=== PATIENT | male | born 1965 | race Caucasian/White ===

== ENCOUNTER 2018-01-02 20:26 | Inpatient (IN) | payer OTHER, SELFPAY ==
[2018-01-02 20:26] VITALS: BP 157/87; PULSE 89; RESP 24; TEMP 36.9; O2SAT 86; BMI 43.5
--- NOTE | 2018-01-02 20:37 | RAD_ITS ---
STUDY: X-RAY CHEST REASON FOR EXAM: Male, 52 years old. Lower extremity swelling TECHNIQUE: Frontal view COMPARISON: July 29, 2017 FINDINGS: The lungs are expanded. There is mild left basilar atelectasis. Normal size heart. Normal mediastinum and li. Normal visualized pulmonary arteries. Normal visualized aortic arch and descending thoracic aorta. Normal visualized thoracic spine. Normal visualized ribs, clavicles, and shoulders. There is no demonstrated abnormality of the visualized soft tissue structures of the upper abdomen. RAD/Chest 1 View (Portable) IMPRESSION: Mild left basilar atelectasis. Electronically Signed: Timoteo Barney DO at 21:27 EDT Tel [phone], Service support ,
--- NOTE | 2018-01-02 20:37 | EKG12_ITS ---
Test Reason : Blood Pressure : / mmHG Vent. Rate : 078 BPM Atrial Rate : 078 BPM P-R Int : 158 ms QRS Dur : 114 ms QT Int : 394 ms P-R-T Axes : 055 -23 033 degrees QTc Int : 449 ms Normal sinus rhythm Normal ECG Confirmed by OSIRIS HANNAH MD ([id number]), editorial specialist JOJO STRANGE ([id number] on 01/08/2018 3:38:42 PM Referred By: ISSA Confirmed By:OSIRIS HANNAH MD
--- NOTE | 2018-01-02 20:51 | ED.VISSUMM ---
- ER Visit Summary Date of Service: 01/02/18 Chief Complaint: Bilateral leg swelling and shortness of breath History of Present Illness: The patient is a 52 M presenting with bilateral leg swelling and shortness of breath. This has been ongoing for the past week. He saw his primary care physician yesterday. He doubled his dose of Lasix this morning. He had no improvement. He has shortness of breath with exertion. He has gained 42 pounds since August. He denies chest pain. Denies fever cough or other complaints. Physical Examination: Vitals are stable. Patient is afebrile. Alert no acute distress. Pulse ox 86% on room air HEENT exam is unremarkable. Neck is supple. Lungs are wheezing bilaterally. Heart is regular rate and rhythm. Abdomen is soft nontender nondistended. Extremities symmetric edema Skin is warm and dry. No focal neurologic deficit. Remainder of exam is unremarkable. Emergency Department Course and Treatment: Patient is given albuterol and Atrovent aerosols. He was given Solumedrol IV. EKG is sinus rate is 78 with no acute ischemic changes. Chest x-ray shows left basilar atelectasis. CBC chemistries unremarkable other than glucose 191. Troponin is negative. BNP normal. He was given Lasix IV. He is hypoxic at rest. He has no home O2. Discussed with the hospitalist for admission. Disposition: Admission Impression: COPD exacerbation, hypoxia, fluid overload This note was generated with [employer] dictation software. It may contain incorrect words, spelling, and punctuation that were not noted in review of the chart prior to signing ED Disposition - Plan for ED Patient: Chief Complaint: Edema Referrals: Thompson Ramos DO [Primary Care Provider] -
[2018-01-02] MEDS: Ipratropium/Albuterol Sulfate 3 ML AMPUL.NEB INHALATION (20:54)
[2018-01-02] MEDS: Albuterol 2.5 MG/3 ML VIAL.NEB. INHALATION ×2 (20:54)
[2018-01-02 20:55] VITALS: PULSE 82; RESP 12
[2018-01-02 20:59] LABS: Absolute Neutrophil Count 4.3 X10^3/uL (2.0-7.7); Basophil# 0.06 X10^3/uL; Basophil% 0.9 % (0-1); Eosinophil# 0.11 X10^3/uL; Eosinophils% 1.7 % (0-5); Hematocrit 43.1 % (40-54); Hemoglobin 14.8 g/dl (13.0-16.5); Lymphocyte % 22.8 % (19-41); Mean Corp Hgb Conc 34.3 g/gl (32-36); Mean Corpuscular Hgb 32.4 pg (27.0-32.0); Mean Corpuscular Volume 94.3 fL (80-94); Mean Platelet Vol. 9.2 fl (6.2-12.0); Monocyte# 0.64 X10^3/uL; Monocyte% 9.7 % (0-10); Neutrophil # 4.26 X10^3/uL (2.7-7.7); Neutrophil % 64.7 % (47-70); Platelet Count 220 K/mm3 (150-450); RBC Distribution Width CV 12.9 % (11.6-14.6); RBC Distribution Width SD 43.3 fl (35.1-43.9); Red Blood Count 4.57 M/mm3 (4.6-6.2); White Blood Count 6.6 K/mm3 (4.4-11.0)
[2018-01-02 21:00] LABS: POSITIVE DIFFERENTIAL NO
[2018-01-02 21:01] LABS: POSITIVE COUNT NO; POSITIVE MORPHOLOGY NO
[2018-01-02 21:12] LABS: Anion Gap 11 (5-15); BUN 14 mg/dL (7-18); BUN/Creat Ratio 14.4 RATIO (10-20); Calcium,Total 8.3 mg/dL (8.5-10.1); Chloride 101 mmol/L (98-107); Creatinine, Serum 0.97 mg/dL (0.70-1.30); EST Glomerular Filtration Rate 86 mL/min (>60); Est Glom Filt Rate - Afr Amer 104 mL/min (>60); Estimated Creatinine Clearance 97.78 ml/min; Glucose 191 mg/dL (74-106); Potassium 3.5 mmol/L (3.5-5.1); Sodium Level 138 mmol/L (136-145)
[2018-01-02 21:23] VITALS: PULSE 83; RESP 16
[2018-01-02 22:13] LABS: BNP,B-Type NATRIURETIC PEPTIDE 18.4 pg/mL (0-100)
[2018-01-02 22:36] VITALS: BP 152/72; PULSE 87; RESP 16; O2SAT 94
[2018-01-02] MEDS: Furosemide 40 MG/4 ML Vial IV (22:36)
[2018-01-02] MEDS: Ondansetron 4 MG/2 ML Vial IV (22:36)
[2018-01-02] MEDS: MethylPREDNISolone 125 MG/2 ML Vial IV (22:36)
[2018-01-02] MEDS: Morphine 4 MG/ML Syringe IV (22:36)
[2018-01-02 22:38] VITALS: BP 152/72; PULSE 86; O2SAT 94
--- NOTE | 2018-01-02 22:47 | PCM.HP.STD ---
Problem List (1) Tobacco abuse Status: Chronic (2) Chronic hypoxemic respiratory failure Status: Chronic (3) CHF (congestive heart failure) Status: Chronic Qualifiers: (4) Hypertension Status: Chronic Qualifiers: (5) Dyslipidemia Status: Chronic (6) MEREDITH treated with BiPAP Status: Chronic (7) COPD (chronic obstructive pulmonary disease) Status: Chronic Qualifiers: History of Present Illness Date of Admission: 01/02/18 Chief Complaint: Bilateral leg pain and swelling. The patient is a 52 year old M with past medical history as mentioned above presented to the emergency room because of 1 week history of bilateral leg pain and swelling. He mentioned that his symptoms started around 1 week ago with progressively increasing bilateral leg swelling, equal on both sides, associated with dull aching pain, not radiating, constant, sometimes aggravated by standing and relieved by rest and without other associated symptoms. According to the opposition, patient complained of shortness of breath as well. For me, he denies any shortness of breath. Denied cough or sputum production. Denied orthopnea or PND. He denied sore throat, sinus or nasal congestion. Denies fever or chills. He does have a history of COPD and he mentioned that he was discharged from the hospital on oxygen to home back in August, but later, he was taken off oxygen. He had a history of hypertension which seemed to be under fair control with Norvasc, Cardizem and metoprolol. He has a history of type 2 diabetes mellitus and apparently, he was started recently on metformin. His hemoglobin A1c was 6.7 on August,. In the emergency room and according to the physician, patient was dyspneic, tachypneic and having wheezing. His pulse oximeter was 86% on room air. He received DuoNeb, albuterol, IV Lasix and IV salmeterol. Patient remained dyspneic and tachypneic. He is afebrile, blood pressure and heart rate are stable. His routine blood work was unremarkable. His troponin and BNP was normal. His EKG revealed normal sinus rhythm without evidence of acute ischemic changes. Chest x-ray showed no obvious infiltrate, consolidation or CHF. He is being admitted for mild acute COPD exacerbation with hypoxia and bilateral leg edema/pain due to probable acute on chronic diastolic CHF. Past Medical History Past Medical History (Chronic Problems): Chronic Problems (Last Updated 01/02/18 @ 22:47 by Shira Rios MD) Alcohol abuse (Chronic) Tobacco abuse (Chronic) Chronic hypoxemic respiratory failure (Chronic) Dyspnea (Chronic) CHF (congestive heart failure) (Chronic) Hypertension (Chronic) Dyslipidemia (Chronic) MEREDITH treated with BiPAP (Chronic) COPD (chronic obstructive pulmonary disease) (Chronic) Allergies losartan Adverse Reaction (Verified 01/02/18 20:28) Angioedema Home Medications: Ambulatory Orders Medication Instructions Recorded Amlodipine [Norvasc] 10 mg PO DAILY 07/29/17 Pravastatin Sodium 80 mg PO QHS 07/29/17 Diltiazem CD [Cardizem CD] 180 mg PO DAILY #30 cap 08/03/17 Folic Acid 1 mg PO DAILY@0800 #30 tab 08/03/17 Furosemide [Lasix] 40 mg PO BID #60 tab 08/03/17 Metoprolol Tartrate [Lopressor 25 mg PO BID #60 tab 08/03/17 (beta fang)] Famotidine [Pepcid] 20 mg PO BID #6 tab 08/09/17 Metformin HCl 500 mg PO BID #60 tab 08/09/17 albuterol sulfate 90 mcg/actuation 2 puff INHALATION Q4H PRN #1 ea 10/25/17 breath activated powder inhaler Surgical History: appendectomy, arthroscopy, knee, cataract Psychiatric History: No pertinent psych hx Lives: Spouse/ Significant Other Smoking Status: Former smoker Alcohol: None Drugs: None - *Family History Paternal History Items: Heart Disease - Age of 53 of [place], uncles all have severe heart disease Maternal History Items: Cancer - renal Sibling History Items: No pertinent history Review of Systems Constitutional: Denies: Anorexia, Chills, Fever, Weakness Eyes: Denies: Blurred vision, Double vision, Drainage, Redness HEENT: Denies: Difficulty Hearing, Ear Pain, Eye Pain, Nasal Congestion, Sore Throat Cardiovascular: Reports: Edema. Denies: Chest Pain, Chest Pressure, Chest Tightness, Light Headedness, Orthopnea, Syncope Respiratory: Denies: Cough, Pleuritic Pain, Shortness of Breath, Sputum production, Wheezing Gastrointestinal: Denies: Abdominal Pain, Constipation, Diarrhea, Nausea, Vomiting Genitourinary: Denies: Dysuria, Frequency, Hematuria Musculoskeletal: Reports: Leg Pain. Denies: Arm Pain, Back Pain Skin: Denies: Dryness, Rash Neurological: Denies: Balance problems, Blurred vision, Change in Speech, Slurred speech, Confusion, Focal weakness, Headaches, Incoordination Psychiatric: Denies: Anxiety, Depression Endocrine: Denies: Change in Body Habitus, Polydipsia VTE Information - Inpt Only VTE Present on Admission: No VTE Mechan Device Prophylaxis: None VTE Pharm Prophylaxis ordered?: Yes - Physical Exam General: Alert, Oriented x3, Cooperative, - - Moderately short of breath. HEENT: Atraumatic, PERRLA, EOMI Oral: Moist Mucosa, No Gingival or Mucosal Lesions/ Ulcerations Neck: Supple, No JVD, Negative Carotid Bruits Lungs: Clear to auscultation, No wheeze, No rales, Diminished, Rhonchi Cardiovascular: Regular rate, Regular Rhythm, Normal S1, Normal S2, PMI Normal Abdomen: Bowel Sounds Present, Soft, Non Tender, Non-Distended, No Hepato-splenomegaly Extremities: No clubbing, No cyanosis, Edema - ++ Edema. Skin: No rashes, No breakdown Musculoskeletal: No Tenderness to Palpation of Joints or Extremities Lymphatic: No Cervical, Supraclavicular, or Inguinal Adenopathy Neurological: Cranial nerves II-XII grossly intact, Motor Exam 5/5 strength throughout Psych/Mental Status: Normal Affect, Appropriate, Alert and oriented to time, place, person, mood and affect Vital Signs Temp Pulse Resp BP Pulse Ox 98.5 F 86 16 152/72 H 94 01/02/18 20:26 01/02/18 22:38 01/02/18 22:36 01/02/18 22:38 01/02/18 22:38 Oxygen Flow Rate (L/min) 2 Oxygen Delivery Method Nasal Cannula Laboratory Tests 01/02/18 01/02/18 01/02/18 Range/Units 20:40 20:40 20:40 WBC 6.6 (4.4-11.0) K/mm3 RBC 4.57 L (4.6-6.2) M/mm3 Hgb 14.8 (13.0-16.5) g/dl Hct 43.1 (40-54) % MCV 94.3 H (80-94) fL MCH 32.4 H (27.0-32.0) pg MCHC 34.3 (32-36) g/gl RDW 12.9 (11.6-14.6) % RDW Differential 43.3 (35.1-43.9) fl Plt Count 220 (150-450) K/mm3 MPV 9.2 (6.2-12.0) fl Immature Gran % (Auto) 0.200 (0.0-0.9) % Neut % (Auto) 64.7 (47-70) % Lymph % (Auto) 22.8 (19-41) % [place] % (Auto) 9.7 (0-10) % Eos % (Auto) 1.7 (0-5) % Baso % (Auto) 0.9 (0-1) % Absolute Neuts (auto) 4.3 (2.0-7.7) X10^3/uL Absolute Lymphs (auto) 1.50 (0.83-4.51) X10^3/ul Total Counted Not Reportable Sodium 138 (136-145) mmol/L Potassium 3.5 (3.5-5.1) mmol/L Chloride 101 (98-107) mmol/L Carbon Dioxide 26.0 (21.0-32.0) mmol/L Anion Gap 11 (5-15) BUN 14 (7-18) mg/dL Creatinine 0.97 (0.70-1.30) mg/dL Estim Creat Clear Calc 97.78 ml/min Est GFR (MDRD) Af Amer 104 (>60) mL/min Est GFR (MDRD) Non-Af 86 (>60) mL/min BUN/Creatinine Ratio 14.4 (10-20) RATIO Glucose 191 H (74-106) mg/dL Calcium 8.3 L (8.5-10.1) mg/dL Troponin I < 0.02 (<0.06) ng/mL B-Natriuretic Peptide 18.4 (0-100) pg/mL Clinical Impression(s) from Imaging Studies Chest X-Ray 01/02/18 20:37 IMPRESSION: Mild left basilar atelectasis. Electronically Signed: Timoteo Barney DO at 21:27 EDT Tel [phone], Service support , Assessment/Plan This is a 52 years old male patient presented to the emergency room because of bilateral leg swelling and pain and according to a physician, patient complained of shortness of breath, found to have acute COPD exacerbation with hypoxia and probable acute on chronic diastolic CHF. #1 mild acute COPD exacerbation/hypoxia: Reportedly, patient was dyspneic and tachypneic as well as having significant wheezing. He received DuoNeb, albuterol and IV Solu-Medrol. When I saw the patient, his chest was almost clear but he remained on 2 L of oxygen. His pulse ox upon arrival was 86% on room air. Chest x-ray showed no acute infiltrate. EKG reviewed as above. Plan: Admit to PCU, cardiac monitoring, oxygen by nasal cannula to keep O2 saturation more than 92%, DuoNeb every 6 hours, albuterol as needed, prednisone 40 mg p.o. daily, incentive spirometer, chest physical therapy, pulmonology consult. #2 probable acute on chronic diastolic CHF: This is based on symptoms of bilateral leg swelling and edema. Patient denied dyspnea, orthopnea or PND. He had 2D echocardiogram back in July, and revealed ejection fraction 65%. Patient was on Lasix 40 mg twice daily at home. He does have significant bilateral leg edema. Plan: IV Lasix, fluid restriction to less than 1500 cc daily continue metoprolol. #3 COPD/chronic respiratory failure: Patient has COPD, he quit smoking recently. According to the patient, he was on oxygen for couple of months on August, and he was taken off that oxygen since then. At this time, pulse ox was 86% on room air. It improved with oxygen 2 L. Plan as above. #4 hypertension: Blood pressure stable, continue Norvasc, Cardizem and metoprolol. #5 type 2 diabetes mellitus: ADA diet, Accu-Cheks, insulin scale, hold metformin. #6 obstructive sleep apnea. Continue BiPAP with the same settings. Pulmonology consult. #7 hyperlipidemia: Continue statins. #8 DVT prophylaxis: Subcu Lovenox. This note was generated with [employer] dictation software. It may contain incorrect words, spelling, and punctuation that were not noted in checking the note before signing. Code Visit Inpatient E&M: 76531 Init Hosp L3
--- NOTE | 2018-01-02 22:51 | HP.PCM_ITS ---
Problem List (1) Tobacco abuse Status: Chronic (2) Chronic hypoxemic respiratory failure Status: Chronic (3) CHF (congestive heart failure) Status: Chronic Qualifiers: (4) Hypertension Status: Chronic Qualifiers: (5) Dyslipidemia Status: Chronic (6) MEREDITH treated with BiPAP Status: Chronic (7) COPD (chronic obstructive pulmonary disease) Status: Chronic Qualifiers: History of Present Illness Date of Admission: 01/02/18 Chief Complaint: Bilateral leg pain and swelling. The patient is a 52 year old M with past medical history as mentioned above presented to the emergency room because of 1 week history of bilateral leg pain and swelling. He mentioned that his symptoms started around 1 week ago with progressively increasing bilateral leg swelling, equal on both sides, associated with dull aching pain, not radiating, constant, sometimes aggravated by standing and relieved by rest and without other associated symptoms. According to the opposition, patient complained of shortness of breath as well. For me, he denies any shortness of breath. Denied cough or sputum production. Denied orthopnea or PND. He denied sore throat, sinus or nasal congestion. Denies fever or chills. He does have a history of COPD and he mentioned that he was discharged from the hospital on oxygen to home back in August, but later, he was taken off oxygen. He had a history of hypertension which seemed to be under fair control with Norvasc, Cardizem and metoprolol. He has a history of type 2 diabetes mellitus and apparently, he was started recently on metformin. His hemoglobin A1c was 6.7 on August,. In the emergency room and according to the physician, patient was dyspneic, tachypneic and having wheezing. His pulse oximeter was 86% on room air. He received DuoNeb, albuterol, IV Lasix and IV salmeterol. Patient remained dyspneic and tachypneic. He is afebrile, blood pressure and heart rate are stable. His routine blood work was unremarkable. His troponin and BNP was normal. His EKG revealed normal sinus rhythm without evidence of acute ischemic changes. Chest x-ray showed no obvious infiltrate, consolidation or CHF. He is being admitted for mild acute COPD exacerbation with hypoxia and bilateral leg edema/pain due to probable acute on chronic diastolic CHF. Past Medical History Past Medical History (Chronic Problems): Chronic Problems (Last Updated 01/02/18 @ 22:47 by Shira Rios MD) Alcohol abuse (Chronic) Tobacco abuse (Chronic) Chronic hypoxemic respiratory failure (Chronic) Dyspnea (Chronic) CHF (congestive heart failure) (Chronic) Hypertension (Chronic) Dyslipidemia (Chronic) MEREDITH treated with BiPAP (Chronic) COPD (chronic obstructive pulmonary disease) (Chronic) Allergies losartan Adverse Reaction (Verified 01/02/18 20:28) Angioedema Home Medications: Ambulatory Orders Medication Instructions Recorded Amlodipine [Norvasc] 10 mg PO DAILY 07/29/17 Pravastatin Sodium 80 mg PO QHS 07/29/17 Diltiazem CD [Cardizem CD] 180 mg PO DAILY #30 cap 08/03/17 Folic Acid 1 mg PO DAILY@0800 #30 tab 08/03/17 Furosemide [Lasix] 40 mg PO BID #60 tab 08/03/17 Metoprolol Tartrate [Lopressor 25 mg PO BID #60 tab 08/03/17 (beta fang)] Famotidine [Pepcid] 20 mg PO BID #6 tab 08/09/17 Metformin HCl 500 mg PO BID #60 tab 08/09/17 albuterol sulfate 90 mcg/actuation 2 puff INHALATION Q4H PRN #1 ea 10/25/17 breath activated powder inhaler Surgical History: appendectomy, arthroscopy, knee, cataract Psychiatric History: No pertinent psych hx Lives: Spouse/ Significant Other Smoking Status: Former smoker Alcohol: None Drugs: None - *Family History Paternal History Items: Heart Disease - Age of 53 of [place], uncles all have severe heart disease Maternal History Items: Cancer - renal Sibling History Items: No pertinent history Review of Systems Constitutional: Denies: Anorexia, Chills, Fever, Weakness Eyes: Denies: Blurred vision, Double vision, Drainage, Redness HEENT: Denies: Difficulty Hearing, Ear Pain, Eye Pain, Nasal Congestion, Sore Throat Cardiovascular: Reports: Edema. Denies: Chest Pain, Chest Pressure, Chest Tightness, Light Headedness, Orthopnea, Syncope Respiratory: Denies: Cough, Pleuritic Pain, Shortness of Breath, Sputum production, Wheezing Gastrointestinal: Denies: Abdominal Pain, Constipation, Diarrhea, Nausea, Vomiting Genitourinary: Denies: Dysuria, Frequency, Hematuria Musculoskeletal: Reports: Leg Pain. Denies: Arm Pain, Back Pain Skin: Denies: Dryness, Rash Neurological: Denies: Balance problems, Blurred vision, Change in Speech, Slurred speech, Confusion, Focal weakness, Headaches, Incoordination Psychiatric: Denies: Anxiety, Depression Endocrine: Denies: Change in Body Habitus, Polydipsia VTE Information - Inpt Only VTE Present on Admission: No VTE Mechan Device Prophylaxis: None VTE Pharm Prophylaxis ordered?: Yes - Physical Exam General: Alert, Oriented x3, Cooperative, - - Moderately short of breath. HEENT: Atraumatic, PERRLA, EOMI Oral: Moist Mucosa, No Gingival or Mucosal Lesions/ Ulcerations Neck: Supple, No JVD, Negative Carotid Bruits Lungs: Clear to auscultation, No wheeze, No rales, Diminished, Rhonchi Cardiovascular: Regular rate, Regular Rhythm, Normal S1, Normal S2, PMI Normal Abdomen: Bowel Sounds Present, Soft, Non Tender, Non-Distended, No Hepato- splenomegaly Extremities: No clubbing, No cyanosis, Edema - ++ Edema. Skin: No rashes, No breakdown Musculoskeletal: No Tenderness to Palpation of Joints or Extremities Lymphatic: No Cervical, Supraclavicular, or Inguinal Adenopathy Neurological: Cranial nerves II-XII grossly intact, Motor Exam 5/5 strength throughout Psych/Mental Status: Normal Affect, Appropriate, Alert and oriented to time, place, person, mood and affect Vital Signs Temp Pulse Resp BP Pulse Ox 98.5 F 86 16 152/72 H 94 01/02/18 20:26 01/02/18 22:38 01/02/18 22:36 01/02/18 22:38 01/02/18 22:38 Oxygen Flow Rate (L/min) 2 Oxygen Delivery Method Nasal Cannula Laboratory Tests 3 01/02/18 01/02/18 01/02/18 Range/Units 20:40 20:40 20:40 WBC 6.6 (4.4-11.0) K/mm3 RBC 4.57 L (4.6-6.2) M/mm3 Hgb 14.8 (13.0-16.5) g/dl Hct 43.1 (40-54) % MCV 94.3 H (80-94) fL MCH 32.4 H (27.0-32.0) pg MCHC 34.3 (32-36) g/gl RDW 12.9 (11.6-14.6) % RDW Differential 43.3 (35.1-43.9) fl Plt Count 220 (150-450) K/mm3 MPV 9.2 (6.2-12.0) fl Immature Gran % (Auto) 0.200 (0.0-0.9) % Neut % (Auto) 64.7 (47-70) % Lymph % (Auto) 22.8 (19-41) % [place] % (Auto) 9.7 (0-10) % Eos % (Auto) 1.7 (0-5) % Baso % (Auto) 0.9 (0-1) % Absolute Neuts (auto) 4.3 (2.0-7.7) X10^3/uL Absolute Lymphs (auto) 1.50 (0.83-4.51) X10^3/ul Total Counted Not Reportable Sodium 138 (136-145) mmol/L Potassium 3.5 (3.5-5.1) mmol/L Chloride 101 (98-107) mmol/L Carbon Dioxide 26.0 (21.0-32.0) mmol/L Anion Gap 11 (5-15) BUN 14 (7-18) mg/dL Creatinine 0.97 (0.70-1.30) mg/dL Estim Creat Clear Calc 97.78 ml/min Est GFR (MDRD) Af Amer 104 (>60) mL/min Est GFR (MDRD) Non-Af 86 (>60) mL/min BUN/Creatinine Ratio 14.4 (10-20) RATIO Glucose 191 H (74-106) mg/dL Calcium 8.3 L (8.5-10.1) mg/dL Troponin I < 0.02 (<0.06) ng/mL B-Natriuretic Peptide 18.4 (0-100) pg/mL Clinical Impression(s) from Imaging Studies Chest X-Ray 01/02/18 20:37 IMPRESSION: Mild left basilar atelectasis. Electronically Signed: Timoteo Barney DO at 21:27 EDT Tel [phone], Service support , Assessment/Plan This is a 52 years old male patient presented to the emergency room because of bilateral leg swelling and pain and according to a physician, patient complained of shortness of breath, found to have acute COPD exacerbation with hypoxia and probable acute on chronic diastolic CHF. #1 mild acute COPD exacerbation/hypoxia: Reportedly, patient was dyspneic and tachypneic as well as having significant wheezing. He received DuoNeb, albuterol and IV Solu-Medrol. When I saw the patient, his chest was almost clear but he remained on 2 L of oxygen. His pulse ox upon arrival was 86% on room air. Chest x-ray showed no acute infiltrate. EKG reviewed as above. Plan : Admit to PCU, cardiac monitoring, oxygen by nasal cannula to keep O2 saturation more than 92%, DuoNeb every 6 hours, albuterol as needed, prednisone 40 mg p.o. daily, incentive spirometer, chest physical therapy, pulmonology consult. #2 probable acute on chronic diastolic CHF: This is based on symptoms of bilateral leg swelling and edema. Patient denied dyspnea, orthopnea or PND. He had 2D echocardiogram back in July, and revealed ejection fraction 65 %. Patient was on Lasix 40 mg twice daily at home. He does have significant bilateral leg edema. Plan: IV Lasix, fluid restriction to less than 1500 cc daily continue metoprolol. #3 COPD/chronic respiratory failure: Patient has COPD, he quit smoking recently. According to the patient, he was on oxygen for couple of months on August, and he was taken off that oxygen since then. At this time, pulse ox was 86% on room air. It improved with oxygen 2 L. Plan as above. #4 hypertension: Blood pressure stable, continue Norvasc, Cardizem and metoprolol. #5 type 2 diabetes mellitus: ADA diet, Accu-Cheks, insulin scale, hold metformin. #6 obstructive sleep apnea. Continue BiPAP with the same settings. Pulmonology consult. #7 hyperlipidemia: Continue statins. #8 DVT prophylaxis: Subcu Lovenox. This note was generated with [employer] dictation software. It may contain incorrect words, spelling, and punctuation that were not noted in checking the note before signing. Code Visit Inpatient E&M: 61096 Init Hosp L3
[2018-01-02 23:51] VITALS: BP 142/83; PULSE 70; RESP 18; TEMP 36.9; O2SAT 93
[2018-01-02 23:54] VITALS: BMI 43.7
[2018-01-03] VITALS (19 sets, daily range): BP systolic 140–154; BP diastolic 73–87; PULSE 78–98; RESP 12–24; TEMP 36.4–36.8; O2SAT 89–95; BMI 43.7
[2018-01-03] MEDS: Ipratropium/Albuterol Sulfate 3 ML AMPUL.NEB INHALATION ×4 (01:47→19:02)
[2018-01-03] MEDS: oxyCODONE 5 MG Tablet PO ×3 (02:04→19:18)
[2018-01-03] MEDS: Furosemide 40 MG/4 ML Vial IV ×3 (05:50→22:43)
[2018-01-03] MEDS: Enoxaparin 40 MG/0.4 ML Syringe SC (05:50)
[2018-01-03 06:53] LABS: Anion Gap 9 (5-15); BUN 15 mg/dL (7-18); BUN/Creat Ratio 13.6 RATIO (10-20); Calcium,Total 8.5 mg/dL (8.5-10.1); Chloride 98 mmol/L (98-107); EST Glomerular Filtration Rate 75 mL/min (>60); Est Glom Filt Rate - Afr Amer 90 mL/min (>60); Estimated Creatinine Clearance 86.22 ml/min; Glucose 234 mg/dL (74-106); Potassium 4.2 mmol/L (3.5-5.1); Sodium Level 138 mmol/L (136-145)
[2018-01-03 07:01] LABS: Bedside Glucose 236 mg/dL (70-110)
[2018-01-03 07:07] LABS: Absolute Lymphocyte Count 0.38 X10^3/ul (0.83-4.51); Absolute Neutrophil Count 5.5 X10^3/uL (2.0-7.7); Basophil# 0.01 X10^3/uL; Basophil% 0.2 % (0-1); Hematocrit 46.1 % (40-54); Hemoglobin 15.3 g/dl (13.0-16.5); Lymphocyte # 0.38 X10^3/ul (4.0); Lymphocyte % 6.4 % (19-41); Mean Corp Hgb Conc 33.2 g/gl (32-36); Mean Corpuscular Hgb 31.8 pg (27.0-32.0); Mean Corpuscular Volume 95.8 fL (80-94); Mean Platelet Vol. 9.4 fl (6.2-12.0); Monocyte# 0.02 X10^3/uL; Monocyte% 0.3 % (0-10); Neutrophil # 5.51 X10^3/uL (2.7-7.7); Neutrophil % 92.9 % (47-70); Platelet Count 234 K/mm3 (150-450); RBC Distribution Width CV 13.1 % (11.6-14.6); RBC Distribution Width SD 44.9 fl (35.1-43.9); Red Blood Count 4.81 M/mm3 (4.6-6.2); White Blood Count 5.9 K/mm3 (4.4-11.0)
[2018-01-03 07:09] LABS: Differential Indicated SCAN CRITERIA MET; POSITIVE COUNT NO; POSITIVE DIFFERENTIAL YES; POSITIVE MORPHOLOGY NO
--- NOTE | 2018-01-03 07:33 | ECHOCS_ITS ---
Reason For Study: dyspnea/SOB Procedure This was a 2D Doppler, Color Flow transthoracic echocardiogram. The study was technically difficult. Due to body habitus. Contrast injection was performed. Exam performed portable in patient room. Left Ventricle Mild concentric left ventricular hypertrophy. The estimated ejection fraction is 65 %. Normal diastology for age. No regional wall motion abnormalities noted. Right Ventricle Mildly dilated right ventricle. Normal systolic function. Atria The left atrium is moderately enlarged. Normal right atrium. Normal atrial septum. Mitral Valve The mitral valve is structurally normal. No prolapse or stenosis seen. Tricuspid Valve Normal tricuspid valve. Trivial tricuspid valve insufficiency. Right ventricular systolic pressure estimated to be 27 mmHg. Aortic Valve Normal aortic valve. Trisinus/trileaflet aortic valve. Pulmonic Valve Normal pulmonic valve. Great Vessels Normal aortic root. Normal arch. Normal inferior vena cava. Inferior vena cava collapse with sniff. Pericardium/Pleural No pericardial effusion. Medication Diluted definity 4.0ml given slow IV push to enhance endocardial definition. MMode/2D Measurements & Calculations LVIDd: 5.5 cm IVSd: 1.3 cm LVOT diam: 2.5 cm LVIDs: 3.7 cm LVPWd: 1.3 cm LVOT area: 4.8 cm2 RVDd: 3.7 cm FS: 33.2 % Ao root diam: 3.2 cm LAV(MOD-bp): 122.6 ml LA A4 area: 27.6 cm2 LA dimension: 5.2 cm LAV(MOD-bp) Indexed: 47.0 ml/m2 LAV(MOD-sp2): 109.7 ml LAV(MOD-sp4): 108.5 ml RA A4 area: 16.4 cm2 Doppler Measurements & Calculations MV E max eleazar: 98.7 cm/sec Lat Peak E' Eleazar: 11.5 cm/sec Med Peak E' Eleazar: 11.4 cm/sec MV A max eleazar: 102.5 cm/sec E/E' lat: 8.6 E/E' med: 8.7 MV E/A: 0.96 Ao V2 max: 228.2 cm/sec LV V1 max: 148.5 cm/sec SV(LVOT): 128.3 ml Ao max P.9 mmHg LV V1 max P.8 mmHg Ao V2 mean: 150.6 cm/sec LV V1 mean P.4 mmHg Ao mean P.2 mmHg LV V1 mean: 99.8 cm/sec Ao V2 VTI: 39.8 cm LV V1 VTI: 26.6 cm JOSY(I,D): 3.2 cm2 JOSY(V,D): 3.1 cm2 PA V2 max: 155.0 cm/sec TR max eleazar: 233.7 cm/sec TR max P.4 mmHg Interpretation Summary Mild concentric left ventricular hypertrophy. The estimated ejection fraction is 65 %. Normal diastology for age. Mildly dilated right ventricle. The left atrium is moderately enlarged. Trivial tricuspid valve insufficiency. Right ventricular systolic pressure estimated to be 27 mmHg. Compared to echo report dated 07/31/2017, no appreciable changes noted. RVSP may be underestimated due to poor echo windows. The study was technically difficult. Contrast injection was performed. Ordering Physician: Eusebio Nair Referring Physician: Thompson Ramos Performed By: Tawana Perez RDCS, RVT
--- NOTE | 2018-01-03 07:37 | PCM.CONS.GEN ---
Problem List (1) Alcohol abuse Status: Chronic (2) Tobacco abuse Status: Chronic (3) Dyspnea Status: Chronic Qualifiers: Dyspnea type: shortness of breath Qualified Code(s): R06.02 - Shortness of breath; R06.00 - Dyspnea, unspecified; R06.01 - Orthopnea (4) CHF (congestive heart failure) Status: Chronic Qualifiers: Heart failure type: diastolic Heart failure chronicity: chronic Qualified Code(s): I50.32 - Chronic diastolic (congestive) heart failure (5) Hypertension Status: Chronic Qualifiers: Hypertension type: essential hypertension (6) Dyslipidemia Status: Chronic (7) MEREDITH treated with BiPAP Status: Chronic (8) COPD (chronic obstructive pulmonary disease) Status: Chronic Qualifiers: COPD type: emphysema Emphysema type: centrilobular Qualified Code(s): J43.2 - Centrilobular emphysema Reason for Consult Date of Consultation: 01/03/18 Reason for Consultation: Hypoxemia History of Present Illness: The patient is a 52 year old M, with past medical history listed below and well-known to me from the outpatient office, who presented to [facility] 1 01/02/2018 secondary to a 1 week history of bilateral leg swelling and pain. Patient states that approximately 1 week ago he noted increasing leg swelling that did not improve with elevation. Patient did attempt to add creams with no improvement. Patient reports pain as a dull aching to burning pain that is nonradiating and constant. This is made worse with standing and there is minimal improvement with elevation and rest. Patient states that over the last 3-4 days he has noted increasing shortness of breath, especially with exertion. Patient has not reported any significant change in cough, congestion, fever, chills, nausea or vomiting. Emergency room, patient was noted to be 86% on room air. Patient had a chest x-ray and CBC that were relatively unremarkable. Patient received aerosol therapy, IV Lasix and Solu-Medrol. Patient was admitted to the floor for further evaluation. On my evaluation, patient reports little subjective change compared to previous. No sick contacts of been reported. Patient does have a history of hypertension and uses Norvasc at baseline. Patient was recently started on metformin secondary to diabetes mellitus type 2. Patient has required supplemental oxygen in the past, but recently had a walking oximetry that showed no desaturation with ambulation. Patient does report to drinking 6-12 beers on a weekly basis. Patient does continue to smoke on a regular basis. Patient readily admits that he does not use his BiPAP at night as prescribed. Patient states he feels this is suffocating. Past Medical History Past Medical History (Chronic Problems): Chronic Problems (Last Updated 01/02/18 @ 22:47 by Shira Rios MD) Alcohol abuse (Chronic) Tobacco abuse (Chronic) Chronic hypoxemic respiratory failure (Chronic) Dyspnea (Chronic) CHF (congestive heart failure) (Chronic) Hypertension (Chronic) Dyslipidemia (Chronic) MEREDITH treated with BiPAP (Chronic) COPD (chronic obstructive pulmonary disease) (Chronic) Allergies losartan Adverse Reaction (Verified 01/02/18 20:28) Angioedema Home Medications: Ambulatory Orders Medication Instructions Recorded Amlodipine [Norvasc] 10 mg PO DAILY 07/29/17 Pravastatin Sodium 80 mg PO QHS 07/29/17 Diltiazem CD [Cardizem CD] 180 mg PO DAILY #30 cap 08/03/17 Folic Acid 1 mg PO DAILY@0800 #30 tab 08/03/17 Furosemide [Lasix] 40 mg PO BID #60 tab 08/03/17 Metoprolol Tartrate [Lopressor 25 mg PO BID #60 tab 08/03/17 (beta fang)] Famotidine [Pepcid] 20 mg PO BID #6 tab 08/09/17 Metformin HCl 500 mg PO BID #60 tab 08/09/17 albuterol sulfate 90 mcg/actuation 2 puff INHALATION Q4H PRN #1 ea 10/25/17 breath activated powder inhaler Surgical History: appendectomy, arthroscopy, knee, cataract Psychiatric History: No pertinent psych hx Lives: Spouse/ Significant Other Smoking Status: Former smoker Alcohol: None Drugs: None - *Family History Paternal History Items: Heart Disease - Age of 53 of [place], uncles all have severe heart disease Maternal History Items: Cancer - renal Sibling History Items: No pertinent history Review of Systems Comment: See HPI, otherwise negative ?10 systems. Objective: Chest x-ray was personally reviewed and was relatively unremarkable. There was some mild left basilar atelectasis noted, but no infiltrates, effusions or hyperinflation was appreciated. - Physical Exam General: Alert, Oriented x3, Cooperative, - - Mild conversational dyspnea. Morbidly obese. Appears older than stated age. HEENT: Atraumatic, PERRLA, EOMI, Normocephalic, - - Light scleral injection without icterus Oral: Moist Mucosa, No Gingival or Mucosal Lesions/ Ulcerations, - - Fair dentition. Mallampati 4. Neck: Supple, No JVD, No Nodes, Trachea Midline Lungs: No rhonchi, No wheeze, No rales, Diminished, - - Symmetric expansion. No dullness to percussion. Cardiovascular: Regular rate, Regular Rhythm, Normal S1, Normal S2, No murmurs, No rub noted, No Gallop Abdomen: Bowel Sounds Present, Soft, Non Tender, Non-Distended, Obese Extremities: No clubbing, No cyanosis, Edema - 4+ lower extremities Skin: - - Venous congestion noted bilateral lower extremities. Slightly warm to the touch, but do improve with elevation. No open sores noted. Musculoskeletal: Tenderness - Palpation of bilateral lower extremities Lymphatic: No Cervical, Supraclavicular, or Inguinal Adenopathy Neurological: Cranial nerves II-XII grossly intact, Motor Exam 5/5 strength throughout, - - Decreased 2 point sensation of the lower extremities noted Psych/Mental Status: Alert and oriented to time, place, person, mood and affect Vital Signs Temp Pulse Resp BP Pulse Ox 36.6 C 86 24 H 149/83 H 92 01/03/18 05:45 01/03/18 07:14 01/03/18 07:14 01/03/18 05:45 01/03/18 07:14 Oxygen Flow Rate (L/min) 3 Oxygen Delivery Method Nasal Cannula Weight: 146.2 kg Body Mass Index (BMI) 43.7 Intake and Output for Last 24 Hours 01/01/18 01/02/18 01/03/18 23:59 23:59 23:59 Intake Total 100 / 100 Output Total 425 / 425 1200 / 1200 Balance -425 / -425 -1100 / -1100 Laboratory Tests Past 24 Hrs 01/03/18 01/03/18 06:15 06:15 WBC 5.9 RBC 4.81 Hgb 15.3 Hct 46.1 MCV 95.8 H MCH 31.8 MCHC 33.2 RDW 13.1 RDW Differential 44.9 H Plt Count 234 MPV 9.4 Immature Gran % (Auto) 0.200 Neut % (Auto) 92.9 H Lymph % (Auto) 6.4 L [place] % (Auto) 0.3 Eos % (Auto) 0.0 Baso % (Auto) 0.2 Absolute Neuts (auto) 5.5 Absolute Lymphs (auto) 0.38 L Total Counted Not Reportable Sodium 138 Potassium 4.2 Chloride 98 Carbon Dioxide 31.0 Anion Gap 9 BUN 15 Creatinine 1.10 Estim Creat Clear Calc 86.22 Est GFR (MDRD) Af Amer 90 Est GFR (MDRD) Non-Af 75 BUN/Creatinine Ratio 13.6 Glucose 234 H Calcium 8.5 POC Glucose 01/03/18 06:52 POC Glucose 236 H Clinical Impression(s) from Imaging Studies Chest X-Ray 01/02/18 20:37 IMPRESSION: Mild left basilar atelectasis. Electronically Signed: Timoteo Barney DO at 21:27 EDT Tel [phone], Service support , Assessment/Plan RECOMMENDATIONS: 1. Obtain echocardiogram 2. Obtain LFTs 3. Consider discontinuation of Norvasc 4. Wean oxygen as tolerated 5. Consider transition to DuoNeb and Pulmicort, discontinue prednisone IMPRESSIONS: 1. Acute hypoxic respiratory insufficiency Patient currently requiring supplemental oxygen to maintain saturations. This is accompanied with significant lower extremity edema. Patient has had concerns for diastolic dysfunction in the past, but no echocardiogram is available for review. Patient does have desaturation with ambulation, so pulmonary hypertension would be a consideration. BNP is not very impressive, but clinical scenario is consistent with acute on chronic diastolic congestive heart failure. Will obtain an echocardiogram for evaluation. Norvasc is known to have complications with lower extremity edema. Might consider an alternative medication for hypertension. Very low clinical suspicion for COPD exacerbation at this time given lack of cough and wheezing. 2. Uncontrolled obstructive sleep apnea Patient readily admits he is not compliant with BiPAP therapy. Stressed to the patient that this can lead to retention with minimal salt intake. Patient also has multiple comorbidities such as hypertension and possible diastolic congestive heart failure, which would be exacerbated by uncontrolled sleep apnea. Patient appears to be pre-contemplative at this time. 3. Regular alcohol and tobacco use Patient does drink alcohol on a consistent basis. Patient may have lower extremity edema secondary to hepatic congestion. Will obtain liver function test for evaluation. Does not have any physical stigmata such as telangiectasias or varices to suggest obvious cirrhosis, but this would be a consideration if LFTs are abnormal. Patient encouraged to discontinue alcohol and tobacco use. 4. Hypertension/diabetes type 2/hyperlipidemia/morbid obesity Complicates care, management, recovery and prognosis. Will need to watch sugars closely given systemic steroids. These can likely be discontinued. Patient may benefit from transition from Norvasc to another antihypertensive given lower extremity edema. Code Visit Inpatient E&M: 93407 Init Hosp L3
--- NOTE | 2018-01-03 07:49 | CON.PCM_ITS ---
Problem List (1) Alcohol abuse Status: Chronic (2) Tobacco abuse Status: Chronic (3) Dyspnea Status: Chronic Qualifiers: Dyspnea type: shortness of breath Qualified Code(s): R06.02 - Shortness of breath; R06.00 - Dyspnea, unspecified; R06.01 - Orthopnea (4) CHF (congestive heart failure) Status: Chronic Qualifiers: Heart failure type: diastolic Heart failure chronicity: chronic Qualified Code(s): I50.32 - Chronic diastolic (congestive) heart failure (5) Hypertension Status: Chronic Qualifiers: Hypertension type: essential hypertension (6) Dyslipidemia Status: Chronic (7) MEREDITH treated with BiPAP Status: Chronic (8) COPD (chronic obstructive pulmonary disease) Status: Chronic Qualifiers: COPD type: emphysema Emphysema type: centrilobular Qualified Code(s): J43.2 - Centrilobular emphysema Reason for Consult Date of Consultation: 01/03/18 Reason for Consultation: Hypoxemia History of Present Illness: The patient is a 52 year old M, with past medical history listed below and well- known to me from the outpatient office, who presented to [facility] 1 01/02/2018 secondary to a 1 week history of bilateral leg swelling and pain. Patient states that approximately 1 week ago he noted increasing leg swelling that did not improve with elevation. Patient did attempt to add creams with no improvement. Patient reports pain as a dull aching to burning pain that is nonradiating and constant. This is made worse with standing and there is minimal improvement with elevation and rest. Patient states that over the last 3-4 days he has noted increasing shortness of breath, especially with exertion. Patient has not reported any significant change in cough, congestion , fever, chills, nausea or vomiting. Emergency room, patient was noted to be 86% on room air. Patient had a chest x- ray and CBC that were relatively unremarkable. Patient received aerosol therapy , IV Lasix and Solu-Medrol. Patient was admitted to the floor for further evaluation. On my evaluation, patient reports little subjective change compared to previous. No sick contacts of been reported. Patient does have a history of hypertension and uses Norvasc at baseline. Patient was recently started on metformin secondary to diabetes mellitus type 2. Patient has required supplemental oxygen in the past, but recently had a walking oximetry that showed no desaturation with ambulation. Patient does report to drinking 6-12 beers on a weekly basis. Patient does continue to smoke on a regular basis. Patient readily admits that he does not use his BiPAP at night as prescribed. Patient states he feels this is suffocating. Past Medical History Past Medical History (Chronic Problems): Chronic Problems (Last Updated 01/02/18 @ 22:47 by Shira Rios MD) Alcohol abuse (Chronic) Tobacco abuse (Chronic) Chronic hypoxemic respiratory failure (Chronic) Dyspnea (Chronic) CHF (congestive heart failure) (Chronic) Hypertension (Chronic) Dyslipidemia (Chronic) MEREDITH treated with BiPAP (Chronic) COPD (chronic obstructive pulmonary disease) (Chronic) Allergies losartan Adverse Reaction (Verified 01/02/18 20:28) Angioedema Home Medications: Ambulatory Orders Medication Instructions Recorded Amlodipine [Norvasc] 10 mg PO DAILY 07/29/17 Pravastatin Sodium 80 mg PO QHS 07/29/17 Diltiazem CD [Cardizem CD] 180 mg PO DAILY #30 cap 08/03/17 Folic Acid 1 mg PO DAILY@0800 #30 tab 08/03/17 Furosemide [Lasix] 40 mg PO BID #60 tab 08/03/17 Metoprolol Tartrate [Lopressor 25 mg PO BID #60 tab 08/03/17 (beta fang)] Famotidine [Pepcid] 20 mg PO BID #6 tab 08/09/17 Metformin HCl 500 mg PO BID #60 tab 08/09/17 albuterol sulfate 90 mcg/actuation 2 puff INHALATION Q4H PRN #1 ea 10/25/17 breath activated powder inhaler Surgical History: appendectomy, arthroscopy, knee, cataract Psychiatric History: No pertinent psych hx Lives: Spouse/ Significant Other Smoking Status: Former smoker Alcohol: None Drugs: None - *Family History Paternal History Items: Heart Disease - Age of 53 of [place], uncles all have severe heart disease Maternal History Items: Cancer - renal Sibling History Items: No pertinent history Review of Systems Comment: See HPI, otherwise negative ?10 systems. Objective: Chest x-ray was personally reviewed and was relatively unremarkable. There was some mild left basilar atelectasis noted, but no infiltrates, effusions or hyperinflation was appreciated. - Physical Exam General: Alert, Oriented x3, Cooperative, - - Mild conversational dyspnea. Morbidly obese. Appears older than stated age. HEENT: Atraumatic, PERRLA, EOMI, Normocephalic, - - Light scleral injection without icterus Oral: Moist Mucosa, No Gingival or Mucosal Lesions/ Ulcerations, - - Fair dentition. Mallampati 4. Neck: Supple, No JVD, No Nodes, Trachea Midline Lungs: No rhonchi, No wheeze, No rales, Diminished, - - Symmetric expansion. No dullness to percussion. Cardiovascular: Regular rate, Regular Rhythm, Normal S1, Normal S2, No murmurs, No rub noted, No Gallop Abdomen: Bowel Sounds Present, Soft, Non Tender, Non-Distended, Obese Extremities: No clubbing, No cyanosis, Edema - 4+ lower extremities Skin: - - Venous congestion noted bilateral lower extremities. Slightly warm to the touch, but do improve with elevation. No open sores noted. Musculoskeletal: Tenderness - Palpation of bilateral lower extremities Lymphatic: No Cervical, Supraclavicular, or Inguinal Adenopathy Neurological: Cranial nerves II-XII grossly intact, Motor Exam 5/5 strength throughout, - - Decreased 2 point sensation of the lower extremities noted Psych/Mental Status: Alert and oriented to time, place, person, mood and affect Vital Signs Temp Pulse Resp BP Pulse Ox 36.6 C 86 24 H 149/83 H 92 01/03/18 05:45 01/03/18 07:14 01/03/18 07:14 01/03/18 05:45 01/03/18 07:14 Oxygen Flow Rate (L/min) 3 Oxygen Delivery Method Nasal Cannula Weight: 146.2 kg Body Mass Index (BMI) 43.7 Intake and Output for Last 24 Hours 01/01/18 01/02/18 01/03/18 23:59 23:59 23:59 Intake Total 100 / 100 Output Total 425 / 425 1200 / 1200 Balance -425 / -425 -1100 / -1100 Laboratory Tests Past 24 Hrs 01/03/18 01/03/18 06:15 06:15 WBC 5.9 RBC 4.81 Hgb 15.3 Hct 46.1 MCV 95.8 H MCH 31.8 MCHC 33.2 RDW 13.1 RDW Differential 44.9 H Plt Count 234 MPV 9.4 Immature Gran % (Auto) 0.200 Neut % (Auto) 92.9 H Lymph % (Auto) 6.4 L [place] % (Auto) 0.3 Eos % (Auto) 0.0 Baso % (Auto) 0.2 Absolute Neuts (auto) 5.5 Absolute Lymphs (auto) 0.38 L Total Counted Not Reportable Sodium 138 Potassium 4.2 Chloride 98 Carbon Dioxide 31.0 Anion Gap 9 BUN 15 Creatinine 1.10 Estim Creat Clear Calc 86.22 Est GFR (MDRD) Af Amer 90 Est GFR (MDRD) Non-Af 75 BUN/Creatinine Ratio 13.6 Glucose 234 H Calcium 8.5 POC Glucose 01/03/18 06:52 POC Glucose 236 H Clinical Impression(s) from Imaging Studies Chest X-Ray 01/02/18 20:37 IMPRESSION: Mild left basilar atelectasis. Electronically Signed: Timoteo Barney DO at 21:27 EDT Tel [phone], Service support , Assessment/Plan RECOMMENDATIONS: 1. Obtain echocardiogram 2. Obtain LFTs 3. Consider discontinuation of Norvasc 4. Wean oxygen as tolerated 5. Consider transition to DuoNeb and Pulmicort, discontinue prednisone IMPRESSIONS: 1. Acute hypoxic respiratory insufficiency Patient currently requiring supplemental oxygen to maintain saturations. This is accompanied with significant lower extremity edema. Patient has had concerns for diastolic dysfunction in the past, but no echocardiogram is available for review. Patient does have desaturation with ambulation, so pulmonary hypertension would be a consideration. BNP is not very impressive, but clinical scenario is consistent with acute on chronic diastolic congestive heart failure. Will obtain an echocardiogram for evaluation. Norvasc is known to have complications with lower extremity edema. Might consider an alternative medication for hypertension. Very low clinical suspicion for COPD exacerbation at this time given lack of cough and wheezing. 2. Uncontrolled obstructive sleep apnea Patient readily admits he is not compliant with BiPAP therapy. Stressed to the patient that this can lead to retention with minimal salt intake. Patient also has multiple comorbidities such as hypertension and possible diastolic congestive heart failure, which would be exacerbated by uncontrolled sleep apnea. Patient appears to be pre-contemplative at this time. 3. Regular alcohol and tobacco use Patient does drink alcohol on a consistent basis. Patient may have lower extremity edema secondary to hepatic congestion. Will obtain liver function test for evaluation. Does not have any physical stigmata such as telangiectasias or varices to suggest obvious cirrhosis, but this would be a consideration if LFTs are abnormal. Patient encouraged to discontinue alcohol and tobacco use. 4. Hypertension/diabetes type 2/hyperlipidemia/morbid obesity Complicates care, management, recovery and prognosis. Will need to watch sugars closely given systemic steroids. These can likely be discontinued. Patient may benefit from transition from Norvasc to another antihypertensive given lower extremity edema. Code Visit Inpatient E&M: 39045 Init Hosp L3
[2018-01-03 08:03] LABS: AST(SGOT) 27 U/L (15-37); Alanine Aminotransfer ALT/SGPT 34 U/L (16-61); Albumin, Serum 3.8 g/dL (3.2-5.0); Alkaline Phosphatase 74 U/L (45-117); Bilirubin, Direct 0.05 mg/dL (0.00-0.30); Globulin 4.3 g/dL (2.2-4.2); Protein, Total 8.1 g/dL (6.4-8.2)
[2018-01-03] MEDS: predniSONE 20 MG Tablet 40 MG PO (08:11)
[2018-01-03] MEDS: Folic Acid 1 MG Tablet PO (08:11)
[2018-01-03] MEDS: Metoprolol Tartrate 25 MG Tablet PO ×2 (08:12→22:43)
[2018-01-03] MEDS: dilTIAZem CD 180 MG Capsule PO (08:12)
[2018-01-03] MEDS: guaiFENesin 1,200 MG Tablet 1200 MG PO ×2 (08:12→22:44)
[2018-01-03] MEDS: Famotidine 20 MG Tablet PO ×2 (08:12→22:44)
[2018-01-03] MEDS: amLODIPine 10 MG Tablet PO (08:12)
--- NOTE | 2018-01-03 10:39 | NURSING ---
pt walked approx 15ft with physical therapy and satted 96% on RA
[2018-01-03 11:36] LABS: Bedside Glucose 293 mg/dL (70-110)
--- NOTE | 2018-01-03 11:50 | CASEMGMT ---
Face to Face with patient for initial transition planning/care coordination assessment. LUIS M YU introduced self and role at [facility], pt voices understanding and consents to assessment at this time. Pt is sitting up in chair in no distress at this time. Pt is A/O x4 at this time and answers all questions appropriately. Care providers, pharmacy, and demographics verified. See attached link. Pt states that he would like to update HPOA at this time to have girlfriend as primary HPOA. Tai SW aware at this time and into room to complete new HPOA paper with pt at this time. This LUIS M YU witnessed pt's signature. Pt voices no further questions/concerns at this time. Advised pt to ask for CM if any further questions/concerns/needs arise, voices understanding. PLAN: [place] LUIS M YU
--- NOTE | 2018-01-03 15:06 | CASEMGMT ---
RN GIGI said patient would like to redo his healthcare power of erisa attorney. SW spoke with patient and completed a new healthcare power of erisa attorney with him. Copies made, one placed in his chart, and others given to patient. Tracie AMIN
--- NOTE | 2018-01-03 16:29 | PCM.PN.HOSP ---
Subjective: CC: Shortness of breath and leg edema Objective: He presented to the ED due to bilateral leg swelling and pain , he is found to have acute on chronic diastolic CHF. Vitals/I&O's: Vital Signs Temp Pulse Resp BP Pulse Ox 97.5 F L 94 12 144/77 H 95 01/03/18 14:10 01/03/18 15:00 01/03/18 14:10 01/03/18 14:10 01/03/18 14:10 Oxygen Flow Rate (L/min) 3 Oxygen Delivery Method Nasal Cannula Weight: 146.2 kg Body Mass Index (BMI) 43.7 Intake and Output for Last 24 Hours 01/01/18 01/02/18 01/03/18 23:59 23:59 23:59 Intake Total 460 / 460 Output Total 425 / 425 1999 Balance -425 / -425 -1540 / -1540 General: Alert, Oriented x3 HEENT: Atraumatic Oral: Moist Mucosa Neck: Supple, No JVD Lungs: Clear to auscultation Cardiovascular: Regular rate, Normal S1, Normal S2 Abdomen: Soft, Non Tender, Non-Distended Extremities: Edema Neurological: Cranial nerves II-XII grossly intact, Neuro grossly intact, Motor Exam 5/5 strength throughout Microbiology Past 72 Hours 01/02/18 23:55 Mucosa - Nasopharyngeal Respiratory Panel (PCR) - Final Laboratory Results 01/03/18 06:15: WBC 5.9, RBC 4.81, Hgb 15.3, Hct 46.1, MCV 95.8 H, MCH 31.8, MCHC 33.2, RDW 13.1, RDW Differential 44.9 H, Plt Count 234, MPV 9.4, Immature Gran % (Auto) 0.200, Neut % (Auto) 92.9 H, Lymph % (Auto) 6.4 L, [place] % (Auto) 0.3, Eos % (Auto) 0.0, Baso % (Auto) 0.2, Absolute Neuts (auto) 5.5, Absolute Lymphs (auto) 0.38 L, Total Counted Not Reportable 01/03/18 06:15: Sodium 138, Potassium 4.2, Chloride 98, Carbon Dioxide 31.0, Anion Gap 9, BUN 15, Creatinine 1.10, Estim Creat Clear Calc 86.22, Est GFR (MDRD) Af Amer 90, Est GFR (MDRD) Non-Af 75, BUN/Creatinine Ratio 13.6, Glucose 234 H, Calcium 8.5 01/03/18 06:15: Total Bilirubin 0.20, Direct Bilirubin 0.05, AST 27, ALT 34, Alkaline Phosphatase 74, Total Protein 8.1, Albumin 3.8, Globulin 4.3 H 01/03/18 06:52: POC Glucose 236 H 01/03/18 11:28: POC Glucose 293 H Current Medications Acetaminophen (Tylenol) 650 mg PO Q6H PRN PRN PRN Reason: Mild Pain (scale 0-3)/T>100.7 Albuterol Sulfate (Ventolin Aerosols) 2.5 mg INHALATION Q2H PRN PRN PRN Reason: Shortness of breath, wheezing Albuterol/Ipratropium (Duoneb) 3 ml INHALATION Q6H.RT [facility] Last Admin: 01/03/18 13:56 Dose: 3 ml Amlodipine Besylate (Norvasc) 10 mg PO DAILY [facility] Last Admin: 01/03/18 08:12 Dose: 10 mg Dextrose (D50w Syringe) 0 gm IV X1 PRN; Protocol PRN Reason: Hypoglycemia Diltiazem HCl (Cardizem Cd) 180 mg PO DAILY [facility] Last Admin: 01/03/18 08:12 Dose: 180 mg Enoxaparin Sodium (Lovenox) 40 mg SC DAILY@0600 [facility] Last Admin: 01/03/18 05:50 Dose: 40 mg Famotidine (Pepcid) 20 mg PO BID [facility] Last Admin: 01/03/18 08:12 Dose: 20 mg Folic Acid (Folic Acid) 1 mg PO DAILY@0800 [facility] Last Admin: 01/03/18 08:11 Dose: 1 mg Furosemide (Lasix) 40 mg IV Q8 [facility] Last Admin: 01/03/18 13:16 Dose: 40 mg Glucagon () 1 mg IM .X1 PRN PRN Reason: Hypoglycemia Guaifenesin (Mucinex) 1,200 mg PO BID [facility] Last Admin: 01/03/18 08:12 Dose: 1,200 mg Insulin Aspart (Novolog Flexpen (Bkc)) 0 units SC ACHS [facility]IVIANE PRN Reason: Protocol Last Admin: 01/03/18 11:30 Dose: 3 units Metoprolol Tartrate (Lopressor (Beta Yani)) 25 mg PO BID [facility] Last Admin: 01/03/18 08:12 Dose: 25 mg Ondansetron HCl (Zofran) 4 mg IV Q8H PRN PRN PRN Reason: Nausea Oxycodone HCl (Oxyir) 5 mg PO Q6H PRN PRN PRN Reason: Moderate Pain (pain scale 4-5) Last Admin: 01/03/18 10:21 Dose: 5 mg Pravastatin Sodium (Pravachol) 80 mg PO QHS [facility] Prednisone () 40 mg PO DAILY@0800 [facility] Last Admin: 01/03/18 08:11 Dose: 40 mg Sodium Chloride () 5 - 30 ml IV UD PRN PRN Reason: SALINE FLUSH Zolpidem Tartrate (Ambien (Generic)) 5 mg PO QHS PRN PRN PRN Reason: INSOMNIA Medical Necessity - Tobacco Use Smoking Status: Former smoker Assessment/Plan 1. Acute tonic respiratory failure with hypoxia; continue on supplemental oxygen. 2. acute on chronic diastolic CHF; place on IV Lasix. 3. Untreated obstructive sleep apnea; the patient is recommended to comply with use of BiPAP. 4. acute COPD with exacerbation; continue on bronchodilators and IV steroids. 5. Diabetes; will continue on regular insulin sliding scale. His metformin is on hold. 6. Obesity; weight loss is recommended. 7. Hypertension; the patient is on Cardizem and metoprolol, Norvasc has been discontinued due to pedal edema. 8. DVT prophylaxis with Lovenox. Code Visit Inpatient E&M: 95816 Subs Hosp L2
--- NOTE | 2018-01-03 16:33 | PN_ITS ---
Subjective: CC: Shortness of breath and leg edema Objective: He presented to the ED due to bilateral leg swelling and pain , he is found to have acute on chronic diastolic CHF. Vitals/I&O's: Vital Signs Temp Pulse Resp BP Pulse Ox 97.5 F L 94 12 144/77 H 95 01/03/18 14:10 01/03/18 15:00 01/03/18 14:10 01/03/18 14:10 01/03/18 14:10 Oxygen Flow Rate (L/min) 3 Oxygen Delivery Method Nasal Cannula Weight: 146.2 kg Body Mass Index (BMI) 43.7 Intake and Output for Last 24 Hours 01/01/18 01/02/18 01/03/18 23:59 23:59 23:59 Intake Total 460 / 460 Output Total 425 / 425 1999 Balance -425 / -425 -1540 / -1540 General: Alert, Oriented x3 HEENT: Atraumatic Oral: Moist Mucosa Neck: Supple, No JVD Lungs: Clear to auscultation Cardiovascular: Regular rate, Normal S1, Normal S2 Abdomen: Soft, Non Tender, Non-Distended Extremities: Edema Neurological: Cranial nerves II-XII grossly intact, Neuro grossly intact, Motor Exam 5/5 strength throughout Microbiology Past 72 Hours 01/02/18 23:55 Mucosa - Nasopharyngeal Respiratory Panel (PCR) - Final Laboratory Results 01/03/18 06:15: WBC 5.9, RBC 4.81, Hgb 15.3, Hct 46.1, MCV 95.8 H, MCH 31.8, MCHC 33.2, RDW 13.1, RDW Differential 44.9 H, Plt Count 234, MPV 9.4, Immature Gran % (Auto) 0.200, Neut % (Auto) 92.9 H, Lymph % (Auto) 6.4 L, [place] % (Auto) 0.3, Eos % (Auto) 0.0, Baso % (Auto) 0.2, Absolute Neuts (auto) 5.5, Absolute Lymphs (auto) 0.38 L, Total Counted Not Reportable 01/03/18 06:15: Sodium 138, Potassium 4.2, Chloride 98, Carbon Dioxide 31.0, Anion Gap 9, BUN 15, Creatinine 1.10, Estim Creat Clear Calc 86.22, Est GFR ( MDRD) Af Amer 90, Est GFR (MDRD) Non-Af 75, BUN/Creatinine Ratio 13.6, Glucose 234 H, Calcium 8.5 01/03/18 06:15: Total Bilirubin 0.20, Direct Bilirubin 0.05, AST 27, ALT 34, Alkaline Phosphatase 74, Total Protein 8.1, Albumin 3.8, Globulin 4.3 H 01/03/18 06:52: POC Glucose 236 H 01/03/18 11:28: POC Glucose 293 H Current Medications Acetaminophen (Tylenol) 650 mg PO Q6H PRN PRN PRN Reason: Mild Pain (scale 0-3)/T>100.7 Albuterol Sulfate (Ventolin Aerosols) 2.5 mg INHALATION Q2H PRN PRN PRN Reason: Shortness of breath, wheezing Albuterol/Ipratropium (Duoneb) 3 ml INHALATION Q6H.RT [facility] Last Admin: 01/03/18 13:56 Dose: 3 ml Amlodipine Besylate (Norvasc) 10 mg PO DAILY [facility] Last Admin: 01/03/18 08:12 Dose: 10 mg Dextrose (D50w Syringe) 0 gm IV X1 PRN; Protocol PRN Reason: Hypoglycemia Diltiazem HCl (Cardizem Cd) 180 mg PO DAILY [facility] Last Admin: 01/03/18 08:12 Dose: 180 mg Enoxaparin Sodium (Lovenox) 40 mg SC DAILY@0600 [facility] Last Admin: 01/03/18 05:50 Dose: 40 mg Famotidine (Pepcid) 20 mg PO BID [facility] Last Admin: 01/03/18 08:12 Dose: 20 mg Folic Acid (Folic Acid) 1 mg PO DAILY@0800 [facility] Last Admin: 01/03/18 08:11 Dose: 1 mg Furosemide (Lasix) 40 mg IV Q8 [facility] Last Admin: 01/03/18 13:16 Dose: 40 mg Glucagon () 1 mg IM .X1 PRN PRN Reason: Hypoglycemia Guaifenesin (Mucinex) 1,200 mg PO BID [facility] Last Admin: 01/03/18 08:12 Dose: 1,200 mg Insulin Aspart (Novolog Flexpen (Bkc)) 0 units SC ACHS [facility] PRN Reason: Protocol Last Admin: 01/03/18 11:30 Dose: 3 units Metoprolol Tartrate (Lopressor (Beta Yani)) 25 mg PO BID [facility] Last Admin: 01/03/18 08:12 Dose: 25 mg Ondansetron HCl (Zofran) 4 mg IV Q8H PRN PRN PRN Reason: Nausea Oxycodone HCl (Oxyir) 5 mg PO Q6H PRN PRN PRN Reason: Moderate Pain (pain scale 4-5) Last Admin: 01/03/18 10:21 Dose: 5 mg Pravastatin Sodium (Pravachol) 80 mg PO QHS [facility] Prednisone () 40 mg PO DAILY@0800 [facility] Last Admin: 01/03/18 08:11 Dose: 40 mg Sodium Chloride () 5 - 30 ml IV UD PRN PRN Reason: SALINE FLUSH Zolpidem Tartrate (Ambien (Generic)) 5 mg PO QHS PRN PRN PRN Reason: INSOMNIA Medical Necessity - Tobacco Use Smoking Status: Former smoker Assessment/Plan 1. Acute tonic respiratory failure with hypoxia; continue on supplemental oxygen. 2. acute on chronic diastolic CHF; place on IV Lasix. 3. Untreated obstructive sleep apnea; the patient is recommended to comply with use of BiPAP. 4. acute COPD with exacerbation; continue on bronchodilators and IV steroids. 5. Diabetes; will continue on regular insulin sliding scale. His metformin is on hold. 6. Obesity; weight loss is recommended. 7. Hypertension; the patient is on Cardizem and metoprolol, Norvasc has been discontinued due to pedal edema. 8. DVT prophylaxis with Lovenox. Code Visit Inpatient E&M: 18342 Subs Hosp L2
[2018-01-03 16:45] LABS: Bedside Glucose 235 mg/dL (70-110)
[2018-01-03 22:36] LABS: Bedside Glucose 187 mg/dL (70-110)
[2018-01-03] MEDS: Pravastatin 80 MG Tablet PO (22:44)
[2018-01-03] MEDS: 0.9% NaCl Peripheral Flush Adult/Peds IV (22:46)
[2018-01-04] VITALS (18 sets, daily range): BP systolic 116–161; BP diastolic 61–87; PULSE 65–85; RESP 15–20; TEMP 36.4–37; O2SAT 93–95
[2018-01-04] MEDS: Ipratropium/Albuterol Sulfate 3 ML AMPUL.NEB INHALATION ×3 (00:27→13:10)
[2018-01-04] MEDS: oxyCODONE 5 MG Tablet PO ×3 (04:32→22:05)
[2018-01-04] MEDS: Furosemide 40 MG/4 ML Vial IV ×3 (06:06→22:05)
[2018-01-04] MEDS: 0.9% NaCl Peripheral Flush Adult/Peds IV ×3 (06:06→22:05)
[2018-01-04] MEDS: Enoxaparin 40 MG/0.4 ML Syringe SC (06:06)
[2018-01-04 06:56] LABS: Bedside Glucose 133 mg/dL (70-110)
[2018-01-04 07:01] LABS: Absolute Lymphocyte Count 1.03 X10^3/ul (0.83-4.51); Absolute Neutrophil Count 9.9 X10^3/uL (2.0-7.7); Basophil# 0.02 X10^3/uL; Basophil% 0.2 % (0-1); Hematocrit 47.2 % (40-54); Hemoglobin 15.3 g/dl (13.0-16.5); Lymphocyte # 1.03 X10^3/ul (4.0); Lymphocyte % 8.8 % (19-41); Mean Corp Hgb Conc 32.4 g/gl (32-36); Mean Corpuscular Hgb 31.8 pg (27.0-32.0); Mean Corpuscular Volume 98.1 fL (80-94); Mean Platelet Vol. 9.2 fl (6.2-12.0); Monocyte# 0.69 X10^3/uL; Monocyte% 5.9 % (0-10); Neutrophil # 9.88 X10^3/uL (2.7-7.7); Neutrophil % 84.9 % (47-70); Platelet Count 250 K/mm3 (150-450); RBC Distribution Width CV 13.4 % (11.6-14.6); RBC Distribution Width SD 47.6 fl (35.1-43.9); Red Blood Count 4.81 M/mm3 (4.6-6.2); White Blood Count 11.6 K/mm3 (4.4-11.0)
[2018-01-04 07:04] LABS: POSITIVE COUNT NO; POSITIVE DIFFERENTIAL NO; POSITIVE MORPHOLOGY NO
[2018-01-04 07:16] LABS: BUN 22 mg/dL (7-18); BUN/Creat Ratio 20.8 RATIO (10-20); Calcium,Total 8.8 mg/dL (8.5-10.1); Chloride 97 mmol/L (98-107); Creatinine, Serum 1.06 mg/dL (0.70-1.30); EST Glomerular Filtration Rate 78 mL/min (>60); Est Glom Filt Rate - Afr Amer 94 mL/min (>60); Estimated Creatinine Clearance 89.48 ml/min; Glucose 144 mg/dL (74-106); Potassium 3.9 mmol/L (3.5-5.1); Sodium Level 140 mmol/L (136-145)
[2018-01-04 07:17] LABS: Anion Gap 6 (5-15)
[2018-01-04] MEDS: Folic Acid 1 MG Tablet PO (08:39)
[2018-01-04] MEDS: predniSONE 20 MG Tablet 40 MG PO (08:39)
[2018-01-04] MEDS: Metoprolol Tartrate 25 MG Tablet PO ×2 (09:41→22:04)
[2018-01-04] MEDS: guaiFENesin 1,200 MG Tablet 1200 MG PO ×2 (09:41→22:05)
[2018-01-04] MEDS: amLODIPine 10 MG Tablet PO (09:41)
[2018-01-04] MEDS: dilTIAZem CD 180 MG Capsule PO (09:41)
[2018-01-04] MEDS: Famotidine 20 MG Tablet PO ×2 (09:41→22:05)
--- NOTE | 2018-01-04 10:08 | PN_ITS ---
Subjective: Patient did well overnight. Patient reports little subjective improvement in overall condition. Patient not coughing much, but was able to provide a sputum sample. Patient continues to have lower extremity pain and feels this is pretty consistent with previous symptoms. Objective: Echocardiogram was personally reviewed. This shows relatively normal RSVP of 27 mmHg, but does have right ventricular dilation and left atrial dilation. - Physical Exam General: Alert, Oriented x3, Cooperative, No apparent distress HEENT: Atraumatic, PERRLA, EOMI, Normocephalic, - - No scleral icterus or injection noted. Oral: Moist Mucosa, No Gingival or Mucosal Lesions/ Ulcerations Neck: Supple, No Nodes, Trachea Midline, JVD, Right Lungs: No rhonchi, No wheeze, No rales, Diminished, - - Metric expansion. No dullness to percussion. Cardiovascular: Regular rate, Regular Rhythm, Normal S1, Normal S2, No murmurs, No rub noted, No Gallop Abdomen: Bowel Sounds Present, Soft, Non Tender, Non-Distended, Obese Extremities: No clubbing, No cyanosis, Capillary Refill Less than 3 Seconds, Edema - Grossly unchanged compared to previous Skin: - - Grossly unchanged compared to previous. Still with venous stasis changes Musculoskeletal: No Tenderness to Palpation of Joints or Extremities Lymphatic: No Cervical, Supraclavicular, or Inguinal Adenopathy Neurological: Cranial nerves II-XII grossly intact, Neuro grossly intact Psych/Mental Status: Alert and oriented to time, place, person, mood and affect Vital Signs Temp Pulse Resp BP Pulse Ox 36.7 C 83 18 149/87 H 94 01/04/18 09:40 01/04/18 09:41 01/04/18 09:40 01/04/18 09:40 01/04/18 09:40 Oxygen Flow Rate (L/min) 2 Oxygen Delivery Method Nasal Cannula Weight: 146.2 kg Body Mass Index (BMI) 43.7 Intake and Output for Last 24 Hours 01/02/18 01/03/18 01/04/18 23:59 23:59 23:59 Intake Total 810 / 810 560 / 560 Output Total 425 / 425 2350 / 2350 2275 / 2275 Balance -425 / -425 -1540 / -1540 -1715 / -1715 Microbiology Past 72 Hours 01/03/18 19:15 Gram Stain - Final Sputum, Expectorated/Coughed 01/02/18 23:55 Respiratory Panel (PCR) - Final Mucosa - Nasopharyngeal Laboratory Tests Past 24 Hrs 01/04/18 01/04/18 06:45 06:45 WBC 11.6 H RBC 4.81 Hgb 15.3 Hct 47.2 MCV 98.1 H MCH 31.8 MCHC 32.4 RDW 13.4 RDW Differential 47.6 H Plt Count 250 MPV 9.2 Immature Gran % (Auto) 0.200 Neut % (Auto) 84.9 H Lymph % (Auto) 8.8 L [place] % (Auto) 5.9 Eos % (Auto) 0.0 Baso % (Auto) 0.2 Absolute Neuts (auto) 9.9 H Absolute Lymphs (auto) 1.03 Total Counted Not Reportable Sodium 140 Potassium 3.9 Chloride 97 L Carbon Dioxide 37.0 H Anion Gap 6 BUN 22 H Creatinine 1.06 Estim Creat Clear Calc 89.48 Est GFR (MDRD) Af Amer 94 Est GFR (MDRD) Non-Af 78 BUN/Creatinine Ratio 20.8 H Glucose 144 H Calcium 8.8 POC Glucose 01/04/18 01/03/18 01/03/18 06:52 22:32 16:41 POC Glucose 133 H 187 H 235 H 01/03/18 11:28 POC Glucose 293 H Medical Necessity - Tobacco Use Smoking Status: Former smoker Assessment/Plan RECOMMENDATIONS: 1. Continue diuresis 2. Discontinue prednisone, initiate Pulmicort 3. Consider discontinuation of Norvasc 4. Wean oxygen as tolerated 5. Walking oximetry prior to discharge IMPRESSIONS: 1. Acute hypoxic respiratory insufficiency Since lower extremity edema is grossly unchanged despite appropriate diuresis over the last 24 hours. Would consider discontinuation of Norvasc therapy as this has been implicated in lower extremity may have previously. Will discontinue steroid therapy as patient is not acting like a COPD exacerbation and this is leading to elevated glucose levels. Wean oxygen as tolerated. Continue to monitor renal function on a daily basis. Echocardiogram did not show elevated pulmonary artery pressures, but did have RV and left atrial dilation. Patient may benefit from a right heart catheterization as an outpatient 2. Uncontrolled obstructive sleep apnea Patient readily admits he is not compliant with BiPAP therapy. Stressed to the patient that this can lead to retention with minimal salt intake. Patient also has multiple comorbidities such as hypertension and possible diastolic congestive heart failure, which would be exacerbated by uncontrolled sleep apnea. Patient appears to be pre-contemplative at this time. 3. Regular alcohol and tobacco use Patient does drink alcohol on a consistent basis. No signs or symptoms of withdrawal at this time. Liver function tests are within normal limits. Does not have any physical stigmata such as telangiectasias or varices to suggest obvious cirrhosis. Patient encouraged to discontinue alcohol and tobacco use. 4. Hypertension/diabetes type 2/hyperlipidemia/morbid obesity Complicates care, management, recovery and prognosis. Systemic steroids were discontinued given elevated blood sugars and low suspicion for COPD exacerbation. These can likely be discontinued. Patient may benefit from transition from Norvasc to another antihypertensive given lower extremity edema. Code Visit Inpatient E&M: 67732 Subs Hosp L3
[2018-01-04 11:15] LABS: Bedside Glucose 257 mg/dL (70-110)
[2018-01-04] MEDS: Budesonide Respules 0.5 MG/2 ML AMPUL.NEB. INHALATION (13:10)
[2018-01-04 16:16] LABS: Bedside Glucose 225 mg/dL (70-110)
--- NOTE | 2018-01-04 17:01 | PCM.PN.HOSP ---
Subjective: CC: shortness of breath Objective: He presented to the ED due to bilateral leg swelling and pain , he is found to have acute on chronic diastolic CHF. He reports improvement in his breathing and leg edema after Lasix. No acute events reported overnight. Vitals/I&O's: Vital Signs Temp Pulse Resp BP Pulse Ox 98.0 F 68 18 116/61 93 01/04/18 15:33 01/04/18 15:33 01/04/18 15:33 01/04/18 15:33 01/04/18 15:33 Oxygen Flow Rate (L/min) 2 Oxygen Delivery Method Room Air Weight: 146.2 kg Body Mass Index (BMI) 43.7 Intake and Output for Last 24 Hours 01/02/18 01/03/18 01/04/18 23:59 23:59 23:59 Intake Total 810 / 810 920 / 920 Output Total 425 / 425 2350 / 2350 3050 / 3050 Balance -425 / -425 -1540 / -1540 -2130 / -2130 General: Alert, Oriented x3 Oral: Moist Mucosa Neck: Supple, No JVD Lungs: Clear to auscultation Cardiovascular: Regular rate, Normal S1, Normal S2, No Ectopic Activity Abdomen: Bowel Sounds Present, Soft, Non Tender Extremities: No edema Microbiology Past 72 Hours 01/03/18 19:15 Sputum, Expectorated/Coughed Gram Stain - Final 01/02/18 23:55 Mucosa - Nasopharyngeal Respiratory Panel (PCR) - Final Laboratory Results 01/03/18 22:32: POC Glucose 187 H 01/04/18 06:45: WBC 11.6 H, RBC 4.81, Hgb 15.3, Hct 47.2, MCV 98.1 H, MCH 31.8, MCHC 32.4, RDW 13.4, RDW Differential 47.6 H, Plt Count 250, MPV 9.2, Immature Gran % (Auto) 0.200, Neut % (Auto) 84.9 H, Lymph % (Auto) 8.8 L, [place] % (Auto) 5.9, Eos % (Auto) 0.0, Baso % (Auto) 0.2, Absolute Neuts (auto) 9.9 H, Absolute Lymphs (auto) 1.03, Total Counted Not Reportable 01/04/18 06:45: Sodium 140, Potassium 3.9, Chloride 97 L, Carbon Dioxide 37.0 H, Anion Gap 6, BUN 22 H, Creatinine 1.06, Estim Creat Clear Calc 89.48, Est GFR (MDRD) Af Amer 94, Est GFR (MDRD) Non-Af 78, BUN/Creatinine Ratio 20.8 H, Glucose 144 H, Calcium 8.8 01/04/18 06:52: POC Glucose 133 H 01/04/18 11:08: POC Glucose 257 H 01/04/18 16:06: POC Glucose 225 H Current Medications Acetaminophen (Tylenol) 650 mg PO Q6H PRN PRN PRN Reason: Mild Pain (scale 0-3)/T>100.7 Albuterol Sulfate (Ventolin Aerosols) 2.5 mg INHALATION Q2H PRN PRN PRN Reason: Shortness of breath, wheezing Albuterol/Ipratropium (Duoneb) 3 ml INHALATION Q6H.RT [facility] Last Admin: 01/04/18 13:10 Dose: 3 ml Budesonide (Pulmicort Aerosol) 0.5 mg INHALATION BID.RT [facility] Last Admin: 01/04/18 13:10 Dose: 0.5 mg Dextrose (D50w Syringe) 0 gm IV X1 PRN; Protocol PRN Reason: Hypoglycemia Diltiazem HCl (Cardizem Cd) 180 mg PO DAILY [facility] Last Admin: 01/04/18 09:41 Dose: 180 mg Enoxaparin Sodium (Lovenox) 40 mg SC DAILY@0600 [facility] Last Admin: 01/04/18 06:06 Dose: 40 mg Famotidine (Pepcid) 20 mg PO BID [facility] Last Admin: 01/04/18 09:41 Dose: 20 mg Folic Acid (Folic Acid) 1 mg PO DAILY@0800 [facility] Last Admin: 01/04/18 08:39 Dose: 1 mg Furosemide (Lasix) 40 mg IV Q8 [facility] Last Admin: 01/04/18 13:46 Dose: 40 mg Glucagon () 1 mg IM .X1 PRN PRN Reason: Hypoglycemia Guaifenesin (Mucinex) 1,200 mg PO BID [facility] Last Admin: 01/04/18 09:41 Dose: 1,200 mg Insulin Aspart (Novolog Flexpen (Bkc)) 0 units SC ACHS [facility] PRN Reason: Protocol Last Admin: 01/04/18 12:29 Dose: 2 units Metoprolol Tartrate (Lopressor (Beta Yani)) 25 mg PO BID [facility] Last Admin: 01/04/18 09:41 Dose: 25 mg Ondansetron HCl (Zofran) 4 mg IV Q8H PRN PRN PRN Reason: Nausea Oxycodone HCl (Oxyir) 5 mg PO Q6H PRN PRN PRN Reason: Moderate Pain (pain scale 4-5) Last Admin: 01/04/18 11:09 Dose: 5 mg Pravastatin Sodium (Pravachol) 80 mg PO QHS [facility] Last Admin: 01/03/18 22:44 Dose: 80 mg Sodium Chloride () 5 - 30 ml IV UD PRN PRN Reason: SALINE FLUSH Last Admin: 01/04/18 13:46 Dose: 10 ml Zolpidem Tartrate (Ambien (Generic)) 5 mg PO QHS PRN PRN PRN Reason: INSOMNIA Medical Necessity - Tobacco Use Smoking Status: Former smoker Assessment/Plan 1. Acute respiratory failure with hypoxia; we will continue on supplemental oxygen. 2. acute on chronic diastolic CHF; continue on IV Lasix. 3. Untreated obstructive sleep apnea; the patient is recommended to comply with use of BiPAP. 4. acute COPD with exacerbation; continue on bronchodilators and IV steroids. 5. Diabetes; will continue on regular insulin sliding scale. His metformin is on hold. 6. Obesity; weight loss is recommended. 7. Hypertension; the patient is on Cardizem and metoprolol, Norvasc has been discontinued due to pedal edema. 8. DVT prophylaxis with Lovenox. Code Visit Inpatient E&M: 05672 [facility] Hosp L2
--- NOTE | 2018-01-04 17:04 | PN_ITS ---
Subjective: CC: shortness of breath Objective: He presented to the ED due to bilateral leg swelling and pain , he is found to have acute on chronic diastolic CHF. He reports improvement in his breathing and leg edema after Lasix. No acute events reported overnight. Vitals/I&O's: Vital Signs Temp Pulse Resp BP Pulse Ox 98.0 F 68 18 116/61 93 01/04/18 15:33 01/04/18 15:33 01/04/18 15:33 01/04/18 15:33 01/04/18 15:33 Oxygen Flow Rate (L/min) 2 Oxygen Delivery Method Room Air Weight: 146.2 kg Body Mass Index (BMI) 43.7 Intake and Output for Last 24 Hours 01/02/18 01/03/18 01/04/18 23:59 23:59 23:59 Intake Total 810 / 810 920 / 920 Output Total 425 / 425 2350 / 2350 3050 / 3050 Balance -425 / -425 -1540 / -1540 -2130 / -2130 General: Alert, Oriented x3 Oral: Moist Mucosa Neck: Supple, No JVD Lungs: Clear to auscultation Cardiovascular: Regular rate, Normal S1, Normal S2, No Ectopic Activity Abdomen: Bowel Sounds Present, Soft, Non Tender Extremities: No edema Microbiology Past 72 Hours 01/03/18 19:15 Sputum, Expectorated/Coughed Gram Stain - Final 01/02/18 23:55 Mucosa - Nasopharyngeal Respiratory Panel (PCR) - Final Laboratory Results 01/03/18 22:32: POC Glucose 187 H 01/04/18 06:45: WBC 11.6 H, RBC 4.81, Hgb 15.3, Hct 47.2, MCV 98.1 H, MCH 31.8, MCHC 32.4, RDW 13.4, RDW Differential 47.6 H, Plt Count 250, MPV 9.2, Immature Gran % (Auto) 0.200, Neut % (Auto) 84.9 H, Lymph % (Auto) 8.8 L, [place] % (Auto) 5.9, Eos % (Auto) 0.0, Baso % (Auto) 0.2, Absolute Neuts (auto) 9.9 H, Absolute Lymphs (auto) 1.03, Total Counted Not Reportable 01/04/18 06:45: Sodium 140, Potassium 3.9, Chloride 97 L, Carbon Dioxide 37.0 H , Anion Gap 6, BUN 22 H, Creatinine 1.06, Estim Creat Clear Calc 89.48, Est GFR (MDRD) Af Amer 94, Est GFR (MDRD) Non-Af 78, BUN/Creatinine Ratio 20.8 H, Glucose 144 H, Calcium 8.8 01/04/18 06:52: POC Glucose 133 H 01/04/18 11:08: POC Glucose 257 H 01/04/18 16:06: POC Glucose 225 H Current Medications Acetaminophen (Tylenol) 650 mg PO Q6H PRN PRN PRN Reason: Mild Pain (scale 0-3)/T>100.7 Albuterol Sulfate (Ventolin Aerosols) 2.5 mg INHALATION Q2H PRN PRN PRN Reason: Shortness of breath, wheezing Albuterol/Ipratropium (Duoneb) 3 ml INHALATION Q6H.RT [facility] Last Admin: 01/04/18 13:10 Dose: 3 ml Budesonide (Pulmicort Aerosol) 0.5 mg INHALATION BID.RT [facility] Last Admin: 01/04/18 13:10 Dose: 0.5 mg Dextrose (D50w Syringe) 0 gm IV X1 PRN; Protocol PRN Reason: Hypoglycemia Diltiazem HCl (Cardizem Cd) 180 mg PO DAILY [facility] Last Admin: 01/04/18 09:41 Dose: 180 mg Enoxaparin Sodium (Lovenox) 40 mg SC DAILY@0600 [facility] Last Admin: 01/04/18 06:06 Dose: 40 mg Famotidine (Pepcid) 20 mg PO BID [facility] Last Admin: 01/04/18 09:41 Dose: 20 mg Folic Acid (Folic Acid) 1 mg PO DAILY@0800 [facility] Last Admin: 01/04/18 08:39 Dose: 1 mg Furosemide (Lasix) 40 mg IV Q8 [facility] Last Admin: 01/04/18 13:46 Dose: 40 mg Glucagon () 1 mg IM .X1 PRN PRN Reason: Hypoglycemia Guaifenesin (Mucinex) 1,200 mg PO BID [facility] Last Admin: 01/04/18 09:41 Dose: 1,200 mg Insulin Aspart (Novolog Flexpen (Bkc)) 0 units SC ACHS [facility] PRN Reason: Protocol Last Admin: 01/04/18 12:29 Dose: 2 units Metoprolol Tartrate (Lopressor (Beta Yani)) 25 mg PO BID [facility] Last Admin: 01/04/18 09:41 Dose: 25 mg Ondansetron HCl (Zofran) 4 mg IV Q8H PRN PRN PRN Reason: Nausea Oxycodone HCl (Oxyir) 5 mg PO Q6H PRN PRN PRN Reason: Moderate Pain (pain scale 4-5) Last Admin: 01/04/18 11:09 Dose: 5 mg Pravastatin Sodium (Pravachol) 80 mg PO QHS [facility] Last Admin: 01/03/18 22:44 Dose: 80 mg Sodium Chloride () 5 - 30 ml IV UD PRN PRN Reason: SALINE FLUSH Last Admin: 01/04/18 13:46 Dose: 10 ml Zolpidem Tartrate (Ambien (Generic)) 5 mg PO QHS PRN PRN PRN Reason: INSOMNIA Medical Necessity - Tobacco Use Smoking Status: Former smoker Assessment/Plan 1. Acute respiratory failure with hypoxia; we will continue on supplemental oxygen. 2. acute on chronic diastolic CHF; continue on IV Lasix. 3. Untreated obstructive sleep apnea; the patient is recommended to comply with use of BiPAP. 4. acute COPD with exacerbation; continue on bronchodilators and IV steroids. 5. Diabetes; will continue on regular insulin sliding scale. His metformin is on hold. 6. Obesity; weight loss is recommended. 7. Hypertension; the patient is on Cardizem and metoprolol, Norvasc has been discontinued due to pedal edema. 8. DVT prophylaxis with Lovenox. Code Visit Inpatient E&M: 65242 [facility] Hosp L2
[2018-01-04] MEDS: Pravastatin 80 MG Tablet PO (22:05)
[2018-01-04 22:55] LABS: Bedside Glucose 108 mg/dL (70-110)
[2018-01-05] VITALS (16 sets, daily range): BP systolic 133–154; BP diastolic 80–96; PULSE 62–84; RESP 16–20; TEMP 36.6–36.8; O2SAT 92–96
[2018-01-05] MEDS: 0.9% NaCl Peripheral Flush Adult/Peds IV ×3 (05:43→22:19)
[2018-01-05] MEDS: Enoxaparin 40 MG/0.4 ML Syringe SC (05:43)
[2018-01-05] MEDS: Furosemide 40 MG/4 ML Vial IV ×3 (05:44→22:16)
[2018-01-05 06:58] LABS: Anion Gap 9 (5-15); BUN 24 mg/dL (7-18); BUN/Creat Ratio 25.5 RATIO (10-20); Calcium,Total 8.6 mg/dL (8.5-10.1); Chloride 98 mmol/L (98-107); Creatinine, Serum 0.94 mg/dL (0.70-1.30); EST Glomerular Filtration Rate 89 mL/min (>60); Est Glom Filt Rate - Afr Amer 108 mL/min (>60); Glucose 121 mg/dL (74-106); Potassium 3.4 mmol/L (3.5-5.1); Sodium Level 142 mmol/L (136-145)
[2018-01-05 07:01] LABS: Bedside Glucose 130 mg/dL (70-110)
--- NOTE | 2018-01-05 08:03 | PCM.PROGNOTE ---
Subjective: Patient did well overnight. Patient reports subjective improvement in dyspnea today compared to yesterday. Patient still having some pain and tension in his legs, but feels this is somewhat improved compared to yesterday. Patient denies any chest pain at this time. No significant cough is been reported. - Physical Exam General: Alert, Oriented x3, Cooperative, No apparent distress, Well developed, Well nourished, - - Speaking in full sentences. Morbidly obese. HEENT: Atraumatic, PERRLA, EOMI, Normocephalic, - - No scleral icterus or injection noted. Oral: Moist Mucosa, No Gingival or Mucosal Lesions/ Ulcerations Neck: Supple, No JVD, No Nodes, Trachea Midline Lungs: No rhonchi, No wheeze, No rales, Diminished, - - Symmetric expansion. No dullness to percussion. Cardiovascular: Regular rate, Regular Rhythm, Normal S1, Normal S2, No murmurs, No rub noted, No Gallop Abdomen: Bowel Sounds Present, Soft, Non Tender, Non-Distended, Obese Extremities: No clubbing, No cyanosis, Edema, - - Still with decreased sensation and tenderness with palpation of the lower extremities. Skin: - - No significant change compared to previous. Still with tense edema and venous stasis changes of the lower extremities. Musculoskeletal: No Muscle Wasting Lymphatic: No Cervical, Supraclavicular, or Inguinal Adenopathy Neurological: Cranial nerves II-XII grossly intact, Neuro grossly intact, Motor Exam 5/5 strength throughout Psych/Mental Status: Alert and oriented to time, place, person, mood and affect Vital Signs Temp Pulse Resp BP Pulse Ox 36.6 C 66 17 154/96 H 92 01/05/18 03:45 01/05/18 07:39 01/05/18 03:45 01/05/18 03:45 01/05/18 07:45 Oxygen Flow Rate (L/min) 2 Oxygen Delivery Method Room Air Weight: 146.2 kg Body Mass Index (BMI) 43.7 Intake and Output for Last 24 Hours 01/03/18 01/04/18 01/05/18 23:59 23:59 23:59 Intake Total 810 / 810 1320 / 1320 520 / 520 Output Total 2350 / 2350 4450 / 4450 2450 / 2450 Balance -1540 / -1540 -3130 / -3130 -1930 / -1930 Microbiology Past 72 Hours 01/03/18 19:15 Gram Stain - Final Sputum, Expectorated/Coughed 01/02/18 23:55 Respiratory Panel (PCR) - Final Mucosa - Nasopharyngeal Laboratory Tests Past 24 Hrs 01/05/18 06:20 Sodium 142 Potassium 3.4 L Chloride 98 Carbon Dioxide 35.0 H Anion Gap 9 BUN 24 H Creatinine 0.94 Estim Creat Clear Calc 100.90 Est GFR (MDRD) Af Amer 108 Est GFR (MDRD) Non-Af 89 BUN/Creatinine Ratio 25.5 H Glucose 121 H Calcium 8.6 POC Glucose 01/05/18 01/04/18 01/04/18 06:54 21:58 16:06 POC Glucose 130 H 108 225 H 01/04/18 11:08 POC Glucose 257 H Medical Necessity - Tobacco Use Smoking Status: Former smoker Assessment/Plan RECOMMENDATIONS: 1. Continue aggressive diuresis 2. Continue Pulmicort, likely okay to make DuoNeb's as needed 3. Consider initiation of another antihypertensive 4. Wean oxygen as tolerated 5. Walking oximetry prior to discharge IMPRESSIONS: 1. Acute hypoxic respiratory insufficiency Patient's oxygenation status has greatly improved with 3 L of diuresis over the last 24 hours. Clinical suspicion for acute on chronic diastolic congestive heart failure, but poor echo windows make diagnosis with echocardiogram difficult. Patient should continue with diuretic therapy. Potassium will be supplemented for hypokalemia. Patient should have a walking oximetry prior to discharge. Likely okay to discharge if able to tolerate ambulation with no significant desaturations. Anticipate discharge in the next 24 hours. 2. Uncontrolled obstructive sleep apnea Patient readily admits he is not compliant with BiPAP therapy. Stressed to the patient that this can lead to retention with minimal salt intake. Patient also has multiple comorbidities such as hypertension and possible diastolic congestive heart failure, which would be exacerbated by uncontrolled sleep apnea. Patient appears to be pre-contemplative at this time. 3. Regular alcohol and tobacco use Patient does drink alcohol on a consistent basis. No signs or symptoms of withdrawal at this time. Liver function tests are within normal limits. Does not have any physical stigmata such as telangiectasias or varices to suggest obvious cirrhosis. Patient encouraged to discontinue alcohol and tobacco use. 4. Hypertension/diabetes type 2/hyperlipidemia/morbid obesity Complicates care, management, recovery and prognosis. Tolerating discontinuation of steroids well. Patient's blood pressure has trended up after discontinuation of Norvasc. Would likely benefit from additional antihypertensive medications, but would defer to hospitalist. Code Visit Inpatient E&M: 37751 Subs Hosp L2
[2018-01-05] MEDS: dilTIAZem CD 180 MG Capsule PO (08:21)
[2018-01-05] MEDS: Folic Acid 1 MG Tablet PO (08:21)
[2018-01-05] MEDS: Metoprolol Tartrate 25 MG Tablet PO ×2 (08:21→22:17)
[2018-01-05] MEDS: Famotidine 20 MG Tablet PO ×2 (08:22→22:16)
[2018-01-05] MEDS: guaiFENesin 1,200 MG Tablet 1200 MG PO ×2 (08:22→22:16)
[2018-01-05 10:56] LABS: Bedside Glucose 160 mg/dL (70-110)
[2018-01-05] MEDS: oxyCODONE 5 MG Tablet PO ×3 (11:35→23:07)
--- NOTE | 2018-01-05 12:11 | PCM.PN.HOSP ---
Subjective: CC: Pedal Edema, shortness of breath Objective: Interval history; He is a 52 year old M presented with a week history of bilateral leg pain and swelling as well as progressive dyspnea. On Arrival to the emergency room the patient was noted to have significant hypoxia in the 80s. He has acute diastolic heart failure, untreated obstructive sleep apnea and acute COPD exacerbation with bronchitis. He is improving with bronchodilator therapy, IV steroids and IV Lasix. He reports no new complaints today. Vitals/I&O's: Vital Signs Temp Pulse Resp BP Pulse Ox 98.3 F 73 16 150/86 H 94 01/05/18 08:25 01/05/18 08:29 01/05/18 08:29 01/05/18 08:25 01/05/18 08:29 Oxygen Flow Rate (L/min) 2 Oxygen Delivery Method Room Air Weight: 141.3 kg Body Mass Index (BMI) 43.7 Intake and Output for Last 24 Hours 01/03/18 01/04/18 01/05/18 23:59 23:59 23:59 Intake Total 810 / 810 1320 / 1320 520 / 520 Output Total 2350 / 2350 4450 / 4450 2450 / 2450 Balance -1540 / -1540 -3130 / -3130 -1930 / -1930 General: Alert, Oriented x3 HEENT: Atraumatic Oral: Moist Mucosa Neck: Supple, No JVD Lungs: Rales Cardiovascular: Regular rate, Normal S1, Normal S2 Abdomen: Bowel Sounds Present, Soft, Non Tender Extremities: Edema Neurological: Cranial nerves II-XII grossly intact, Neuro grossly intact, Motor Exam 5/5 strength throughout Microbiology Past 72 Hours 01/03/18 19:15 Sputum, Expectorated/Coughed Gram Stain - Final 01/03/18 19:15 Sputum, Expectorated/Coughed Respiratory Culture - Preliminary Staphylococcus species 01/02/18 23:55 Mucosa - Nasopharyngeal Respiratory Panel (PCR) - Final Laboratory Results 01/04/18 16:06: POC Glucose 225 H 01/04/18 21:58: POC Glucose 108 01/05/18 06:20: Sodium 142, Potassium 3.4 L, Chloride 98, Carbon Dioxide 35.0 H, Anion Gap 9, BUN 24 H, Creatinine 0.94, Estim Creat Clear Calc 100.90, Est GFR (MDRD) Af Amer 108, Est GFR (MDRD) Non-Af 89, BUN/Creatinine Ratio 25.5 H, Glucose 121 H, Calcium 8.6 01/05/18 06:54: POC Glucose 130 H 01/05/18 10:46: POC Glucose 160 H Current Medications Acetaminophen (Tylenol) 650 mg PO Q6H PRN PRN PRN Reason: Mild Pain (scale 0-3)/T>100.7 Albuterol Sulfate (Ventolin Aerosols) 2.5 mg INHALATION Q2H PRN PRN PRN Reason: Shortness of breath, wheezing Dextrose (D50w Syringe) 0 gm IV X1 PRN; Protocol PRN Reason: Hypoglycemia Diltiazem HCl (Cardizem Cd) 180 mg PO DAILY [facility] Last Admin: 01/05/18 08:21 Dose: 180 mg Doxycycline Monohydrate (Doxycycline) 100 mg PO BID [facility] Enoxaparin Sodium (Lovenox) 40 mg SC DAILY@0600 [facility] Last Admin: 01/05/18 05:43 Dose: 40 mg Famotidine (Pepcid) 20 mg PO BID [facility] Last Admin: 01/05/18 08:22 Dose: 20 mg Folic Acid (Folic Acid) 1 mg PO DAILY@0800 [facility] Last Admin: 01/05/18 08:21 Dose: 1 mg Furosemide (Lasix) 40 mg IV Q8 [facility] Last Admin: 01/05/18 05:44 Dose: 40 mg Glucagon () 1 mg IM .X1 PRN PRN Reason: Hypoglycemia Guaifenesin (Mucinex) 1,200 mg PO BID [facility] Last Admin: 01/05/18 08:22 Dose: 1,200 mg Insulin Aspart (Novolog Flexpen (Bkc)) 0 units SC ACHS [facility] PRN Reason: Protocol Last Admin: 01/05/18 08:18 Dose: Not Given Metoprolol Tartrate (Lopressor (Beta Yani)) 25 mg PO BID [facility] Last Admin: 01/05/18 08:21 Dose: 25 mg Ondansetron HCl (Zofran) 4 mg IV Q8H PRN PRN PRN Reason: Nausea Oxycodone HCl (Oxyir) 5 mg PO Q6H PRN PRN PRN Reason: Moderate Pain (pain scale 4-5) Last Admin: 01/04/18 22:05 Dose: 5 mg Potassium [facility] ([facility] Stop: 01/05/18 17:01 Last Admin: 01/05/18 08:20 Dose: 40 meq Pravastatin Sodium (Pravachol) 80 mg PO QHS [facility] Last Admin: 01/04/18 22:05 Dose: 80 mg Sodium Chloride () 5 - 30 ml IV UD PRN PRN Reason: SALINE FLUSH Last Admin: 01/05/18 05:43 Dose: 10 ml Zolpidem Tartrate (Ambien (Generic)) 5 mg PO QHS PRN PRN PRN Reason: INSOMNIA Medical Necessity - Tobacco Use Smoking Status: Former smoker Assessment/Plan 1. Acute respiratory failure with hypoxia; we will continue on supplemental oxygen and wean as tolerated. 2. acute on chronic diastolic CHF; continue on IV Lasix for another 24 hours, he could be changed to oral Lasix tomorrow. 3. Untreated obstructive sleep apnea; the patient is recommended to comply with use of BiPAP. 4. acute [employer] exacerbation rhonchi to his; continue on bronchodilators and IV steroids. sputum culture grew staph, he is on p.o. Doxycycline 5. Diabetes; will continue on regular insulin sliding scale. His metformin is on hold. 6. Obesity; weight loss is recommended. 7. Hypertension; the patient is on Cardizem and metoprolol, Norvasc has been discontinued due to pedal edema. 8. DVT prophylaxis with Lovenox. Code Visit Inpatient E&M: 19723 Subs Hosp L2
[2018-01-05 17:01] LABS: Bedside Glucose 135 mg/dL (70-110)
[2018-01-05] MEDS: Doxycycline 100 MG CAPSULE PO (22:16)
[2018-01-05] MEDS: Pravastatin 80 MG Tablet PO (22:17)
[2018-01-05 22:41] LABS: Bedside Glucose 136 mg/dL (70-110)
[2018-01-05] MEDS: Zolpidem Tartrate 5 MG Tablet PO (23:09)
[2018-01-06] VITALS (8 sets, daily range): BP systolic 147–157; BP diastolic 76–93; PULSE 59–78; RESP 16–20; TEMP 36.4–36.9; O2SAT 95–97
[2018-01-06] MEDS: Furosemide 40 MG/4 ML Vial IV (05:05)
[2018-01-06] MEDS: Enoxaparin 40 MG/0.4 ML Syringe SC (05:05)
[2018-01-06] MEDS: 0.9% NaCl Peripheral Flush Adult/Peds IV (05:05)
[2018-01-06 07:06] LABS: Bedside Glucose 170 mg/dL (70-110)
[2018-01-06 07:57] LABS: Anion Gap 7 (5-15); BUN 25 mg/dL (7-18); BUN/Creat Ratio 21.6 RATIO (10-20); Calcium,Total 8.6 mg/dL (8.5-10.1); Chloride 98 mmol/L (98-107); Creatinine, Serum 1.16 mg/dL (0.70-1.30); EST Glomerular Filtration Rate 70 mL/min (>60); Est Glom Filt Rate - Afr Amer 85 mL/min (>60); Estimated Creatinine Clearance 81.76 ml/min; Glucose 134 mg/dL (74-106); Potassium 3.8 mmol/L (3.5-5.1); Sodium Level 139 mmol/L (136-145)
[2018-01-06] MEDS: dilTIAZem CD 180 MG Capsule PO (08:26)
[2018-01-06] MEDS: Folic Acid 1 MG Tablet PO (08:26)
[2018-01-06] MEDS: Doxycycline 100 MG CAPSULE PO (08:26)
[2018-01-06] MEDS: guaiFENesin 1,200 MG Tablet 1200 MG PO (08:27)
[2018-01-06] MEDS: Metoprolol Tartrate 25 MG Tablet PO (08:27)
[2018-01-06] MEDS: Famotidine 20 MG Tablet PO (08:27)
--- NOTE | 2018-01-06 08:29 | PCM.PROGNOTE ---
Subjective: Patient did well overnight. Patient denies any complications at this time. Patient reports that he feels subjectively back to his baseline. Patient still having lower extremity pain and calf tightness. - Physical Exam General: Alert, Oriented x3, Cooperative, No apparent distress, - - Morbidly obese. Speaking in full sentences. HEENT: Atraumatic, PERRLA, EOMI, Normocephalic, - - No scleral icterus or injection noted. Oral: No Gingival or Mucosal Lesions/ Ulcerations, Dry Mucosa Neck: Supple, No Nodes, Trachea Midline, JVD, Right Lungs: No rhonchi, No wheeze, No rales, Diminished, - - No dullness to percussion. Symmetric expansion. Cardiovascular: Regular rate, Regular Rhythm, Normal S1, Normal S2, No murmurs, No rub noted, No Gallop Abdomen: Bowel Sounds Present, Soft, Non Tender, Non-Distended, Obese Extremities: No clubbing, No cyanosis, Edema Skin: - - Venous stasis changes bilateral lower extremities Musculoskeletal: No Tenderness to Palpation of Joints or Extremities, No Muscle Wasting Lymphatic: No Cervical, Supraclavicular, or Inguinal Adenopathy Neurological: Cranial nerves II-XII grossly intact, Neuro grossly intact, Motor Exam 5/5 strength throughout Psych/Mental Status: Alert and oriented to time, place, person, mood and affect Vital Signs Temp Pulse Resp BP Pulse Ox 36.4 C L 74 20 H 156/93 H 96 01/06/18 08:25 01/06/18 08:25 01/06/18 08:25 01/06/18 08:25 01/06/18 08:25 Oxygen Flow Rate (L/min) 2 Oxygen Delivery Method Room Air Weight: 140 kg Body Mass Index (BMI) 43.7 Intake and Output for Last 24 Hours 01/04/18 01/05/18 01/06/18 23:59 23:59 23:59 Intake Total 1320 / 1320 1170 / 1170 600 / 600 Output Total 4450 / 4450 3800 / 3800 1325 / 1325 Balance -3130 / -3130 -2630 / -2630 -725 / -725 Microbiology Past 72 Hours 01/03/18 19:15 Gram Stain - Final Sputum, Expectorated/Coughed Respiratory Culture - Preliminary Staphylococcus species 04/03/18 23:55 Respiratory Panel (PCR) - Final Mucosa - Nasopharyngeal Laboratory Tests Past 24 Hrs 01/06/18 07:18 Sodium 139 Potassium 3.8 Chloride 98 Carbon Dioxide 34.0 H Anion Gap 7 BUN 25 H Creatinine 1.16 Estim Creat Clear Calc 81.76 Est GFR (MDRD) Af Amer 85 Est GFR (MDRD) Non-Af 70 BUN/Creatinine Ratio 21.6 H Glucose 134 H Calcium 8.6 POC Glucose 01/06/18 01/05/18 01/05/18 06:58 22:14 16:54 POC Glucose 170 H 136 H 135 H 01/05/18 10:46 POC Glucose 160 H Medical Necessity - Tobacco Use Smoking Status: Former smoker Assessment/Plan RECOMMENDATIONS: 1. Weekly okay to resume baseline diuretic therapy 2. Continue Pulmicort, likely okay to make DuoNeb's as needed 3. Consider initiation of another antihypertensive 4. NO antibiotics at discharge 5. Walking oximetry prior to discharge 6. Okay with discharge if able to tolerate walking oximetry without desaturation less than 89% 7. Patient can follow-up at his regularly scheduled appointment at the end of this month. IMPRESSIONS: 1. Acute hypoxic respiratory insufficiency Patient's oxygenation has significantly improved over the course of the hospitalization. Patient is down almost 8 L from admission. Stressed to the patient importance of a low-salt diet. Clinical suspicion for acute on chronic diastolic congestive heart failure. Patient can likely resume his baseline diuretic therapy. Patient can follow-up in the office at his regularly scheduled appointment at the end of this month. Daily weights and low-salt diet were reviewed in detail and patient voiced understanding. Clinical suspicion for staph aureus positive sputum culture representing colonization as patient has improved without antibiotics during the hospitalization. In my opinion, this should not be treated despite positive culture. 2. Uncontrolled obstructive sleep apnea Patient readily admits he is not compliant with BiPAP therapy. Stressed to the patient that this can lead to retention with minimal salt intake. Patient also has multiple comorbidities such as hypertension and possible diastolic congestive heart failure, which would be exacerbated by uncontrolled sleep apnea. Patient appears to be pre-contemplative at this time. 3. Regular alcohol and tobacco use Patient does drink alcohol on a consistent basis. No signs or symptoms of withdrawal at this time. Liver function tests are within normal limits. Does not have any physical stigmata such as telangiectasias or varices to suggest obvious cirrhosis. Patient encouraged to discontinue alcohol and tobacco use. 4. Hypertension/diabetes type 2/hyperlipidemia/morbid obesity Complicates care, management, recovery and prognosis. Tolerating discontinuation of steroids well. Patient's blood pressure has trended up after discontinuation of Norvasc. Would likely benefit from additional antihypertensive medications, but would defer to hospitalist. Code Visit Inpatient E&M: 79132 Subs Hosp L2
--- NOTE | 2018-01-06 11:15 | PCM.PN.HOSP ---
Subjective: Is a 52-year-old male was admitted with a one-week history of bilateral lower extremity pain and swelling as well as progressive dyspnea. On admission he has significant hypoxia in the 80s. He is been managed for toxic respiratory failure due to diastolic heart failure exacerbation, untreated obstructive sleep apnea and acute COPD exacerbation bronchitis. He has been on IV Lasix and IV steroids and on bronchodilator therapy. He has remained stable. Patient seen and examined this morning. He has no complaints and feels much better. He denies any shortness of breath or wheezing, any chest pain or palpitations, any abdominal pain no swelling, any diarrhea vomiting. He states his lower extremity swelling is also come down significantly. Review of systems otherwise negative. Patient admits to not using his CPAP because he cannot tolerate it. Patient counseled that he would need to start using it. Vitals/I&O's: Vital Signs Temp Pulse Resp BP Pulse Ox 97.5 F L 73 20 H 156/93 H 95 01/06/18 08:25 01/06/18 08:27 01/06/18 08:25 01/06/18 08:25 01/06/18 09:35 Oxygen Flow Rate (L/min) 2 Oxygen Delivery Method Room Air Weight: 308 lb 10.354 oz Body Mass Index (BMI) 43.7 Intake and Output for Last 24 Hours 01/04/18 01/05/18 01/06/18 23:59 23:59 23:59 Intake Total 1320 / 1320 1170 / 1170 600 / 600 Output Total 4450 / 4450 3800 / 3800 1325 / 1325 Balance -3130 / -3130 -2630 / -2630 -725 / -725 General: Alert, Oriented x3, Cooperative HEENT: Atraumatic, PERRLA, EOMI, Normocephalic Oral: Moist Mucosa Neck: Supple, No JVD, Negative Carotid Bruits Lungs: - - Had adequate breathsounds bilaterally with vesicular breath sounds and very few rhonchi auscultated bilaterally. Cardiovascular: Regular rate, Regular Rhythm, Normal S1, Normal S2, No murmurs Abdomen: Bowel Sounds Present, Soft, Non Tender, Non-Distended, No Hepato-splenomegaly Extremities: No clubbing, No cyanosis, Capillary Refill Less than 3 Seconds, - - Mild bipedal pitting edema lower extremities bilaterally Skin: No rashes, No breakdown Musculoskeletal: No Tenderness to Palpation of Joints or Extremities Lymphatic: No Cervical, Supraclavicular, or Inguinal Adenopathy Neurological: Cranial nerves II-XII grossly intact, Neuro grossly intact Psych/Mental Status: Normal Affect, Appropriate, Alert and oriented to time, place, person, mood and affect Microbiology Past 72 Hours 01/03/18 19:15 Sputum, Expectorated/Coughed Gram Stain - Final 01/03/18 19:15 Sputum, Expectorated/Coughed Respiratory Culture - Preliminary Staphylococcus aureus 01/02/18 23:55 Mucosa - Nasopharyngeal Respiratory Panel (PCR) - Final Laboratory Results 01/05/18 16:54: POC Glucose 135 H 01/05/18 22:14: POC Glucose 136 H 01/06/18 06:58: POC Glucose 170 H 01/06/18 07:18: Sodium 139, Potassium 3.8, Chloride 98, Carbon Dioxide 34.0 H, Anion Gap 7, BUN 25 H, Creatinine 1.16, Estim Creat Clear Calc 81.76, Est GFR (MDRD) Af Amer 85, Est GFR (MDRD) Non-Af 70, BUN/Creatinine Ratio 21.6 H, Glucose 134 H, Calcium 8.6 Current Medications Acetaminophen (Tylenol) 650 mg PO Q6H PRN PRN PRN Reason: Mild Pain (scale 0-3)/T>100.7 Albuterol Sulfate (Ventolin Aerosols) 2.5 mg INHALATION Q2H PRN PRN PRN Reason: Shortness of breath, wheezing Dextrose (D50w Syringe) 0 gm IV X1 PRN; Protocol PRN Reason: Hypoglycemia Diltiazem HCl (Cardizem Cd) 180 mg PO DAILY [facility] Last Admin: 01/06/18 08:26 Dose: 180 mg Doxycycline Monohydrate (Doxycycline) 100 mg PO BID [facility] Last Admin: 01/06/18 08:26 Dose: 100 mg Enoxaparin Sodium (Lovenox) 40 mg SC DAILY@0600 [facility] Last Admin: 01/06/18 05:05 Dose: 40 mg Famotidine (Pepcid) 20 mg PO BID [facility] Last Admin: 01/06/18 08:27 Dose: 20 mg Folic Acid (Folic Acid) 1 mg PO DAILY@0800 [facility] Last Admin: 01/06/18 08:26 Dose: 1 mg Furosemide (Lasix) 40 mg IV Q8 [facility] Last Admin: 01/06/18 05:05 Dose: 40 mg Glucagon () 1 mg IM .X1 PRN PRN Reason: Hypoglycemia Guaifenesin (Mucinex) 1,200 mg PO BID [facility] Last Admin: 01/06/18 08:27 Dose: 1,200 mg Insulin Aspart (Novolog Flexpen (Bkc)) 0 units SC ACHS [facility] PRN Reason: Protocol Last Admin: 01/06/18 08:26 Dose: 1 units Metoprolol Tartrate (Lopressor (Beta Yani)) 25 mg PO BID [facility] Last Admin: 01/06/18 08:27 Dose: 25 mg Ondansetron HCl (Zofran) 4 mg IV Q8H PRN PRN PRN Reason: Nausea Oxycodone HCl (Oxyir) 5 mg PO Q6H PRN PRN PRN Reason: Moderate Pain (pain scale 4-5) Last Admin: 01/05/18 23:07 Dose: 5 mg Pravastatin Sodium (Pravachol) 80 mg PO QHS [facility] Last Admin: 01/05/18 22:17 Dose: 80 mg Sodium Chloride () 5 - 30 ml IV UD PRN PRN Reason: SALINE FLUSH Last Admin: 01/06/18 05:05 Dose: 10 ml Zolpidem Tartrate (Ambien (Generic)) 5 mg PO QHS PRN PRN PRN Reason: INSOMNIA Last Admin: 01/05/18 23:09 Dose: 5 mg Medical Necessity - Tobacco Use Smoking Status: Former smoker Assessment/Plan 1. Acute hypoxic respiratory failure due to untreated sleep apnea COPD exacerbation and acute exacerbation of heart failure Resolving. Patient feels very well and is breathing comfortably on room air. Pulse ox with ambulation was 95% on room air. Counseled to use CPAP machine at home. 2. Acute on chronic HFpEF: on IV lasix 40mg bid. In negative balance by 725mls over last 24 hours. In total negative balance by 8.45L since admission. Will switch to PO lasix today BNpep was just 18 on admission 2D echo done showed EF of 65%, with moderately enlarged left atrium, normal right atrium and normal diastolic function for age. Trivial tricuspid insufficiency, with RVSP of 27mmHg. 3. MEREDITH; patient has had a sleep study and been told he has sleep apnea. However, he is not compliant with CPAP. Counselled to wear CPAP at home 4. Acute COPD exacerbation: on bronchodilators and IV steroids. Had been on PO doxycycline because sputum cultures grew Staph. Will dc home on no antibiotics as he has no evidence of infection. Will give PO prednisone 40mg daily x 5 days. 5. Diabetes; poorly controlled. Fasting sugar today is 170. On metformin. Will resume. To follow up with PCP for adjustment of diabetes meds 6. Hypertension; control improving. On cardizem and metoprolol. Norvasc was dced due to pedal edema. I am uncomfortable with patient being on cardizem in light of his heart failure. No documentation about whether he also has Afib or otherwise. Will defer to his PCP and admissions director about stopping Cardizem. 7. Elevated bicarb: Was 26 on admission.likely due to contraction alkalosis from diuresis Bicarb is down to 34 today. Could possibly be compensatory from CO2 retention due to COPD exacerbation. Howerver, since its improving, will defer on ABG and just monitor. 8. Super morbid obesity: patient counselled to lose weight through exercise and diet. Disposition: DC home today. To follow up with pulmonology and PCP. Code Visit Inpatient E&M: 84024 Subs Hosp L2
--- NOTE | 2018-01-06 11:27 | PN_ITS ---
Subjective: Is a 52-year-old male was admitted with a one-week history of bilateral lower extremity pain and swelling as well as progressive dyspnea. On admission he has significant hypoxia in the 80s. He is been managed for toxic respiratory failure due to diastolic heart failure exacerbation, untreated obstructive sleep apnea and acute COPD exacerbation bronchitis. He has been on IV Lasix and IV steroids and on bronchodilator therapy. He has remained stable. Patient seen and examined this morning. He has no complaints and feels much better. He denies any shortness of breath or wheezing, any chest pain or palpitations, any abdominal pain no swelling, any diarrhea vomiting. He states his lower extremity swelling is also come down significantly. Review of systems otherwise negative. Patient admits to not using his CPAP because he cannot tolerate it. Patient counseled that he would need to start using it. Vitals/I&O's: Vital Signs Temp Pulse Resp BP Pulse Ox 97.5 F L 73 20 H 156/93 H 95 01/06/18 08:25 01/06/18 08:27 01/06/18 08:25 01/06/18 08:25 01/06/18 09:35 Oxygen Flow Rate (L/min) 2 Oxygen Delivery Method Room Air Weight: 308 lb 10.354 oz Body Mass Index (BMI) 43.7 Intake and Output for Last 24 Hours 01/04/18 01/05/18 01/06/18 23:59 23:59 23:59 Intake Total 1320 / 1320 1170 / 1170 600 / 600 Output Total 4450 / 4450 3800 / 3800 1325 / 1325 Balance -3130 / -3130 -2630 / -2630 -725 / -725 General: Alert, Oriented x3, Cooperative HEENT: Atraumatic, PERRLA, EOMI, Normocephalic Oral: Moist Mucosa Neck: Supple, No JVD, Negative Carotid Bruits Lungs: - - Had adequate breathsounds bilaterally with vesicular breath sounds and very few rhonchi auscultated bilaterally. Cardiovascular: Regular rate, Regular Rhythm, Normal S1, Normal S2, No murmurs Abdomen: Bowel Sounds Present, Soft, Non Tender, Non-Distended, No Hepato- splenomegaly Extremities: No clubbing, No cyanosis, Capillary Refill Less than 3 Seconds, - - Mild bipedal pitting edema lower extremities bilaterally Skin: No rashes, No breakdown Musculoskeletal: No Tenderness to Palpation of Joints or Extremities Lymphatic: No Cervical, Supraclavicular, or Inguinal Adenopathy Neurological: Cranial nerves II-XII grossly intact, Neuro grossly intact Psych/Mental Status: Normal Affect, Appropriate, Alert and oriented to time, place, person, mood and affect Microbiology Past 72 Hours 01/03/18 19:15 Sputum, Expectorated/Coughed Gram Stain - Final 01/03/18 19:15 Sputum, Expectorated/Coughed Respiratory Culture - Preliminary Staphylococcus aureus 01/02/18 23:55 Mucosa - Nasopharyngeal Respiratory Panel (PCR) - Final Laboratory Results 01/05/18 16:54: POC Glucose 135 H 01/05/18 22:14: POC Glucose 136 H 01/06/18 06:58: POC Glucose 170 H 01/06/18 07:18: Sodium 139, Potassium 3.8, Chloride 98, Carbon Dioxide 34.0 H, Anion Gap 7, BUN 25 H, Creatinine 1.16, Estim Creat Clear Calc 81.76, Est GFR ( MDRD) Af Amer 85, Est GFR (MDRD) Non-Af 70, BUN/Creatinine Ratio 21.6 H, Glucose 134 H, Calcium 8.6 Current Medications Acetaminophen (Tylenol) 650 mg PO Q6H PRN PRN PRN Reason: Mild Pain (scale 0-3)/T>100.7 Albuterol Sulfate (Ventolin Aerosols) 2.5 mg INHALATION Q2H PRN PRN PRN Reason: Shortness of breath, wheezing Dextrose (D50w Syringe) 0 gm IV X1 PRN; Protocol PRN Reason: Hypoglycemia Diltiazem HCl (Cardizem Cd) 180 mg PO DAILY [facility] Last Admin: 01/06/18 08:26 Dose: 180 mg Doxycycline Monohydrate (Doxycycline) 100 mg PO BID [facility] Last Admin: 01/06/18 08:26 Dose: 100 mg Enoxaparin Sodium (Lovenox) 40 mg SC DAILY@0600 [facility] Last Admin: 01/06/18 05:05 Dose: 40 mg Famotidine (Pepcid) 20 mg PO BID [facility] Last Admin: 01/06/18 08:27 Dose: 20 mg Folic Acid (Folic Acid) 1 mg PO DAILY@0800 [facility] Last Admin: 01/06/18 08:26 Dose: 1 mg Furosemide (Lasix) 40 mg IV Q8 [facility] Last Admin: 01/06/18 05:05 Dose: 40 mg Glucagon () 1 mg IM .X1 PRN PRN Reason: Hypoglycemia Guaifenesin (Mucinex) 1,200 mg PO BID [facility] Last Admin: 01/06/18 08:27 Dose: 1,200 mg Insulin Aspart (Novolog Flexpen (Bkc)) 0 units SC ACHS VIVIANE PRN Reason: Protocol Last Admin: 01/06/18 08:26 Dose: 1 units Metoprolol Tartrate (Lopressor (Beta Yani)) 25 mg PO BID [facility] Last Admin: 01/06/18 08:27 Dose: 25 mg Ondansetron HCl (Zofran) 4 mg IV Q8H PRN PRN PRN Reason: Nausea Oxycodone HCl (Oxyir) 5 mg PO Q6H PRN PRN PRN Reason: Moderate Pain (pain scale 4-5) Last Admin: 01/05/18 23:07 Dose: 5 mg Pravastatin Sodium (Pravachol) 80 mg PO QHS [facility] Last Admin: 01/05/18 22:17 Dose: 80 mg Sodium Chloride () 5 - 30 ml IV UD PRN PRN Reason: SALINE FLUSH Last Admin: 01/06/18 05:05 Dose: 10 ml Zolpidem Tartrate (Ambien (Generic)) 5 mg PO QHS PRN PRN PRN Reason: INSOMNIA Last Admin: 01/05/18 23:09 Dose: 5 mg Medical Necessity - Tobacco Use Smoking Status: Former smoker Assessment/Plan 1. Acute hypoxic respiratory failure due to untreated sleep apnea COPD exacerbation and acute exacerbation of heart failure * Resolving. Patient feels very well and is breathing comfortably on room air. * Pulse ox with ambulation was 95% on room air. * Counseled to use CPAP machine at home. * 2. Acute on chronic HFpEF: * on IV lasix 40mg bid. * In negative balance by 725mls over last 24 hours. In total negative balance by 8.45L since admission. Will switch to PO lasix today * BNpep was just 18 on admission * 2D echo done showed EF of 65%, with moderately enlarged left atrium, normal right atrium and normal diastolic function for age. Trivial tricuspid insufficiency, with RVSP of 27mmHg. 3. MEREDITH; patient has had a sleep study and been told he has sleep apnea. However , he is not compliant with CPAP. Counselled to wear CPAP at home 4. Acute COPD exacerbation: on bronchodilators and IV steroids. Had been on PO doxycycline because sputum cultures grew Staph. Will dc home on no antibiotics as he has no evidence of infection. Will give PO prednisone 40mg daily x 5 days. 5. Diabetes; poorly controlled. Fasting sugar today is 170. On metformin. Will resume. To follow up with PCP for adjustment of diabetes meds 6. Hypertension; control improving. On cardizem and metoprolol. Norvasc was dced due to pedal edema. I am uncomfortable with patient being on cardizem in light of his heart failure. No documentation about whether he also has Afib or otherwise. Will defer to his PCP and carding supervisor about stopping Cardizem. 7. Elevated bicarb: Was 26 on admission.likely due to contraction alkalosis from diuresis Bicarb is down to 34 today. Could possibly be compensatory from CO2 retention due to COPD exacerbation. Howerver, since its improving, will defer on ABG and just monitor. 8. Super morbid obesity: patient counselled to lose weight through exercise and diet. Disposition: DC home today. To follow up with pulmonology and PCP. Code Visit Inpatient E&M: 74156 Subs Hosp L2
[2018-01-06] MEDS: oxyCODONE 5 MG Tablet PO (11:28)
--- NOTE | 2018-01-06 11:34 | PCM.DC ---
Your food should be the consistency of: Regular Your liquids should be the consistency of: Regular/Thin Discharge Activity: Return to Normal Activity May resume sexual activity in: No Restrictions Weight Bearing Status: Weight bearing as tolerated Allergies/Adverse Reactions: Allergies losartan Adverse Reaction (Verified 01/02/18 20:28) Angioedema Medications to take at Discharge Pravastatin Sodium 80 mg PO QHS 07/29/17 albuterol sulfate 90 mcg/actuation breath activated powder inhaler 2 puff INHALATION Q4H PRN #1 ea 10/25/17 Diltiazem [Cardizem] 180 mg PO DAILY 01/05/18 Famotidine 20 mg PO BID 01/05/18 Folic Acid 1 mg PO DAILY 01/05/18 Furosemide 40 mg PO DAILY 01/05/18 Metformin HCl 500 mg PO BID 01/05/18 Metoprolol Tartrate [Lopressor (beta fang)] 25 mg PO BID 01/05/18 Prednisone [Deltasone] 40 mg PO DAILY 5 Days #10 tab 01/06/18 The following prescriptions were given: Prednisone [Deltasone] 40 mg PO DAILY 5 Days #10 tab Primary Care Physician: Thompson Ramos DO [Primary Care Provider] - Please follow up with your Primary Care Physician in: one week Please Follow Up With: Eusebio Nair MD When: 2 weeks Proposed Discharge Date: 01/06/18
--- NOTE | 2018-01-06 11:43 | PCM.DC.SUM ---
Discharge Date and Diagnosis Date of Admission: 01/02/18 Date of Discharge: 01/06/18 - Primary Discharge Diagnosis hypoxic respiratory failure untreated sleep apnea Acute COPD exacerbation - Secondary Discharge Diagnosis Chronic Problems (Last Updated 01/02/18 @ 22:47 by Shira Rios MD) Alcohol abuse (Chronic) Tobacco abuse (Chronic) Chronic hypoxemic respiratory failure (Chronic) Dyspnea (Chronic) CHF (congestive heart failure) (Chronic) Hypertension (Chronic) Dyslipidemia (Chronic) MEREDITH treated with BiPAP (Chronic) COPD (chronic obstructive pulmonary disease) (Chronic) Hospital Course and Treatment Imaging Results: Laboratory Tests 01/02/18 01/02/18 01/02/18 20:40 20:40 20:40 WBC 6.6 RBC 4.57 L Hgb 14.8 Hct 43.1 MCV 94.3 H MCH 32.4 H MCHC 34.3 RDW 12.9 RDW Differential 43.3 Plt Count 220 MPV 9.2 Immature Gran % (Auto) 0.200 Neut % (Auto) 64.7 Lymph % (Auto) 22.8 [place] % (Auto) 9.7 Eos % (Auto) 1.7 Baso % (Auto) 0.9 Absolute Neuts (auto) 4.3 Absolute Lymphs (auto) 1.50 Total Counted Not Reportable Sodium 138 Potassium 3.5 Chloride 101 Carbon Dioxide 26.0 Anion Gap 11 BUN 14 Creatinine 0.97 Estim Creat Clear Calc 97.78 Est GFR (MDRD) Af Amer 104 Est GFR (MDRD) Non-Af 86 BUN/Creatinine Ratio 14.4 Glucose 191 H Calcium 8.3 L Total Bilirubin Direct Bilirubin AST ALT Alkaline Phosphatase Troponin I < 0.02 B-Natriuretic Peptide 18.4 Total Protein Albumin Globulin POC Glucose 01/03/18 01/03/18 01/03/18 06:15 06:15 06:15 WBC 5.9 RBC 4.81 Hgb 15.3 Hct 46.1 MCV 95.8 H MCH 31.8 MCHC 33.2 RDW 13.1 RDW Differential 44.9 H Plt Count 234 MPV 9.4 Immature Gran % (Auto) 0.200 Neut % (Auto) 92.9 H Lymph % (Auto) 6.4 L [place] % (Auto) 0.3 Eos % (Auto) 0.0 Baso % (Auto) 0.2 Absolute Neuts (auto) 5.5 Absolute Lymphs (auto) 0.38 L Total Counted Not Reportable Sodium 138 Potassium 4.2 Chloride 98 Carbon Dioxide 31.0 Anion Gap 9 BUN 15 Creatinine 1.10 Estim Creat Clear Calc 86.22 Est GFR (MDRD) Af Amer 90 Est GFR (MDRD) Non-Af 75 BUN/Creatinine Ratio 13.6 Glucose 234 H Calcium 8.5 Total Bilirubin 0.20 Direct Bilirubin 0.05 AST 27 ALT 34 Alkaline Phosphatase 74 Troponin I B-Natriuretic Peptide Total Protein 8.1 Albumin 3.8 Globulin 4.3 H POC Glucose 01/03/18 01/03/18 01/03/18 06:52 11:28 16:41 WBC RBC Hgb Hct MCV MCH MCHC RDW RDW Differential Plt Count MPV Immature Gran % (Auto) Neut % (Auto) Lymph % (Auto) [place] % (Auto) Eos % (Auto) Baso % (Auto) Absolute Neuts (auto) Absolute Lymphs (auto) Total Counted Sodium Potassium Chloride Carbon Dioxide Anion Gap BUN Creatinine Estim Creat Clear Calc Est GFR (MDRD) Af Amer Est GFR (MDRD) Non-Af BUN/Creatinine Ratio Glucose Calcium Total Bilirubin Direct Bilirubin AST ALT Alkaline Phosphatase Troponin I B-Natriuretic Peptide Total Protein Albumin Globulin POC Glucose 236 H 293 H 235 H 01/03/18 01/04/18 01/04/18 22:32 06:45 06:45 WBC 11.6 H RBC 4.81 Hgb 15.3 Hct 47.2 MCV 98.1 H MCH 31.8 MCHC 32.4 RDW 13.4 RDW Differential 47.6 H Plt Count 250 MPV 9.2 Immature Gran % (Auto) 0.200 Neut % (Auto) 84.9 H Lymph % (Auto) 8.8 L [place] % (Auto) 5.9 Eos % (Auto) 0.0 Baso % (Auto) 0.2 Absolute Neuts (auto) 9.9 H Absolute Lymphs (auto) 1.03 Total Counted Not Reportable Sodium 140 Potassium 3.9 Chloride 97 L Carbon Dioxide 37.0 H Anion Gap 6 BUN 22 H Creatinine 1.06 Estim Creat Clear Calc 89.48 Est GFR (MDRD) Af Amer 94 Est GFR (MDRD) Non-Af 78 BUN/Creatinine Ratio 20.8 H Glucose 144 H Calcium 8.8 Total Bilirubin Direct Bilirubin AST ALT Alkaline Phosphatase Troponin I B-Natriuretic Peptide Total Protein Albumin Globulin POC Glucose 187 H 01/04/18 01/04/18 01/04/18 06:52 11:08 16:06 WBC RBC Hgb Hct MCV MCH MCHC RDW RDW Differential Plt Count MPV Immature Gran % (Auto) Neut % (Auto) Lymph % (Auto) [place] % (Auto) Eos % (Auto) Baso % (Auto) Absolute Neuts (auto) Absolute Lymphs (auto) Total Counted Sodium Potassium Chloride Carbon Dioxide Anion Gap BUN Creatinine Estim Creat Clear Calc Est GFR (MDRD) Af Amer Est GFR (MDRD) Non-Af BUN/Creatinine Ratio Glucose Calcium Total Bilirubin Direct Bilirubin AST ALT Alkaline Phosphatase Troponin I B-Natriuretic Peptide Total Protein Albumin Globulin POC Glucose 133 H 257 H 225 H 01/04/18 01/05/18 01/05/18 21:58 06:20 06:54 WBC RBC Hgb Hct MCV MCH MCHC RDW RDW Differential Plt Count MPV Immature Gran % (Auto) Neut % (Auto) Lymph % (Auto) [place] % (Auto) Eos % (Auto) Baso % (Auto) Absolute Neuts (auto) Absolute Lymphs (auto) Total Counted Sodium 142 Potassium 3.4 L Chloride 98 Carbon Dioxide 35.0 H Anion Gap 9 BUN 24 H Creatinine 0.94 Estim Creat Clear Calc 100.90 Est GFR (MDRD) Af Amer 108 Est GFR (MDRD) Non-Af 89 BUN/Creatinine Ratio 25.5 H Glucose 121 H Calcium 8.6 Total Bilirubin Direct Bilirubin AST ALT Alkaline Phosphatase Troponin I B-Natriuretic Peptide Total Protein Albumin Globulin POC Glucose 108 130 H 01/05/18 01/05/18 01/05/18 10:46 16:54 22:14 WBC RBC Hgb Hct MCV MCH MCHC RDW RDW Differential Plt Count MPV Immature Gran % (Auto) Neut % (Auto) Lymph % (Auto) [place] % (Auto) Eos % (Auto) Baso % (Auto) Absolute Neuts (auto) Absolute Lymphs (auto) Total Counted Sodium Potassium Chloride Carbon Dioxide Anion Gap BUN Creatinine Estim Creat Clear Calc Est GFR (MDRD) Af Amer Est GFR (MDRD) Non-Af BUN/Creatinine Ratio Glucose Calcium Total Bilirubin Direct Bilirubin AST ALT Alkaline Phosphatase Troponin I B-Natriuretic Peptide Total Protein Albumin Globulin POC Glucose 160 H 135 H 136 H 01/06/18 01/06/18 01/06/18 06:58 07:18 11:23 WBC RBC Hgb Hct MCV MCH MCHC RDW RDW Differential Plt Count MPV Immature Gran % (Auto) Neut % (Auto) Lymph % (Auto) [place] % (Auto) Eos % (Auto) Baso % (Auto) Absolute Neuts (auto) Absolute Lymphs (auto) Total Counted Sodium 139 Potassium 3.8 Chloride 98 Carbon Dioxide 34.0 H Anion Gap 7 BUN 25 H Creatinine 1.16 Estim Creat Clear Calc 81.76 Est GFR (MDRD) Af Amer 85 Est GFR (MDRD) Non-Af 70 BUN/Creatinine Ratio 21.6 H Glucose 134 H Calcium 8.6 Total Bilirubin Direct Bilirubin AST ALT Alkaline Phosphatase Troponin I B-Natriuretic Peptide Total Protein Albumin Globulin POC Glucose 170 H 142 H Diagnostic Data Chest X-Ray 01/02/18 20:37 IMPRESSION: Mild left basilar atelectasis. Electronically Signed: Timoteo Barney DO at 21:27 EDT Tel [phone], Service support , pulmonology Operations: None Procedures: 2-D Echocardiogram - EF of 65%, with moderately enlarged left atrium, normal right atrium, and normal diastolic function for age. RVSP was 27mmhg. Summary of Care Provided: Patient s a 52-year-old male was admitted with a one-week history of bilateral lower extremity pain and swelling as well as progressive dyspnea. On admission he has significant hypoxia in the 80s. He was managed for hypoxic respiratory failure due to untreated obstructive sleep apnea and acute COPD exacerbation and bronchitis, and less likely diastolic heart failure (BNPep was only 18.4). he was treated with IV lasix and steroids,a s well as bronchodilator therapy. 2D echo done showed EF of 65% with RVSP of 27mmHg. Patient was not compliant with his CPAP. He was therefore counselled extensively on using it. Amlodipine was stopped o/a of lower extremity edema. He remained stable and was discharged home on PO prednisone 40mg daily x 5 days and PO lasix. He is to follow up with his PCP and pulmonology. Of note, patient was on cardizem, even though he is thought to have heart failure. BNPEp during admission was only ~ 18.4, and he had no documented history of atrial fibrillation. 2D echo showed EF of 65%, normal diastolic dysfunction, and RVSP of 27mmHg. , and Will therefore defer to his PCP and assistant director of residence life about whether to stop/continue cardizem due to question of heart failure. .[] Discharge Diet: 1800 Calorie Control Diet Discharge Activity: Return to Normal Activity May resume sexual activity in: No Restrictions Weight Bearing Status: Weight bearing as tolerated Home Medications: Medications to take at Discharge Pravastatin Sodium 80 mg PO QHS 07/29/17 albuterol sulfate 90 mcg/actuation breath activated powder inhaler 2 puff INHALATION Q4H PRN #1 ea 10/25/17 Diltiazem [Cardizem] 180 mg PO DAILY 01/05/18 Famotidine 20 mg PO BID 01/05/18 Folic Acid 1 mg PO DAILY 01/05/18 Furosemide 40 mg PO DAILY 01/05/18 Metformin HCl 500 mg PO BID 01/05/18 Metoprolol Tartrate [Lopressor (beta fang)] 25 mg PO BID 01/05/18 Prednisone [Deltasone] 40 mg PO DAILY 5 Days #10 tab 01/06/18 Following Prescrptions Were Given to Patient: Prednisone [Deltasone] 40 mg PO DAILY 5 Days #10 tab Primary Care Physician: Thompson Ramos DO [Primary Care Provider] - Please follow up with your Primary Care Physician in: one week Please Follow Up With: Eusebio Nair MD When: 2 weeks Disposition: Home Minutes spent on discharge:: 25 Patient Condition:: Good Medical Necessity - Tobacco Use Smoking Status: Former smoker Meaningful Use Info Meaningful Use Diagnoses (Choose all that apply): CHF - CHF ARNALDO/ARB ordered at discharge?: No Reason ARNALDO/ARB not ordered?: Allergy, Angioedema Documented LVEF (%): 65 - CVA Therapy Assessed for PT,OT and/or ST?: No Reason therapy not assessed?: Patient Noncompliant Code Visit Inpatient E&M: [id number] Disch Hosp
[2018-01-06 11:46] LABS: Bedside Glucose 142 mg/dL (70-110)
--- NOTE | 2018-01-08 15:35 | CASEMGMT ---
LUIS M YU Discharge Follow-Up Phone Call. YENNIFER: 12 Strata: 4 Call Date: 01/08/18 Discharge Date: 01/05/18 Time: 1530 Duration: 2.5 minutes Adm Dx: COPD RN GIGI spoke with Mr. Alexis re: how he is feeling since she left the hospital. Mr. Alexis reports he has been feeling better, and has not had any problems breathing since leaving the hospital. He reports he picked up his Prednisone from the pharmacy and has been taking as prescribed. Mr. Alexis reports he is back to work and repeats he's back to normal, and has a follow-up appnt scheduled with pulmonary doctor. Mr. Alexis denies questions re: discharge instructions or medications. LUIS M YU did ask about smoking cessation and Mr. Alexis reports he is working with the pulmonary team re: this. Reports no needs at this time. JONAS Hernandez, RN-BC, CCM
== END 2018-01-06 12:32 | disposition home or self-care (01) | DRG 189 ==
LOC: ED 21:02 → PCU 22:36
PROVIDERS: Internal Medicine; Internal Medicine Critical Care Medicine; Admitting Provider Hospitalist; Emergency Provider Emergency Medicine; Family Provider Preventive Medicine Occupational Medicine; PCP Preventive Medicine Occupational Medicine; Visit Provider Student in an Organized Health Care Education/Training Program
DX: J96.21 Acute and chronic respiratory failure with hypoxia (principal); I50.33 Acute on chronic diastolic (congestive) heart failure; J44.1 Chronic obstructive pulmonary disease with (acute) exacerbation; Z68.41 Body mass index [BMI] 40.0-44.9, adult; I11.0 Hypertensive heart disease with heart failure; E78.5 Hyperlipidemia, unspecified; G47.33 Obstructive sleep apnea (adult) (pediatric); F17.200 Nicotine dependence, unspecified, uncomplicated; E66.01 Morbid (severe) obesity due to excess calories; Z71.3 Dietary counseling and surveillance; F10.10 Alcohol abuse, uncomplicated; E11.65 Type 2 diabetes mellitus with hyperglycemia
CPT/HCPCS: 36415; 71045; 80048; 80076; 82962; 83880; 84484; 85025; 87070; 87077; 87186; 87205; 87633; 93005; 93306; 94640; 94667; 94668; 97161; 97802; 99283; Q9957; A4216; C8929; J1940; J2405

== ENCOUNTER 2021-02-13 22:01 | Observation (INO) | payer OTHER, SELFPAY ==
[2021-02-13 22:02] VITALS: BP 128/72; PULSE 76; RESP 18; TEMP 36.1; O2SAT 79; BMI 38.6
[2021-02-13 22:27] VITALS: BP 132/98; PULSE 117; RESP 20; O2SAT 98
[2021-02-13 22:49] VITALS: O2SAT 97
--- NOTE | 2021-02-13 23:03 | EKG12_ITS ---
Test Reason : REPEAT Blood Pressure : / mmHG Vent. Rate : 109 BPM Atrial Rate : 063 BPM P-R Int : 216 ms QRS Dur : 148 ms QT Int : 384 ms P-R-T Axes : -22 -61 057 degrees QTc Int : 517 ms Sinus rhythm with 1st degree A-V block with Premature supraventricular complexes Left axis deviation Right bundle branch block Septal infarct , age undetermined Inferior infarct , age undetermined Abnormal ECG Confirmed by CAMDEN MEDRANO, OSIRIS ([id number]), assignment editor ANDREW FERRARA ([id number]) on 02/16/2021 9:24:46 AM Referred By: ZAID Confirmed By:OSIRIS HANNAH MD
--- NOTE | 2021-02-13 23:07 | ED.VIS.DYS ---
HPI History of Present Illness Chief Complaint: Shortness of Breath Narrative Narrative: Patient stated for the last 2 months he has been feeling weak and fatigued. He has had some intermittent shortness of breath. This happened after he finished the second Covid vaccination per patient. 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 They decided to bring him in for further evaluation. He denies any significant shortness of breath at this time. He is not on any home oxygen. He denies any history of heart attack. He does have a history of atrial fibrillation and has had congestive heart failure in the past. Has history of COPD and does smoke cigarettes. Patient denies any stents in his heart. Current severity is moderate. Worsened by exertion. Stated he has been like this since his Covid vaccination. [facility] Medical History Alcohol abuse Angioedema of lips Atrial fibrillation CHF (congestive heart failure) Chronic hypoxemic respiratory failure COPD (chronic obstructive pulmonary disease) Dyslipidemia Dyspnea Hypertension MEREDITH treated with BiPAP Tobacco abuse Home Medications pravastatin 80 mg PO QHS 07/29/17 [History Last Taken Unknown] albuterol sulfate 90 mcg/actuation breath activated powder inhaler 2 puff INHALATION Q4H PRN #1 ea 10/25/17 [Rx Last Taken Unknown] Furosemide 40 mg PO DAILY 01/05/18 [History Last Taken Unknown] diltiazem HCl 180 mg PO DAILY 01/05/18 [History Last Taken Unknown] famotidine 20 mg PO BID 01/05/18 [History Last Taken Unknown] folic acid 1 mg PO DAILY 01/05/18 [History Last Taken Unknown] metformin 500 mg PO BID 01/05/18 [History Last Taken Unknown] metoprolol tartrate 25 mg PO BID 01/05/18 [History Last Taken Unknown] paroxetine HCl 10 mg tablet 10 mg PO QAM 01/23/18 [History Last Taken Unknown] fluticasone fur. 100 mcg-umeclid 62.5 mcg-vilant 25 mcg inhalat.powder 1 inh INHALATION QDAY #60 ea 07/09/20 [Rx Last Taken Unknown] Allergy/AdvReac Type Severity Reaction Status Date / Time losartan AdvReac Angioedema Verified 02/13/21 22:05 Social History Smoking Status: Heavy Smoker (>10/day) Tobacco: How many years used: 35 second hand exposure: No alcohol intake: never substance use type: does not use ROS ROS ED ROS Narrative ROS General: Denies fever, chills, sweats Eyes: Denies visual changes, blurred vision, double vision ENT: Denies ear pain, rhinorrhea, sore throat Cardiovascular: Denies chest pain, palpitations, heart racing Respiratory: See HPI GI: Denies abdominal pain, nausea, vomiting, diarrhea, constipation, melena : Denies dysuria, hematuria, frequency Musculoskeletal: Denies myalgias, arthralgias, neck pain, back pain Skin: Denies rash, abscess, abrasions Neuro: Denies headache, see HPI Psych: Denies depression, anxiety Endo: Denies polyuria, polydipsia, polyphagia Heme: Denies easy bruising, easy bleeding, lymphadenopathy Allergy: Denies hives, swelling EXAM Physical Exam Narrative Exam Narrative: Vital signs reviewed General: Well-nourished well-developed Head: Normocephalic atraumatic Eyes: Pupils equal round and reactive to light extraocular movements intact ENT: TMs clear no hemotympanum no trauma Neck: Nontender full range of motion Cardiovascular: Regular tachycardia with normal rhythm no murmurs normal S1-S2 Respiratory: No distress mild end expiratory wheezes bilateral chest nontender Abdomen: Soft nontender nondistended normal bowel sounds no masses Back: Nontender no CVA tenderness Extremities: Nontender active range of motion ?4 extremities no trauma. No edema Skin: Normal color no trauma Neuro alert oriented cranial nerves II through XII intact normal strength sensation reflexes Const Vital Signs: 02/13/21 22:02 02/13/21 22:27 02/13/21 22:49 Temperature 97 F L Temperature Source Temporal Pulse Rate 76 117 H Respiratory Rate 18 20 H Respiratory Effort Short of Breath Blood Pressure 128/72 H 132/98 H Blood Pressure Mean 90 109 Pulse Ox 79 98 97 Oxygen Delivery Method Room Air Nasal Cannula Nasal Cannula Oxygen Flow Rate (L/min) 4 4 02/13/21 23:09 02/14/21 00:31 02/14/21 01:41 Temperature 97.3 F L Temperature Source Temporal Pulse Rate 109 H 119 H 108 H Respiratory Rate 20 H 22 H 18 Respiratory Effort Blood Pressure 146/100 H 156/107 H 156/94 H Blood Pressure Mean 115 123 114 Pulse Ox 93 97 97 Oxygen Delivery Method Nasal Cannula Nasal Cannula Nasal Cannula Oxygen Flow Rate (L/min) 4 4 4 02/14/21 02:07 Temperature 97.9 F Temperature Source Temporal Pulse Rate 111 H Respiratory Rate 20 H Respiratory Effort Blood Pressure 170/93 H Blood Pressure Mean 118 Pulse Ox 96 Oxygen Delivery Method Nasal Cannula Oxygen Flow Rate (L/min) 4 MDM MDM MDM Narrative Medical decision making narrative: EKG upon arrival shows OK impression atrial fibrillation with PVCs. New right bundle branch block from previous. Repeat unchanged. Rate of 117. IV established. Given DuoNeb breathing treatment for expiratory wheezes. Lab work obtained. Chest x-ray obtained. My interpretation of the chest x-ray shows no acute abnormalities. Lab work shows a negative troponin level. D-dimer 1.4. Followed up with a CT angio of the chest that showed no PE or dissection. Left upper lobe atelectasis noted. BNP mildly elevated nonspecific in my opinion. CBC showed no major abnormalities. Patient remained stable. Given 1 dose of Lopressor. His heart rate came down to 100. It is easier to see he is in atrial fibrillation. Discussed with the hospitalist and will be admitted. This is a recurrent problem for him. The last time he was in atrial fibrillation is in 2019. He was cardioverted at that time. He stated he is on a blood thinner but is not sure the name of it Lab Data Labs: Laboratory Results - last 24 hr 02/13/21 02/13/21 02/13/21 22:16 22:16 22:16 WBC 8.0 RBC 5.58 Hgb 15.5 Hct 52.9 MCV 94.8 H MCH 27.8 MCHC 29.3 L RDW Std Deviation 55.6 H RDW Coeff of Courtney 15.9 H Plt Count 268 MPV 10.8 Immature Gran % (Auto) 0.300 Neut % (Auto) 68.7 Lymph % (Auto) 19.4 [place] % (Auto) 9.9 Eos % (Auto) 0.8 Baso % (Auto) 0.9 Absolute Neuts (auto) 5.5 Absolute Lymphs (auto) 1.55 Nucleated RBC % 0.3 D-Dimer Quant (PE/DVT) 1.42 H* Sodium 139 Potassium 3.8 Chloride 98 Carbon Dioxide 36.0 H Anion Gap 5 BUN 23 H Creatinine 1.51 H Estim Creat Clear Calc 60.67 Est GFR (MDRD) Af Amer 62 Est GFR (MDRD) Non-Af 51 L BUN/Creatinine Ratio 15.2 Glucose 170 H Calcium 8.5 Troponin I 0.021 B-Natriuretic Peptide 02/13/21 22:16 WBC RBC Hgb Hct MCV MCH MCHC RDW Std Deviation RDW Coeff of Courtney Plt Count MPV Immature Gran % (Auto) Neut % (Auto) Lymph % (Auto) [place] % (Auto) Eos % (Auto) Baso % (Auto) Absolute Neuts (auto) Absolute Lymphs (auto) Nucleated RBC % D-Dimer Quant (PE/DVT) Sodium Potassium Chloride Carbon Dioxide Anion Gap BUN Creatinine Estim Creat Clear Calc Est GFR (MDRD) Af Amer Est GFR (MDRD) Non-Af BUN/Creatinine Ratio Glucose Calcium Troponin I B-Natriuretic Peptide 283.5 H Radiography Diagnostic Testing: Radiology Impression Chest X-Ray 02/13/21 23:30 IMPRESSION: Mild cardiomegaly. Electronically Signed: Luis Campuzano MD at 0:43 EDT , Service support , Chest CTA 02/14/21 23:53 IMPRESSION: No pulmonary embolus or thoracic aortic dissection. Mild cardiomegaly. Mildly enlarged mediastinal lymph node. Left upper lobe subsegmental atelectasis or less likely pneumonia. Electronically Signed: Luis Campuzano MD at 1:28 EDT , Service support , Discharge Plan Triage Chief Complaint: Shortness of Breath ED Provider: Randy Hoffman Dx/Rx/DC Orders Prescriptions: No Action albuterol sulfate [ProAir RespiClick] 90 mcg/actuation aerosol powdr breath activated 2 puff INHALATION Q4H PRN (Reason: shortness of breath or wheezing) Qty: 1 RF: 6 paroxetine HCl 10 mg tablet 10 mg PO QAM RF: 0 pravastatin 80 MG tablet 80 mg PO QHS RF: 0 metformin 500 MG tablet 500 mg PO BID RF: 0 famotidine 20 MG tablet 20 mg PO BID RF: 0 folic acid 1 MG tablet 1 mg PO DAILY RF: 0 diltiazem HCl 60 MG tablet 180 mg PO DAILY RF: 0 metoprolol tartrate 25 MG tablet 25 mg PO BID RF: 0 Furosemide 40 MG tablet 40 mg PO DAILY RF: 0 Trelegy Ellipta 100-62.5-25 mcg blister with device 1 inh INHALATION QDAY Qty: 60 RF: 6 Primary Care Provider: Thompson Ramos
[2021-02-13] MEDS: Ipratropium/Albuterol Sulfate 3 ML AMPUL.NEB INHALATION (23:08)
[2021-02-13 23:09] VITALS: BP 146/100; PULSE 109; PULSE 111; RESP 18; RESP 20; O2SAT 93; O2SAT 95
[2021-02-13 23:30] LABS: Absolute Lymphocyte Count 1.55 X10^3/uL (0.83-4.51); Absolute Neutrophil Count 5.5 X10^3/uL (2.0-7.7); Basophil# 0.07 X10^3/uL; Basophil% 0.9 % (0-1); Eosinophil# 0.06 X10^3/uL; Eosinophils% 0.8 % (0-5); Hematocrit 52.9 % (40-54); Hemoglobin 15.5 g/dL (13.0-16.5); Lymphocyte # 1.55 X10^3/ul (0.83-4.51); Lymphocyte % 19.4 % (19-41); Mean Corp Hgb Conc 29.3 g/dL (32-36); Mean Corpuscular Hgb 27.8 pg (27.0-32.0); Mean Corpuscular Volume 94.8 fL (80-94); Mean Platelet Vol. 10.8 fl (6.2-12.0); Monocyte# 0.79 X10^3/uL; Monocyte% 9.9 % (0-10); NRBC Flagged by Analyzer 0.3 % (0-5); Neutrophil # 5.49 X10^3/uL (2.7-7.7); Neutrophil % 68.7 % (47-70); Platelet Count 268 K/mm3 (150-450); RBC Distribution Width CV 15.9 % (11.6-14.6); RBC Distribution Width SD 55.6 fl (35.1-43.9); Red Blood Count 5.58 M/mm3 (4.6-6.2)
--- NOTE | 2021-02-13 23:30 | RAD_ITS ---
STUDY: X-RAY CHEST REASON FOR EXAM: Male, 55 years old. shortness of breath after getting 2nd covid vaccine. TECHNIQUE: AP portable chest. COMPARISON: January 02, 2018. FINDINGS: No focal infiltrates or effusions. No pneumothorax. There is mild cardiac enlargement. Normal mediastinum and li. Normal visualized pulmonary arteries. Normal visualized aortic arch and descending thoracic aorta. Normal visualized thoracic spine. Normal visualized ribs, clavicles, and shoulders. There is no demonstrated abnormality of the visualized soft tissue structures of the upper abdomen. RAD/Chest 1 View (Portable) IMPRESSION: Mild cardiomegaly. Electronically Signed: Luis Campuzano MD at 0:43 EDT , Service support ,
[2021-02-13 23:43] LABS: D-Dimer Quantitative (DVT/PE) 1.42 FEU/ug/m (0.27-0.49)
[2021-02-13 23:44] LABS: Anion Gap 5 (5-15); BUN 23 mg/dL (7-18); BUN/Creat Ratio 15.2 RATIO (10-20); Calcium,Total 8.5 mg/dL (8.5-10.1); Chloride 98 mmol/L (98-107); Creatinine, Serum 1.51 mg/dL (0.70-1.30); EST Glomerular Filtration Rate 51 mL/min (>60); Est Glom Filt Rate - Afr Amer 62 mL/min (>60); Estimated Creatinine Clearance 60.67 ml/min; Glucose 170 mg/dL (74-106); Potassium 3.8 mmol/L (3.5-5.1); Sodium Level 139 mmol/L (136-145)
[2021-02-13 23:48] LABS: BNP,B-Type NATRIURETIC PEPTIDE 283.5 pg/mL (0-100)
--- NOTE | 2021-02-13 23:51 | EKG12_ITS ---
Test Reason : SOB Blood Pressure : / mmHG Vent. Rate : 117 BPM Atrial Rate : 131 BPM P-R Int : 152 ms QRS Dur : 160 ms QT Int : 386 ms P-R-T Axes : 000 264 016 degrees QTc Int : 538 ms Sinus tachycardia with frequent Premature ventricular complexes Right bundle branch block Septal infarct , age undetermined Inferior infarct , age undetermined Abnormal ECG Confirmed by CAMDEN MEDRANO, OSIRIS ([id number]), pictures editor ANDREW FERRARA ([id number]) on 02/16/2021 9:24:34 AM Referred By: ZAID Confirmed By:OSIRIS HANNAH MD
[2021-02-14] VITALS (22 sets, daily range): BP systolic 120–170; BP diastolic 60–107; PULSE 101–166; RESP 16–22; TEMP 36.1–36.7; O2SAT 90–98; BMI 39.2
[2021-02-14] MEDS: Metoprolol Tartrate 5 MG/5 ML Vial IV ×3 (02:30→17:27)
--- NOTE | 2021-02-14 03:34 | HP.PCM.HOS_ITS ---
[facility] - General General Date of Admission: 02/14/21 Chief Complaint: SHORTNESS OF BREATH HPI Narrative ALMITA MAHAN, is a 55 M with a significant history of HTN; COPD; MEREDITH; tobacco abuse and HTN who presents to the emergency department with progressively worsening shortness of breath that started about 3 weeks prior to presentation. Associated with symptoms is weakness. Patient has wheezes and productive cough of clear sputum which he thinks is no change from his baseline. At the emergency department when he was found to be in A. fib with RVR. He reports that sometime in 2019 he went into A. fib with RVR and was on life support for about 1 week. [facility] Medical History Alcohol abuse Angioedema of lips Atrial fibrillation CHF (congestive heart failure) Chronic hypoxemic respiratory failure COPD (chronic obstructive pulmonary disease) Dyslipidemia Dyspnea Hypertension MEREDITH treated with BiPAP Tobacco abuse Home Medications pravastatin 80 mg PO QHS 07/29/17 [History Last Taken Unknown] albuterol sulfate 90 mcg/actuation breath activated powder inhaler 2 puff INHALATION Q4H PRN #1 ea 10/25/17 [Rx Last Taken Unknown] famotidine 20 mg PO BID 01/05/18 [History Last Taken Unknown] folic acid 1 mg PO DAILY 01/05/18 [History Last Taken Unknown] metformin 500 mg PO BID 01/05/18 [History Last Taken Unknown] fluticasone fur. 100 mcg-umeclid 62.5 mcg-vilant 25 mcg inhalat.powder 1 inh INHALATION QDAY #60 ea 07/09/20 [Rx Last Taken Unknown] carvedilol 18.75 mg PO BID 02/14/21 [History Last Taken Unknown] rivaroxaban [Xarelto] 20 mg PO DAILY 02/14/21 [History Last Taken Unknown] spironolactone 25 mg PO BID 02/14/21 [History Last Taken Unknown] Allergy/AdvReac Type Severity Reaction Status Date / Time losartan AdvReac Angioedema Verified 02/13/21 22:05 Family History Other Diabetes Heart disease Surgical History Hx of tonsillectomy Social History Smoking Status: Heavy Smoker (>10/day) Tobacco: How many years used: 35 second hand exposure: No alcohol intake: current substance use type: does not use ROS ROS Narrative 12 point review of system is negative except as stated in HPI Vital Signs Vital Signs Vital Signs: 02/13/21 22:02 02/13/21 22:27 02/13/21 22:49 Temperature 97 F L Temperature Source Temporal Pulse Rate 76 117 H Respiratory Rate 18 20 H Respiratory Effort Short of Breath Blood Pressure 128/72 H 132/98 H Blood Pressure Mean 90 109 Pulse Ox 79 98 97 Oxygen Delivery Method Room Air Nasal Cannula Nasal Cannula Oxygen Flow Rate (L/min) 4 4 02/13/21 23:09 02/14/21 00:31 02/14/21 01:41 Temperature 97.3 F L Temperature Source Temporal Pulse Rate 109 H 119 H 108 H Respiratory Rate 20 H 22 H 18 Respiratory Effort Blood Pressure 146/100 H 156/107 H 156/94 H Blood Pressure Mean 115 123 114 Pulse Ox 93 97 97 Oxygen Delivery Method Nasal Cannula Nasal Cannula Nasal Cannula Oxygen Flow Rate (L/min) 4 4 4 02/14/21 02:07 02/14/21 03:11 Temperature 97.9 F 97.5 F L Temperature Source Temporal Temporal Pulse Rate 111 H 104 H Respiratory Rate 20 H 20 H Respiratory Effort Blood Pressure 170/93 H 156/104 H Blood Pressure Mean 118 121 Pulse Ox 96 97 Oxygen Delivery Method Nasal Cannula Nasal Cannula Oxygen Flow Rate (L/min) 4 3 Physical Exam Narrative Alert and oriented x3 Nontraumatic; normocephalic Lung clear to auscultate Heart sounds S1-S2. No murmur, gallop or rubs. Abdomen bowel sounds present soft, nontender nondistended Extremity without edema cyanosis or clubbing. Integumentary: Prabhu appearance Lab / Micro Data Result Diagrams: 02/13/21 22:16 02/13/21 22:16 Labs: Laboratory Results - last 24 hr 02/13/21 02/13/21 02/13/21 22:16 22:16 22:16 WBC 8.0 RBC 5.58 Hgb 15.5 Hct 52.9 MCV 94.8 H MCH 27.8 MCHC 29.3 L RDW Std Deviation 55.6 H RDW Coeff of Courtney 15.9 H Plt Count 268 MPV 10.8 Immature Gran % (Auto) 0.300 Neut % (Auto) 68.7 Lymph % (Auto) 19.4 [place] % (Auto) 9.9 Eos % (Auto) 0.8 Baso % (Auto) 0.9 Absolute Neuts (auto) 5.5 Absolute Lymphs (auto) 1.55 Nucleated RBC % 0.3 D-Dimer Quant (PE/DVT) 1.42 H* Sodium 139 Potassium 3.8 Chloride 98 Carbon Dioxide 36.0 H Anion Gap 5 BUN 23 H Creatinine 1.51 H Estim Creat Clear Calc 60.67 Est GFR (MDRD) Af Amer 62 Est GFR (MDRD) Non-Af 51 L BUN/Creatinine Ratio 15.2 Glucose 170 H Calcium 8.5 Troponin I 0.021 B-Natriuretic Peptide 02/13/21 22:16 WBC RBC Hgb Hct MCV MCH MCHC RDW Std Deviation RDW Coeff of Courtney Plt Count MPV Immature Gran % (Auto) Neut % (Auto) Lymph % (Auto) [place] % (Auto) Eos % (Auto) Baso % (Auto) Absolute Neuts (auto) Absolute Lymphs (auto) Nucleated RBC % D-Dimer Quant (PE/DVT) Sodium Potassium Chloride Carbon Dioxide Anion Gap BUN Creatinine Estim Creat Clear Calc Est GFR (MDRD) Af Amer Est GFR (MDRD) Non-Af BUN/Creatinine Ratio Glucose Calcium Troponin I B-Natriuretic Peptide 283.5 H Radiology Impression Chest X-Ray 02/13/21 23:30 IMPRESSION: Mild cardiomegaly. Electronically Signed: Luis Campuzano MD at 0:43 EDT , Service support , Chest CTA 02/14/21 23:53 IMPRESSION: No pulmonary embolus or thoracic aortic dissection. Mild cardiomegaly. Mildly enlarged mediastinal lymph node. Left upper lobe subsegmental atelectasis or less likely pneumonia. Electronically Signed: Luis Campuzano MD at 1:28 EDT , Service support , Assessment & Plan Assessment/Plan (1) Atrial fibrillation with rapid ventricular response: (2) Alcohol abuse: (3) Tobacco abuse: (4) LEONARDA (acute kidney injury): PLAN: Atrial fibrillation with rapid ventricular response Place on PCU on telemetry EKG showed atrial fibrillation with rates of 109 to one teens. ED doctor reported that while the patient room patient ventricular rate was in the 130s. At the time of hospital examination ventricular rate was 110 to 120s. Received metoprolol IV bolus at the emergency department. Will continue Coreg. Metoprolol IV as needed ordered for ventricular rate of more than 120 Serial cardiac enzymes Last echocardiogram on file was in 2018. Echocardiogram at that time showed estimated ejection fraction of 65%. Mild concentric left ventricular hypertrophy. Normal diastolic function for age. Right ventricle systolic pressure was 27 mmHg. Obtain echo Xarelto continued Potassium is 3.8. Optimize potassium to keep potassium of at least 4. Potassium chloride 20 mEq given. Check TSH Impression of Chest x-ray by radiology: Mild cardiomegaly. Ultra chest x-ray image was independently interpreted. X-ray with cardiomegaly and diffuse opacities but unchanged from previous. Impression of chest CT by radiologist: No pulmonary embolus or thoracic aortic dissection. Mild cardiomegaly. Mildly enlarged mediastinal lymph node. Left upper lobe subsegmental atelectasis or less likely pneumonia. BNP mildly elevated at 283.5. LEONARDA His creatinine on presentation was 1.51. His creatinine on file in 2018 was 0.94-1.16. Will avoid any IV fluids or Lasix at this time. We will trend BMP. Continue spironolactone. COPD With moderate wheezes but patient report that wheezes is unchanged. With chronic productive cough. Continue home inhalers. [id number] DuoNeb ordered. Of note patient is at risk from increase of ventricular rate in the setting of bronchodilators. Diabetes mellitus Patient with mild hyperglycemia on presentation continued. Hold metformin Accu-Chek QA CHS with correction scale insulin ordered. Hypertension Blood pressure is not within goal Carvedilol and Aldactone continued. Trend blood pressure and adjust blood pressure medications. Alcohol abuse History of alcohol abuse on file. However patient denies excessive alcohol intake. He reported that at times he takes whiskey. He is sure that if he does not drink for about 2 or 3 days he would not withdraw. Clinical monitoring. Tobacco abuse Consult Nicotine patch prescribed Obstructive sleep apnea Reports intolerant to CPAP or BiPAP. Oxygen per nasal cannula to maintain oxygen saturation to at least 92% DVT prophylaxis Not indicated since patient is on Xarelto. Xarelto continued. Multi Select Codes Visit Charges Visit Charges: 49178 Init Hosp L3
[2021-02-14] MEDS: Potassium Chloride Oral Tablet 20 MEQ PO (04:10)
--- NOTE | 2021-02-14 04:45 | ECHOCS_ITS ---
Reason For Study: Afib/Flutter Procedure This was a 2D Doppler, Color Flow transthoracic echocardiogram. The study was technically difficult. The study was technically limited. Contrast injection was performed. Exam performed portable in patient room. Left Ventricle Normal LV size. Left ventricular systolic function is normal. The estimated ejection fraction is 55 %. No regional wall motion abnormalities noted. Right Ventricle Mildly dilated right ventricle. Mild global right ventricular systolic dysfunction. Atria The left atrium is severely enlarged. Normal right atrium. Mitral Valve Mitral valve not well visualized. Tricuspid Valve The tricuspid valve is not well visualized. Mild (1+) tricuspid valve insufficiency. Pulmonary artery systolic pressure is 44 mmHg. Aortic Valve The aortic valve is not well visualized. Pericardium/Pleural No pericardial effusion. Medication Diluted definity 6ml given slow IV push to enhance endocardial definition. MMode/2D Measurements & Calculations LVIDd: 4.6 cm IVSd: 1.5 cm LA dimension: 4.9 cm LVIDs: 3.5 cm LVPWd: 1.5 cm FS: 25.3 % LAV(MOD-sp4): 112.9 ml LA A4 area: 32.8 cm2 Doppler Measurements & Calculations MV E max jassi: 111.5 cm/sec Ao V2 max: 174.8 cm/sec LV V1 max: 102.2 cm/sec Ao max P.2 mmHg LV V1 max P.2 mmHg PA V2 max: 79.0 cm/sec TR max jassi: 320.9 cm/sec TR max P.2 mmHg ECHO/Echo Complete W/ Contrast Interpretation Summary Normal LV size. Left ventricular systolic function is normal. The estimated ejection fraction is 55 %. Mildly dilated right ventricle. Pulmonary artery systolic pressure is 44 mmHg. Contrast injection was performed. Ordering Physician: Pj Jiménez Referring Physician: Thompson Ramos Performed By: Ady Vo RCS
[2021-02-14 05:28] LABS: Absolute Neutrophil Count 5.1 X10^3/uL (2.0-7.7); Basophil# 0.05 X10^3/uL; Basophil% 0.8 % (0-1); Eosinophil# 0.02 X10^3/uL; Eosinophils% 0.3 % (0-5); Hematocrit 48.1 % (40-54); Mean Corp Hgb Conc 29.1 g/dL (32-36); Mean Corpuscular Hgb 27.6 pg (27.0-32.0); Mean Corpuscular Volume 94.9 fL (80-94); Mean Platelet Vol. 10.6 fl (6.2-12.0); Monocyte# 0.65 X10^3/uL; Monocyte% 9.8 % (0-10); NRBC Flagged by Analyzer 0 % (0-5); Neutrophil % 76.8 % (47-70); Platelet Count 217 K/mm3 (150-450); RBC Distribution Width CV 16.2 % (11.6-14.6); RBC Distribution Width SD 56.3 fl (35.1-43.9); Red Blood Count 5.07 M/mm3 (4.6-6.2); White Blood Count 6.6 K/mm3 (4.4-11.0)
[2021-02-14 05:53] LABS: Anion Gap 5 (5-15); BUN 20 mg/dL (7-18); BUN/Creat Ratio 16.1 RATIO (10-20); Calcium,Total 8.2 mg/dL (8.5-10.1); Chloride 99 mmol/L (98-107); Creatinine, Serum 1.24 mg/dL (0.70-1.30); EST Glomerular Filtration Rate 64 mL/min (>60); Est Glom Filt Rate - Afr Amer 78 mL/min (>60); Estimated Creatinine Clearance 73.88 ml/min; Glucose 129 mg/dL (74-106); Magnesium 1.8 mg/dL (1.6-2.6); Potassium 4.5 mmol/L (3.5-5.1); Sodium Level 140 mmol/L (136-145); Thyroid Stim Hormone (TSH) 0.97 uIU/mL (0.358-3.74)
[2021-02-14 06:46] LABS: Bedside Glucose 128 mg/dL (70-110)
[2021-02-14] MEDS: Budesonide Respules 0.5 MG/2 ML AMPUL.NEB. INHALATION (06:49)
[2021-02-14] MEDS: Ipratropium/Albuterol Sulfate 3 ML AMPUL.NEB INHALATION (06:49)
[2021-02-14] MEDS: Famotidine 20 MG Tablet PO ×2 (07:43→21:42)
[2021-02-14] MEDS: Spironolactone 25 MG Tablet PO ×2 (07:43→21:42)
[2021-02-14] MEDS: Carvedilol 6.25 MG Tablet 18.75 MG PO ×2 (07:44→21:42)
[2021-02-14] MEDS: Folic Acid 1 MG Tablet PO (07:44)
[2021-02-14] MEDS: 0.9% Saline Lock 10 ML Syringe IV ×2 (08:28→10:20)
[2021-02-14] MEDS: Furosemide 40 MG/4 ML Vial IV ×2 (10:20→17:29)
--- NOTE | 2021-02-14 11:13 | PCM.CONS.C ---
Assessment & Plan Assessment/Plan (1) Alcohol abuse: (2) Atrial fibrillation with rapid ventricular response: PLAN: 55-year-old patient, admitted with symptoms shortness of breath and has abnormal EKG with underlying right bundle branch block, atrial flutter variable ventricular rate/A. fib. 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 Plan and recommendations; 1. I reviewed the current medication will continue the current treatment patient currently on Xarelto 2. In addition to carvedilol, Aldactone and Lasix 3. Patient has a prior history of cardioversion/DCCV 4. We will evaluate with echocardiogram to assess his LV function 5. If he is stable clinically with better controlled ventricular rate to follow-up with his primary print controller. (3) Tobacco abuse: (4) Chronic hypoxemic respiratory failure: (5) Dyspnea: QUALIFIERS: Dyspnea type: shortness of breath Qualified Code(s): R06.02 - Shortness of breath; R06.00 - Dyspnea, unspecified; R06.01 - Orthopnea (6) CHF (congestive heart failure): QUALIFIERS: Heart failure type: diastolic Heart failure chronicity: chronic Qualified Code(s): I50.32 - Chronic diastolic (congestive) heart failure (7) Hypertension: QUALIFIERS: Hypertension type: essential hypertension (8) LEONARDA (acute kidney injury): HPI Consult Data Date of Consult: 02/14/21 HPI Narrative Reason for Consultation: Patient with A. fib RVR/Atrial flutter/RBBB HPI Narrative: ALMITA MAHAN, is a 55 M who presents [facility] Medical History Alcohol abuse Angioedema of lips Atrial fibrillation CHF (congestive heart failure) Chronic hypoxemic respiratory failure COPD (chronic obstructive pulmonary disease) Dyslipidemia Dyspnea Hypertension MEREDITH treated with BiPAP Tobacco abuse Home Medications pravastatin 80 mg PO QHS 07/29/17 [History Last Taken Unknown] albuterol sulfate 90 mcg/actuation breath activated powder inhaler 2 puff INHALATION Q4H PRN #1 ea 10/25/17 [Rx Last Taken Unknown] famotidine 20 mg PO BID 01/05/18 [History Last Taken Unknown] folic acid 1 mg PO DAILY 01/05/18 [History Last Taken Unknown] metformin 500 mg PO BID 01/05/18 [History Last Taken Unknown] fluticasone fur. 100 mcg-umeclid 62.5 mcg-vilant 25 mcg inhalat.powder 1 inh INHALATION QDAY #60 ea 07/09/20 [Rx Last Taken Unknown] carvedilol 18.75 mg PO BID 02/14/21 [History Last Taken Unknown] rivaroxaban [Xarelto] 20 mg PO DAILY 02/14/21 [History Last Taken Unknown] spironolactone 25 mg PO BID 02/14/21 [History Last Taken Unknown] Allergy/AdvReac Type Severity Reaction Status Date / Time losartan AdvReac Angioedema Verified 02/13/21 22:05 Family History Other Diabetes Heart disease Surgical History Hx of tonsillectomy Social History Smoking Status: Heavy Smoker (>10/day) Tobacco: How many years used: 35 second hand exposure: No alcohol intake: current substance use type: does not use ROS ROS Narrative 12 point review of system is negative except as stated in HPI Physical Exam Narrative Seen at bedside with the nursing staff Sitting out in a chair Does not have any symptoms of chest pain. Shortness of breath on exertion Cardiac examination underlying rhythm is A. fib, RVR There is no murmur Chest exam diminished air entry bilaterally with mild bilateral inspiratory rales. Const alert and oriented x3 Orientation / Consciousness: awake HEENT hearing grossly normal bilaterally Eyes PERRL Neck supple Chest inspection of chest normal Resp Auscultation: crackles and diminished lung sounds Cardio Cardio Narrative: Regular cardiac rhythm with underlying atrial fibrillation/atrial flutter Rhythm: abnormal rhythm Skin General Skin Exam: ecchymosis Psych mental status grossly normal
--- NOTE | 2021-02-14 13:04 | PN.HOSP_ITS ---
Subjective Subjective Feels short of breath when his afib acts up. Objective Data Objective Data Vital Signs: Vital Signs Temp Pulse Resp BP Pulse Ox 36.1 C L 114 H 18 134/79 H 92 02/14/21 08:00 02/14/21 08:00 02/14/21 08:00 02/14/21 08:00 02/14/21 08:00 Oxygen Flow Rate (L/min) 3 Oxygen Delivery Method Nasal Cannula Weight: 131.2 kg Body Mass Index (BMI) 39.2 Intake & Output: Intake and Output for Last 24 Hours 02/12/21 02/13/21 02/14/21 23:59 23:59 23:59 Intake Total 500 / 500 Output Total 350 / 350 Balance 150 / 150 Lab / Micro Data Attestation: I reviewed the patient's lab results. Result Diagrams: 02/14/21 05:08 02/14/21 05:08 Labs: Laboratory Results - last 24 hr 02/13/21 02/13/21 02/13/21 22:16 22:16 22:16 WBC 8.0 RBC 5.58 Hgb 15.5 Hct 52.9 MCV 94.8 H MCH 27.8 MCHC 29.3 L RDW Std Deviation 55.6 H RDW Coeff of Courtney 15.9 H Plt Count 268 MPV 10.8 Immature Gran % (Auto) 0.300 Neut % (Auto) 68.7 Lymph % (Auto) 19.4 Ashley % (Auto) 9.9 Eos % (Auto) 0.8 Baso % (Auto) 0.9 Absolute Neuts (auto) 5.5 Absolute Lymphs (auto) 1.55 Nucleated RBC % 0.3 D-Dimer Quant (PE/DVT) 1.42 H* Sodium 139 Potassium 3.8 Chloride 98 Carbon Dioxide 36.0 H Anion Gap 5 BUN 23 H Creatinine 1.51 H Estim Creat Clear Calc 60.67 Est GFR (MDRD) Af Amer 62 Est GFR (MDRD) Non-Af 51 L BUN/Creatinine Ratio 15.2 Glucose 170 H Calcium 8.5 Magnesium Troponin I 0.021 B-Natriuretic Peptide TSH POC Glucose 02/13/21 02/14/21 02/14/21 22:16 05:08 05:08 WBC 6.6 RBC 5.07 Hgb 14.0 Hct 48.1 MCV 94.9 H MCH 27.6 MCHC 29.1 L RDW Std Deviation 56.3 H RDW Coeff of Courtney 16.2 H Plt Count 217 MPV 10.6 Immature Gran % (Auto) 0.300 Neut % (Auto) 76.8 H Lymph % (Auto) 12.0 L Ashley % (Auto) 9.8 Eos % (Auto) 0.3 Baso % (Auto) 0.8 Absolute Neuts (auto) 5.1 Absolute Lymphs (auto) 0.80 L Nucleated RBC % 0 D-Dimer Quant (PE/DVT) Sodium 140 Potassium 4.5 Chloride 99 Carbon Dioxide 36.0 H Anion Gap 5 BUN 20 H Creatinine 1.24 Estim Creat Clear Calc 73.88 Est GFR (MDRD) Af Amer 78 Est GFR (MDRD) Non-Af 64 BUN/Creatinine Ratio 16.1 Glucose 129 H Calcium 8.2 L Magnesium 1.8 Troponin I < 0.015 B-Natriuretic Peptide 283.5 H TSH 0.97 POC Glucose 02/14/21 02/14/21 02/14/21 06:34 07:42 11:04 WBC RBC Hgb Hct MCV MCH MCHC RDW Std Deviation RDW Coeff of Courtney Plt Count MPV Immature Gran % (Auto) Neut % (Auto) Lymph % (Auto) Ashley % (Auto) Eos % (Auto) Baso % (Auto) Absolute Neuts (auto) Absolute Lymphs (auto) Nucleated RBC % D-Dimer Quant (PE/DVT) Sodium Potassium Chloride Carbon Dioxide Anion Gap BUN Creatinine Estim Creat Clear Calc Est GFR (MDRD) Af Amer Est GFR (MDRD) Non-Af BUN/Creatinine Ratio Glucose Calcium Magnesium Troponin I 0.027 0.019 B-Natriuretic Peptide TSH POC Glucose 128 H Radiography Diagnostic Testing: Radiology Impression Chest X-Ray 02/13/21 23:30 IMPRESSION: Mild cardiomegaly. Electronically Signed: Luis Campuzano MD at 0:43 EDT , Service support , Chest CTA 02/14/21 23:53 IMPRESSION: No pulmonary embolus or thoracic aortic dissection. Mild cardiomegaly. Mildly enlarged mediastinal lymph node. Left upper lobe subsegmental atelectasis or less likely pneumonia. Electronically Signed: Luis Campuzano MD at 1:28 EDT , Service support , Physical Exam Const alert Resp normal respiratory effort and clear to auscultation bilaterally Auscultation: wheezes Cardio regular rate, regular rhythm, S1 normal heart sound and S2 normal heart sound GI normal to inspection, nondistended, normoactive bowel sounds, non-tender and non-distended Extremity General Extremity: edema Skin Skin Narrative: mottled discoloration on abdomen. Neuro Sensorium / Orientation: awake and alert Psych affect normal Assessment & Plan Assessment/Plan (1) Atrial fibrillation with rapid ventricular response: (2) Alcohol abuse: (3) Tobacco abuse: (4) LEONARDA (acute kidney injury): PLAN: Atrial fibrillation with rapid ventricular response * Appears to be symptomatic, however may be a component of CHF contributing to his dyspnea * On Carvedilol 18.75 BID + PRN metoprolol * Check echo * Cardiology consult * start furosemide LEONARDA * resolved * His creatinine on presentation was 1.51. His creatinine on file in 2018 was 0.94-1.16. COPD * Appears stable * With moderate wheezes but patient report that wheezes is unchanged. With chronic productive cough. Continue home inhalers. [id number]-hacud DuoNeb ordered. Of note patient is at risk from increase of ventricular rate in the setting of bronchodilators. Diabetes mellitus Patient with mild hyperglycemia on presentation continued. Hold metformin Accu-Chek QA CHS with correction scale insulin ordered. Hypertension Blood pressure is not within goal Carvedilol and Aldactone continued. Trend blood pressure and adjust blood pressure medications. Alcohol abuse History of alcohol abuse on file. However patient denies excessive alcohol intake. He reported that at times he takes whiskey. He is sure that if he does not drink for about 2 or 3 days he would not withdraw. Clinical monitoring. Tobacco abuse Consult Nicotine patch prescribed Obstructive sleep apnea Reports intolerant to CPAP or BiPAP. Oxygen per nasal cannula to maintain oxygen saturation to at least 92% DVT prophylaxis Not indicated since patient is on Xarelto. Xarelto continued. Visit Charges Inpatient E&M: 59889 Subs Hosp L2
[2021-02-14 13:51] LABS: Bedside Glucose 123 mg/dL (70-110)
[2021-02-14 16:25] LABS: Bedside Glucose 114 mg/dL (70-110)
[2021-02-14] MEDS: Rivaroxaban 20 MG Tablet PO (17:27)
[2021-02-14] MEDS: dilTIAZem CD 120 MG Capsule PO (19:56)
[2021-02-14] MEDS: Pravastatin 80 MG Tablet PO (21:42)
[2021-02-14 21:51] LABS: Bedside Glucose 156 mg/dL (70-110)
--- NOTE | 2021-02-14 23:53 | CT_ITS ---
STUDY: CTA CHEST REASON FOR EXAM: Male, 55 years old. Shortness of breath, elevated d-dimer, tachycardia. RADIATION DOSAGE (If Supplied By Facility): CTDIvol = ( 15.04 ) mGy, DLP = ( 561.62 ) mGycm TECHNIQUE: The examination was performed with the intravenous administration of IV 100mL Isovue-370. Post-processing of the angiographic images was performed, with multiplanar reformation and maximum intensity projections.. Individualized dose optimization techniques were used for this CT. COMPARISON: August 01, 2017. FINDINGS: Normal enhancement of the main pulmonary artery and right and left pulmonary arteries. Normal enhancement of the bilateral peripheral pulmonary arteries. There is no demonstrated pulmonary embolism. Normal thoracic aorta and visualized great vessels. There is no demonstrated aortic dissection. Mild cardiomegaly. No pericardial effusion. 1.8 x 1.1 cm right paratracheal lymph node. Normal hilar regions. Normal visualized trachea and bronchi. Hazy density posterior aspect left upper lobe probably representing subsegmental atelectasis or less likely pneumonia. Scattered subsegmental atelectasis bilaterally. No focal infiltrates or effusions. No pneumothorax. Normal pleura. Normal chest wall structures. Mild degenerative changes of the thoracic spine. Normal visualized upper abdomen. CT/CTA Chest W/WO Contrast IMPRESSION: No pulmonary embolus or thoracic aortic dissection. Mild cardiomegaly. Mildly enlarged mediastinal lymph node. Left upper lobe subsegmental atelectasis or less likely pneumonia. Electronically Signed: Luis Campuzano MD at 1:28 EDT , Service support ,
[2021-02-15] VITALS (10 sets, daily range): BP systolic 109–134; BP diastolic 66–80; PULSE 98–110; RESP 16–30; TEMP 36.2–37.1; O2SAT 76–98
[2021-02-15 06:46] LABS: Anion Gap -1 (5-15); BUN 19 mg/dL (7-18); BUN/Creat Ratio 16.8 RATIO (10-20); Calcium,Total 8.6 mg/dL (8.5-10.1); Chloride 99 mmol/L (98-107); Creatinine, Serum 1.13 mg/dL (0.70-1.30); EST Glomerular Filtration Rate 71 mL/min (>60); Est Glom Filt Rate - Afr Amer 86 mL/min (>60); Estimated Creatinine Clearance 81.07 ml/min; Glucose 141 mg/dL (74-106); Potassium 4.3 mmol/L (3.5-5.1); Sodium Level 139 mmol/L (136-145)
[2021-02-15 07:10] LABS: Bedside Glucose 137 mg/dL (70-110)
[2021-02-15] MEDS: Furosemide 40 MG/4 ML Vial IV ×2 (09:10→16:02)
[2021-02-15] MEDS: Spironolactone 25 MG Tablet PO ×2 (09:10→21:47)
[2021-02-15] MEDS: Folic Acid 1 MG Tablet PO (09:11)
[2021-02-15] MEDS: Famotidine 20 MG Tablet PO ×2 (09:11→21:46)
[2021-02-15] MEDS: Carvedilol 6.25 MG Tablet 18.75 MG PO ×2 (09:11→21:46)
--- NOTE | 2021-02-15 09:56 | PCM.PN.HOSP ---
Subjective Subjective Patient is a 55-year-old gentleman with multiple comorbidities including hypertension, COPD obstructive sleep apnea who presented with a 3-week history of progressive shortness of breath. Patient was found to be in A. fib with RVR. He was also found to be in acute congestive heart failure admitted to a monitored bed for further management Patient seen still requiring high flow oxygen attempt to wean patient oxygen from 6 L to 4 L unsuccessful Objective Data Objective Data Vital Signs: Vital Signs Temp Pulse Resp BP Pulse Ox 97.2 F L 98 30 H 123/73 H 92 02/15/21 06:34 02/15/21 07:53 02/15/21 06:34 02/15/21 06:34 02/15/21 06:34 Oxygen Flow Rate (L/min) 5 Oxygen Delivery Method Nasal Cannula Weight: 131.2 kg Body Mass Index (BMI) 39.2 Intake & Output: Intake and Output for Last 24 Hours 02/13/21 02/14/21 02/15/21 23:59 23:59 23:59 Intake Total 800 / 800 Output Total 3850 / 3850 Balance -3050 / -3050 Lab / Micro Data Result Diagrams: 02/14/21 05:08 02/15/21 05:45 Labs: Laboratory Results - last 24 hr 02/14/21 02/14/21 02/14/21 11:04 12:19 16:15 Sodium Potassium Chloride Carbon Dioxide Anion Gap BUN Creatinine Estim Creat Clear Calc Est GFR (MDRD) Af Amer Est GFR (MDRD) Non-Af BUN/Creatinine Ratio Glucose Calcium Troponin I 0.019 POC Glucose 123 H 114 H 02/14/21 02/15/21 02/15/21 21:41 05:45 06:22 Sodium 139 Potassium 4.3 Chloride 99 Carbon Dioxide 41.0 H Anion Gap -1 L BUN 19 H Creatinine 1.13 Estim Creat Clear Calc 81.07 Est GFR (MDRD) Af Amer 86 Est GFR (MDRD) Non-Af 71 BUN/Creatinine Ratio 16.8 Glucose 141 H Calcium 8.6 Troponin I POC Glucose 156 H 137 H Physical Exam Narrative GENERAL: Dyspneic at rest HEENT: Atraumatic; EYES; Anicteric, Normal Conjunctiva NECK; supple, normal thyroid, RESPIRATORY: Diminished to auscultation CARDIOVASCULAR: Regular S1 S2, GI: soft, normoactive bowel sounds, : No Renal angle tenderness; EXTREMITIES: edema, no clubbing, MUSCULOSKELETAL: no muscle waisting NEURO: Awake; no lateralizing signs. SKIN: No Rash PSYCH; Flat affect Assessment & Plan Assessment/Plan (1) Atrial fibrillation with rapid ventricular response: (2) CHF (congestive heart failure): QUALIFIERS: Heart failure type: diastolic Heart failure chronicity: chronic Qualified Code(s): I50.32 - Chronic diastolic (congestive) heart failure PLAN: Patient is a 55-year-old gentleman with multiple comorbidities including hypertension, COPD obstructive sleep apnea who presented with a 3-week history of progressive shortness of breath. Patient was found to be in A. fib with RVR. He was also found to be in acute congestive heart failure admitted to a monitored bed for further management 1. A. fib with RVR -Admitted to monitored bed patient managed with beta-blockers rates relatively well controlled. 2D echo was ordered awaiting results. Already on systemic anticoagulation with Xarelto 2. Acute congestive heart failure suspected preserved ejection fraction ?Admitted to monitored bed managed with Lasix echo ordered for EF assessment 3. Acute kidney injury ?Creatinine on presentation was 1.51 improved with diuresis. Creatinine down to 1.13 as of 02/15/2021 4. Acute respiratory insufficiency - patient remains on high flow oxygen this is a result of patient's underlying congestive heart failure in addition to his obesity hypoventilation syndrome plus COPD 5. COPD ?Not in exacerbation did continue with home aerosol treatment 6. Morbid obesity - With a BMI of 39.3 patient was counseled on weight reduction 7. Diabetes mellitus type II -patient's oral hypoglycemics held. Placed on long acting insulin, Accu-Cheks a.c. and at bedtime and covered with sliding scale insulin 8. Hypertension - Blood pressure controlled, home medications continued with dose adjustment as needed 9. Obstructive sleep apnea ?Patient apparently has not tolerated PAP therapy 10. Tobacco dependence - Counseled on cessation, offered nicotine patch for tobacco cravings 11. GERD ?Patient is on H2 blockers 12. Dyslipidemia -Patient is on statin therapy, continued at home dose 13. DVT prophylaxis Not indicated since patient is on Xarelto. Visit Charges Inpatient E&M: 17358 Subs Hosp L2
[2021-02-15 12:15] LABS: Bedside Glucose 171 mg/dL (70-110)
--- NOTE | 2021-02-15 12:51 | CASEMGMT ---
LUIS M CM in to pt room. Pt provided list of local in network DME companies should pt need O2 at dc. Pt chose [facility]. LUIS M YU to follow for O2 needs.
--- NOTE | 2021-02-15 14:30 | CASEMGMT ---
LW/POA forms both scanned into summary tab of [facility]. Shannon Steward is listed as pt's medical POA. SHAGUFTA Ryan
[2021-02-15] MEDS: Rivaroxaban 20 MG Tablet PO (16:02)
[2021-02-15 16:21] LABS: Bedside Glucose 141 mg/dL (70-110)
[2021-02-15] MEDS: Pravastatin 80 MG Tablet PO (21:46)
[2021-02-15 21:50] LABS: Bedside Glucose 163 mg/dL (70-110)
[2021-02-16] VITALS (8 sets, daily range): BP systolic 114; BP diastolic 72; PULSE 103–112; RESP 18; TEMP 36.7–36.9; O2SAT 78–94
[2021-02-16] MEDS: Acetaminophen 325 MG Tablet 650 MG PO (04:11)
[2021-02-16 05:38] LABS: Absolute Lymphocyte Count 0.67 X10^3/uL (0.83-4.51); Absolute Neutrophil Count 7.6 X10^3/uL (2.0-7.7); Basophil# 0.05 X10^3/uL; Basophil% 0.5 % (0-1); Eosinophil# 0.01 X10^3/uL; Eosinophils% 0.1 % (0-5); Hemoglobin 13.6 g/dL (13.0-16.5); Lymphocyte # 0.67 X10^3/ul (0.83-4.51); Lymphocyte % 7.3 % (19-41); Mean Corp Hgb Conc 28.3 g/dL (32-36); Mean Corpuscular Hgb 27.4 pg (27.0-32.0); Mean Corpuscular Volume 96.6 fL (80-94); Mean Platelet Vol. 10.1 fl (6.2-12.0); Monocyte% 9.8 % (0-10); NRBC Flagged by Analyzer 0 % (0-5); Neutrophil # 7.58 X10^3/uL (2.7-7.7); Neutrophil % 82.1 % (47-70); Platelet Count 195 K/mm3 (150-450); RBC Distribution Width CV 15.9 % (11.6-14.6); RBC Distribution Width SD 56.8 fl (35.1-43.9); Red Blood Count 4.97 M/mm3 (4.6-6.2); White Blood Count 9.2 K/mm3 (4.4-11.0)
[2021-02-16 06:05] LABS: Anion Gap 0 (5-15); BUN 17 mg/dL (7-18); BUN/Creat Ratio 16.7 RATIO (10-20); Calcium,Total 8.5 mg/dL (8.5-10.1); Chloride 92 mmol/L (98-107); Creatinine, Serum 1.02 mg/dL (0.70-1.30); EST Glomerular Filtration Rate 80 mL/min (>60); Est Glom Filt Rate - Afr Amer 97 mL/min (>60); Estimated Creatinine Clearance 89.81 ml/min; Glucose 141 mg/dL (74-106); Potassium 4.7 mmol/L (3.5-5.1); Sodium Level 135 mmol/L (136-145)
[2021-02-16 06:50] LABS: Bedside Glucose 134 mg/dL (70-110)
[2021-02-16] MEDS: Famotidine 20 MG Tablet PO (08:16)
[2021-02-16] MEDS: Folic Acid 1 MG Tablet PO (08:16)
[2021-02-16] MEDS: Carvedilol 6.25 MG Tablet 18.75 MG PO (08:16)
[2021-02-16] MEDS: Furosemide 40 MG/4 ML Vial IV (08:32)
[2021-02-16] MEDS: Spironolactone 25 MG Tablet PO (08:33)
[2021-02-16] MEDS: Albuterol 2.5 MG/3 ML VIAL.NEB. INHALATION (08:45)
--- NOTE | 2021-02-16 10:33 | CASEMGMT ---
Referral faxed to [facility] for O2 needs at home. TC to confirm receipt with oumar Delaney to be delivered to pt room.
--- NOTE | 2021-02-16 11:41 | PCM.DC ---
Discharge Instructions Diet Discharge Diet: Low fat / Low cholesterol, 1800 Calorie Control Diet, 8 Cup Fluid Restriction and 2000 mg Sodium Diet Activity Discharge Activity: Return to Normal Activity Dressing / Incision Call your doctor if you observe: Fever of 101 or Higher, Shortness of breath, Fainting spells and Chest pain Follow Up Care Test Results: Test results from this visit will be discussed in further detail at your follow-up appointment, if applicable. Discharge Plan Admission Admit Date/Time: 02/14/21 03:34 Attending Provider: Nicola Lowry Primary Care Provider: Thompson Ramos Consulting Providers: Anna Ann Discharge Orders/Prescriptions Prescriptions: New furosemide [Lasix] 40 mg tablet 40 mg PO BID Qty: 60 RF: 0 Continued albuterol sulfate [ProAir RespiClick] 90 mcg/actuation aerosol powdr breath activated 2 puff INHALATION Q4H PRN (Reason: shortness of breath or wheezing) Qty: 1 RF: 6 pravastatin 80 MG tablet 80 mg PO QHS RF: 0 metformin 500 MG tablet 500 mg PO BID RF: 0 famotidine 20 MG tablet 20 mg PO BID RF: 0 folic acid 1 MG tablet 1 mg PO DAILY RF: 0 carvedilol 6.25 mg tablet 18.75 mg PO BID RF: 0 spironolactone 25 mg tablet 25 mg PO BID RF: 0 Xarelto 20 mg tablet 20 mg PO DAILY RF: 0 Trelegy Ellipta 100-62.5-25 mcg blister with device 1 inh INHALATION QDAY Qty: 60 RF: 6 Referrals / Follow Up: Thompson Ramos DO [Primary Care Provider] - In 1 Week Disposition Disposition (needs filled in before D/C Order can be placed): Home, self care
--- NOTE | 2021-02-16 11:44 | DS.PCM_ITS ---
Providers Date of Admission: 02/14/21 Primary Care Physician: Dr. Thompson Ramos, Consultations 02/14/21 08:34 Consult: Cardiology Routine Consulting Provider: Anna Ann Reason for Consult: afib EMERGENT Consult: No MD Notified: Yes Date Notified:: 02/14/21 Time Notified: 08:38 Method of Notification: Text Reason For Visit: AFIB WITH RVR Diagnosis Discharge Diagnosis (1) Atrial fibrillation with rapid ventricular response: Status: Acute Code(s): I48.91 - Unspecified atrial fibrillation (2) CHF (congestive heart failure): Status: Chronic Code(s): I50.9 - Heart failure, unspecified Qualifiers: Heart failure chronicity: chronic Heart failure type: diastolic Qualified Code(s): I50.32 - Chronic diastolic (congestive) heart failure Medications at Discharge Home Medications pravastatin 80 mg PO QHS 07/29/17 albuterol sulfate 90 mcg/actuation breath activated powder inhaler 2 puff INHALATION Q4H PRN #1 ea 10/25/17 famotidine 20 mg PO BID 01/05/18 folic acid 1 mg PO DAILY 01/05/18 metformin 500 mg PO BID 01/05/18 fluticasone fur. 100 mcg-umeclid 62.5 mcg-vilant 25 mcg inhalat.powder 1 inh INHALATION QDAY #60 ea 07/09/20 Xarelto 20 mg PO DAILY 02/14/21 carvedilol 18.75 mg PO BID 02/14/21 spironolactone 25 mg PO BID 02/14/21 furosemide [Lasix] 40 mg PO BID #60 tab 02/16/21 Hospital Course Summary of Care Provided Minutes Spent on Discharge: 35 Hospital Course: ?Patient is a 55-year-old gentleman with multiple comorbidities including hypertension, COPD obstructive sleep apnea who presented with a 3- week history of progressive shortness of breath.? Patient was found to be in A. fib with RVR.? He was also found to be in acute congestive heart failure admitted to a monitored bed for further management 1.? A. fib with RVR -Admitted to monitored bed patient managed with beta-blockers rates relatively well controlled.? 2D echo was ordered awaiting results.? Already on systemic anticoagulation with Xarelto 2.? Acute congestive heart failure suspected preserved ejection fraction ?Admitted to monitored bed managed with Lasix echo ordered for EF assessment -2D echo demonstrated EF of 55% consistent with congestive heart failure with preserved ejection fraction. Patient was discharged on Lasix 3.? Acute kidney injury ?Creatinine on presentation was 1.51 improved with diuresis.? Creatinine down to 1.13 as of 02/15/2021 4.? Acute respiratory insufficiency - patient remains on high flow oxygen this is a result of patient's underlying congestive heart failure in addition to his obesity hypoventilation syndrome plus COPD -Patient was assessed for home oxygen which he did qualify he will need portability since is active both in the community as well as at home 5.? COPD ?Not in exacerbation did continue with home aerosol treatment 6.? Morbid obesity - With a BMI of 39.3 patient was counseled on weight reduction 7. Diabetes mellitus type II -patient's oral hypoglycemics held. Placed on long acting insulin, Accu-Cheks a.c. and at bedtime and covered with sliding scale insulin 8.? Hypertension - Blood pressure controlled, home medications continued with dose adjustment as needed 9.? Obstructive sleep apnea ?Patient apparently has not tolerated PAP therapy 10.? Tobacco dependence - Counseled on cessation, offered nicotine patch for tobacco cravings 11.? GERD ?Patient is on H2 blockers 12.? Dyslipidemia -Patient is on statin therapy, continued at home dose 13.? DVT prophylaxis Not indicated since patient is on Xarelto. Physical Exam Const alert General Appearance: cooperative HEENT head/scalp atraumatic Eyes conjunctivae normal Resp normal respiratory effort and no use of accessory muscles Cardio Negative for regular rate or regular rhythm GI normal to inspection, nondistended, normoactive bowel sounds Extremity no clubbing, cyanosis or edema Neuro no focal motor deficits Sensorium / Orientation: oriented to person Psych affect normal ABG / Lab / Microbiology Data Result Diagrams: 02/16/21 05:06 02/16/21 05:06 Laboratory: Laboratory Results - last 24 hr 02/15/21 02/15/21 02/15/21 11:25 15:59 21:43 WBC RBC Hgb Hct MCV MCH MCHC RDW Std Deviation RDW Coeff of Courtney Plt Count MPV Immature Gran % (Auto) Neut % (Auto) Lymph % (Auto) [place] % (Auto) Eos % (Auto) Baso % (Auto) Absolute Neuts (auto) Absolute Lymphs (auto) Nucleated RBC % Sodium Potassium Chloride Carbon Dioxide Anion Gap BUN Creatinine Estim Creat Clear Calc Est GFR (MDRD) Af Amer Est GFR (MDRD) Non-Af BUN/Creatinine Ratio Glucose Calcium Magnesium POC Glucose 171 H 141 H 163 H 02/16/21 02/16/21 02/16/21 05:06 05:06 06:45 WBC 9.2 RBC 4.97 Hgb 13.6 Hct 48.0 MCV 96.6 H MCH 27.4 MCHC 28.3 L RDW Std Deviation 56.8 H RDW Coeff of Courtney 15.9 H Plt Count 195 MPV 10.1 Immature Gran % (Auto) 0.200 Neut % (Auto) 82.1 H Lymph % (Auto) 7.3 L [place]well % (Auto) 9.8 Eos % (Auto) 0.1 Baso % (Auto) 0.5 Absolute Neuts (auto) 7.6 Absolute Lymphs (auto) 0.67 L Nucleated RBC % 0 Sodium 135 L Potassium 4.7 Chloride 92 L Carbon Dioxide 43.0 H Anion Gap 0 L BUN 17 Creatinine 1.02 Estim Creat Clear Calc 89.81 Est GFR (MDRD) Af Amer 97 Est GFR (MDRD) Non-Af 80 BUN/Creatinine Ratio 16.7 Glucose 141 H Calcium 8.5 Magnesium 2.0 POC Glucose 134 H Radiography Diagnostic Testing: Radiology Impression Echocardiogram 02/14/21 04:45 Interpretation Summary Normal LV size. Left ventricular systolic function is normal. The estimated ejection fraction is 55 %. Mildly dilated right ventricle. Pulmonary artery systolic pressure is 44 mmHg. Contrast injection was performed. Ordering Physician: Pj Jiménez Referring Physician: Thompson Ramos Performed By: Ady Vo RCS D/C Instructions Discharge Diet: Low fat / Low cholesterol, 1800 Calorie Control Diet, 8 Cup Fluid Restriction and 2000 mg Sodium Diet Discharge Activity: Return to Normal Activity Call your doctor if you observe: Fever of 101 or Higher, Shortness of breath, Fainting spells and Chest pain Meaningful Use Info Meaningful Use Diagnoses (Choose all that apply): CHF CHF ARNALDO/ARB ordered at discharge?: No Reason ARNALDO/ARB not ordered?: Not indicated Documented LVEF (%): 55 Discharge Plan Admission Admit Date/Time: 02/14/21 03:34 Primary Reason for Your Visit: AFIB; CHF Attending Provider: Nicola Lowry Primary Care Provider: Thompson Ramos Consulting Providers: Anna Ann Discharge Orders/Prescriptions Prescriptions: New furosemide [Lasix] 40 mg tablet 40 mg PO BID Qty: 60 RF: 0 Continued albuterol sulfate [ProAir RespiClick] 90 mcg/actuation aerosol powdr breath activated 2 puff INHALATION Q4H PRN (Reason: shortness of breath or wheezing) Qty: 1 RF: 6 pravastatin 80 MG tablet 80 mg PO QHS RF: 0 metformin 500 MG tablet 500 mg PO BID RF: 0 famotidine 20 MG tablet 20 mg PO BID RF: 0 folic acid 1 MG tablet 1 mg PO DAILY RF: 0 carvedilol 6.25 mg tablet 18.75 mg PO BID RF: 0 spironolactone 25 mg tablet 25 mg PO BID RF: 0 Xarelto 20 mg tablet 20 mg PO DAILY RF: 0 Trelegy Ellipta 100-62.5-25 mcg blister with device 1 inh INHALATION QDAY Qty: 60 RF: 6 Referrals / Follow Up: Thompson Ramos DO [Primary Care Provider] - In 1 Week Disposition Disposition (needs filled in before D/C Order can be placed): Home, self care Visit Charges Inpatient E&M: 79362 Disch Hosp
--- NOTE | 2021-02-16 12:18 | PHA.DC.MC ---
Pharmacy Service has performed discharge medication reconciliation and counseling for this patient. 1. FUROSEMIDE 40MG PO BID The patient's discharge medication list was reviewed for discrepancies and discrepancies were resolved. Patient initially requested a paper script when clinical pharmacy specialist was in the room. When I went in and explained that it was sent electronically they were okay with that and did not need a paper script. Home Medications pravastatin 80 mg PO QHS 07/29/17 albuterol sulfate 90 mcg/actuation breath activated powder inhaler 2 puff INHALATION Q4H PRN #1 ea 10/25/17 famotidine 20 mg PO BID 01/05/18 folic acid 1 mg PO DAILY 01/05/18 metformin 500 mg PO BID 01/05/18 fluticasone fur. 100 mcg-umeclid 62.5 mcg-vilant 25 mcg inhalat.powder 1 inh INHALATION QDAY #60 ea 07/09/20 Xarelto 20 mg PO DAILY 02/14/21 carvedilol 18.75 mg PO BID 02/14/21 spironolactone 25 mg PO BID 02/14/21 furosemide [Lasix] 40 mg PO BID #60 tab 02/16/21 The patient was counseled on the following discharge medications and changes in medications for homegoing were reviewed. The Reason for Use, instructions for use, and potential side effects were reviewed for all new medications. The patient's questions regarding all of their medications were answered. The patient was able to verbally demonstrate an understanding of their discharge medications. Patient counseled by clinical pharmacy specialist
--- NOTE | 2021-02-16 12:34 | CASEMGMT ---
RN CM in to pt room per brother request. Pt and brother requesting records to be sent to [facility] bin operator, Dr. Negrete. Authorization to disclose PHI signed at this time. Faxed to Medical Records. Brother with many questions regarding dc. Asked if he wanted to speak to doctor and at first he stated he did, then changed his mind. He states we will handle it from here. Brother asking why therapy has not been in. Pt states they were in yesterday but he did not want to walk. Notified pt nurse that pt asking when he can be dc'd.
== END 2021-02-16 11:43 | disposition home or self-care (01) ==
LOC: ED 02-14 03:01 → PCU 02-14 03:58
PROVIDERS: Admitting Provider Hospitalist; Emergency Provider Emergency Medicine; PCP Preventive Medicine Occupational Medicine; Visit Provider Internal Medicine
DX: I48.91 Unspecified atrial fibrillation (principal); I11.0 Hypertensive heart disease with heart failure; I50.32 Chronic diastolic (congestive) heart failure; J44.9 Chronic obstructive pulmonary disease, unspecified; F17.210 Nicotine dependence, cigarettes, uncomplicated; J96.11 Chronic respiratory failure with hypoxia; G47.33 Obstructive sleep apnea (adult) (pediatric); E78.5 Hyperlipidemia, unspecified; N17.9 Acute kidney failure, unspecified; E11.65 Type 2 diabetes mellitus with hyperglycemia; F10.10 Alcohol abuse, uncomplicated; Z79.84 Long term (current) use of oral hypoglycemic drugs; Z79.899 Other long term (current) drug therapy; Z68.39 Body mass index [BMI] 39.0-39.9, adult; E66.01 Morbid (severe) obesity due to excess calories; K21.9 Gastro-esophageal reflux disease without esophagitis
CPT/HCPCS: 36415; 71045; 71275; 80048; 82962; 83735; 83880; 84443; 84484; 85025; 85379; 93005; 93306; 94640; 96361; 96374; 96375; 96376; 99218; 99285; J7040; Q9957; Q9967; A4216; C8929; G0378; J1940